=== PATIENT | male | born 1950 | race African-American/Black ===

== ENCOUNTER 2018-03-03 17:07 | Observation (INO) | payer OTHER ==
--- NOTE | 2018-03-03 18:20 | RAD REPORT ---
EXAM DESCRIPTION: CT - Head Brain Wo Cont - 03/03/2018 6:09 pm CLINICAL HISTORY: Syncope COMPARISON: None. TECHNIQUE: Computed axial tomography of the head was obtained. IV contrast was not requested. All CT scans are performed using dose optimization technique as appropriate and may include automated exposure control or mA/KV adjustment according to patient size. FINDINGS: An intracranial bleed is not seen . The ventricles are normal in caliber. A 1 centimeter low-density area within the right basal ganglia has the appearance of an old lacunar infarction. No extra-axial fluid collection is noted. Fluid within the sinuses/ mastoids is not seen. IMPRESSION: No acute intracranial abnormality is seen. If patient's symptoms persist MRI of the bra in would be recommended.
--- NOTE | 2018-03-03 18:30 | RAD REPORT ---
EXAM DESCRIPTION: Farhan Single View03/03/2018 6:14 pm CLINICAL HISTORY: Chest pain COMPARISON: 2013 FINDINGS: The lungs appear clear of acute infiltrate. The heart is borderline enlarged IMPRESSION: No acute abnormalities displayed
[2018-03-03 19:06] LABS: Absolute Monocytes 0.6 K/uL (0.1-1.3); Absolute Neutrophil 8.1 K/uL (1.8-8.0); Basophils % 0.5 % (0-1.3); Eosinophils % 1.9 % (0-4.4); Hematocrit 28.7 % (39.6-49.0); Lymphocytes % 10.1 % (15.3-44.8); MPV 8.2 fL (7.6-11.3); Monocytes % 6.2 % (3.3-12.3); Protime INR 1.46; RBC Red Blood Cell Count 3.44 M/uL (4.33-5.43)
--- NOTE | 2018-03-03 19:30 | ER ---
Nurse's Notes [facility] Name: Win Zheng Age: 67 yrs Sex: Male : 1950 Arrival Date: 03/03/2018 Time: 17:07 Bed 14 Private MD: Diagnosis: Syncope and collapse;Atrial fibrillation and flutter;Anemia, unspecified;Unspecified kidney failure Presentation: 03/03 17:09 Presenting complaint: EMS states: Pt became unresponsive and had a blank stare on his hb face for approx 2 minutes while sitting in truck, also had episode of bowel incontinence. 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 Transition of care: patient was not received from another setting of care. Onset of symptoms. Risk Assessment: Do you want to hurt yourself or someone else? Patient reports no desire to harm self or others. Care prior to arrival: None. 17:09 Method Of Arrival: EMS: [facility] 17:09 Acuity: RHONA 3 hb 17:10 Initial Sepsis Screen: Does the patient meet any 2 criteria? No. Patient's initial rb1 sepsis screen is negative. Does the patient have a suspected source of infection? No. Patient's initial sepsis screen is negative. Triage Assessment: 17:10 Neuro: Reports a syncopal episode. rb1 Historical: - Allergies: 17:14 No Known Allergies; hb - Home Meds: 17:14 celecoxib 200 mg Oral cap 1 cap once daily [Active]; glimepiride 1 mg Oral tab 1 tab hb twice a day [Active]; hydralazine 50 mg Oral tab 1 tab 2 times per day [Active]; losartan 100 mg Oral tab 1 tab once daily [Active]; simvastatin 40 mg Oral tab 1 tab once daily [Active]; sotalol 80 mg Oral tab 1 tab daily [Active]; spironolactone 25 mg Oral tab 1 tab once daily [Active]; tamsulosin 0.4 mg Oral cp24 1 cap once daily [Active]; terazosin 2 mg Oral cap 1 cap twice a day [Active]; Tradjenta 5 mg Oral tab 1 tab once daily [Active]; Xarelto 15 mg Oral tab [Active]; - PMHx: 17:14 Atrial Fib; Diabetes - NIDDM; Hyperlipidemia; Hypertension; hb - PSHx: 17:14 None; hb - Immunization history:: Adult Immunizations up to date. - Social history:: Smoking status: Patient/guardian denies using tobacco. - Ebola Screening: : No symptoms or risks identified at this time. Screenin:15 Abuse screen: Denies threats or abuse. Denies injuries from another. Nutritional hb screening: No deficits noted. Tuberculosis screening: No symptoms or risk factors identified. Fall Risk Total Mahoney Fall Scale indicates High Risk Score (45 or more points). Fall prevention measures have been instituted. Side Rails Up X 2 Frequent Obs/Assessments Occuring As available patient and family educated on Fall Prevention Program and Strategies. Assessment: 17:10 General: Appears in no apparent distress. comfortable, Behavior is calm, cooperative, rb1 Denies fever. Pain: Denies pain. Neuro: Level of Consciousness is awake, alert, obeys commands, Oriented to person, place, time, situation. Cardiovascular: Capillary refill < 3 seconds is brisk in bilateral fingers Rhythm is irregular. Respiratory: Airway is patent Respiratory effort is even, unlabored, Respiratory pattern is regular, symmetrical, Denies shortness of breath. GI: incontinent of stool and urine during the initial episode before arriving to the hospitial. : incontinence. Derm: Skin is dry, Skin is normal, Skin temperature is warm. Musculoskeletal: Range of motion: intact in all extremities. 18:10 Reassessment: Patient appears in no apparent distress at this time. No changes from rb1 previously documented assessment. Family at bedside. 19:19 General: Appears in no apparent distress. comfortable, Behavior is calm, cooperative, tl2 appropriate for age. Pain: Denies pain. Neuro: Level of Consciousness is awake, alert, obeys commands, Oriented to person, place, time, situation, Speech is normal, Facial symmetry appears normal. Cardiovascular: Denies chest pain, Rhythm is irregular. Respiratory: Airway is patent Respiratory effort is even, unlabored, Respiratory pattern is regular, symmetrical. GI: No signs and/or symptoms were reported involving the gastrointestinal system. : No signs and/or symptoms were reported regarding the genitourinary system. Derm: Skin is pink, warm \T\ dry. 20:30 Reassessment: Patient appears in no apparent distress at this time. Patient and/or tl2 family updated on plan of care and expected duration. Pain level reassessed. Patient is alert, oriented x 3, equal unlabored respirations, skin warm/dry/pink. 21:30 Reassessment: Patient appears in no apparent distress at this time. Patient and/or tl2 family updated on plan of care and expected duration. Pain level reassessed. Patient is alert, oriented x 3, equal unlabored respirations, skin warm/dry/pink. 23:31 Reassessment: Patient appears in no apparent distress at this time. Patient and/or tl2 family updated on plan of care and expected duration. Pain level reassessed. Patient is alert, oriented x 3, equal unlabored respirations, skin warm/dry/pink. pt stable and ready for transport to floor. Vital Signs: 17:15 BP 120 / 64; Pulse 62; Resp 16; Temp 98.1; Pulse Ox 97% on R/A; Pain 0/10; hb 18:45 BP 108 / 62; Pulse 63; Resp 24; Temp 97.9; Pulse Ox 100% ; hs1 19:18 BP 110 / 65; Pulse 68; Resp 20; Pulse Ox 98% on R/A; tl2 22:15 BP 114 / 58; Pulse 72; Resp 16; Pulse Ox 100% on R/A; tl2 Vitals: 19:18 Cardiac Rhythm Assessment Irregular. tl2 22:15 Cardiac Rhythm Assessment Irregular. tl2 ED Course: 17:07 Patient arrived in ED. hb 17:10 Patient has correct armband on for positive identification. Placed in gown. Bed in low rb1 position. Call light in reach. Side rails up X2. personnel monitor on. Pulse ox on. NIBP on. Warm blanket given. 17:13 Elliott Serrano MD is Attending Physician. kdr 17:13 Triage completed. hb 17:15 Arm band placed on. hb 17:15 Inserted saline lock: 22 gauge in right antecubital area, using aseptic technique. rb1 Blood collected. 17:26 EKG done, by air quality technician. reviewed by Elliott Serrano MD. sm3 17:27 Sandra Weeks, RN is Primary Nurse. rb1 18:08 CT Head Brain wo Cont In Process Unspecified. EDMS 18:14 CT completed. Patient tolerated procedure well. Patient moved back from CT. vm2 18:15 XRAY Chest (1 view) In Process Unspecified. EDOR 18:54 Attending Physician role handed off by Elliott Serrano MD [place] 18:54 Morro Diaz MD is Attending Physician. [place] 18:55 Report given to ANA Wu. rb1 19:26 Anna Marie Medina MD is Hospitalizing Provider. qing 20:56 Moose Duval MD is Hospitalizing Provider. qing 23:31 No provider procedures requiring assistance completed. Patient did not have IV access tl2 during this emergency room visit. Administered Medications: No medications were administered Outcome: 19:28 Decision to Hospitalize by Provider. qing 23:32 Admitted to Med/surg accompanied by tech, family with patient, via wheelchair, room tl2 429, with chart, Report called to ANA Rosado 23:32 Condition: stable 23:32 Discharge instructions given to patient, family, Instructed on the need for admit. 23:33 Patient left the ED. tl2 Signatures: Dispatcher [employer] EDOR Morro Diaz MD MD cha Rittger, Kevin, MD MD [facility] Sandra Weeks, RN RN rb1 Viv Acharya RN RN hb Knox, Taylor, RN RN tl2 Sabi Morales 2 Sofiya Bishop 3 Shawn Reyes [facility]
--- NOTE | 2018-03-03 19:30 | EDPHYS ---
Physician Documentation [facility] Name: Win Zheng Age: 67 yrs Sex: Male : 1950 Arrival Date: 03/03/2018 Time: 17:07 Bed 14 Private MD: ED Physician Morro Diaz HPI: 03/03 18:33 This 67 yrs old Black Male presents to ER via EMS with complaints of Syncope. kdr 18:33 The patient has experienced syncope, became unresponsive, The patient's went in kdr the store to get a money order and when she came out, the patient was unresponsive in the front seat of the car and he had soiled himself. This had never happened before and the patient has no recollection of the events. Onset: The symptoms/episode began/occurred suddenly, just prior to arrival. Duration: This was a single episode, that lasted an unknown period of time. Context: the episode(s) was witnessed, by family, occurred on a street or driveway, occurred while the patient was sitting, Just prior to the episode the patient experienced unknown symptoms. Associated injury: The patient did not suffer any apparent associated injury. Associated signs and symptoms: Pertinent positives: Incontinent of stool. Current symptoms: Currently, the patient is not experiencing any symptoms, the patient feels back to baseline. The patient has not experienced similar symptoms in the past. The patient has not recently seen a physician. Historical: - Allergies: 17:14 No Known Allergies; hb - Home Meds: 17:14 celecoxib 200 mg Oral cap 1 cap once daily [Active]; glimepiride 1 mg Oral tab 1 tab hb twice a day [Active]; hydralazine 50 mg Oral tab 1 tab 2 times per day [Active]; losartan 100 mg Oral tab 1 tab once daily [Active]; simvastatin 40 mg Oral tab 1 tab once daily [Active]; sotalol 80 mg Oral tab 1 tab daily [Active]; spironolactone 25 mg Oral tab 1 tab once daily [Active]; tamsulosin 0.4 mg Oral cp24 1 cap once daily [Active]; terazosin 2 mg Oral cap 1 cap twice a day [Active]; Tradjenta 5 mg Oral tab 1 tab once daily [Active]; Xarelto 15 mg Oral tab [Active]; - PMHx: 17:14 Atrial Fib; Diabetes - NIDDM; Hyperlipidemia; Hypertension; hb - PSHx: 17:14 None; hb - Immunization history:: Adult Immunizations up to date. - Social history:: Smoking status: Patient/guardian denies using tobacco. - Ebola Screening: : No symptoms or risks identified at this time. ROS: 18:33 Constitutional: Negative for fever, chills, and weight loss, Eyes: Negative for injury, kdr pain, redness, and discharge, ENT: Negative for injury, pain, and discharge, Neck: Negative for injury, pain, and swelling, Cardiovascular: Negative for chest pain, palpitations, and edema, Respiratory: Negative for shortness of breath, cough, wheezing, and pleuritic chest pain, Abdomen/GI: Negative for abdominal pain, nausea, vomiting, diarrhea, and constipation, Back: Negative for injury and pain, : Negative for injury, bleeding, discharge, and swelling, MS/Extremity: Negative for injury and deformity, Skin: Negative for injury, rash, and discoloration, Psych: Negative for depression, anxiety, suicide ideation, homicidal ideation, and hallucinations, Allergy/Immunology: Negative for hives, rash, and allergies, Endocrine: Negative for neck swelling, polydipsia, polyuria, polyphagia, and marked weight changes, Hematologic/Lymphatic: Negative for swollen nodes, abnormal bleeding, and unusual bruising. 18:33 Neuro: Positive for loss of consciousness, syncope, weakness, Negative for headache, seizure activity, tremor. Exam: 18:33 Constitutional: This is a well developed, well nourished patient who is awake, alert, kdr and in no acute distress. Head/Face: Normocephalic, atraumatic. Eyes: Pupils equal round and reactive to light, extra-ocular motions intact. Lids and lashes normal. Conjunctiva and sclera are non-icteric and not injected. Cornea within normal limits. Periorbital areas with no swelling, redness, or edema. Neck: Trachea midline, no thyromegaly or masses palpated, and no cervical lymphadenopathy. Supple, full range of motion without nuchal rigidity, or vertebral point tenderness. No Meningismus. Chest/axilla: Normal chest wall appearance and motion. Nontender with no deformity. No lesions are appreciated. Respiratory: Lungs have equal breath sounds bilaterally, clear to auscultation and percussion. No rales, rhonchi or wheezes noted. No increased work of breathing, no retractions or nasal flaring. Abdomen/GI: Soft, non-tender, with normal bowel sounds. No distension or tympany. No guarding or rebound. No evidence of tenderness throughout. Back: No spinal tenderness. No costovertebral tenderness. Full range of motion. Skin: Warm, dry with normal turgor. Normal color with no rashes, no lesions, and no evidence of cellulitis. MS/ Extremity: Pulses equal, no cyanosis. Neurovascular intact. Full, normal range of motion. Neuro: Awake and alert, GCS 15, oriented to person, place, time, and situation. Cranial nerves II-XII grossly intact. Motor strength 5/5 in all extremities. Sensory grossly intact. Cerebellar exam normal. Normal gait. Psych: Awake, alert, with orientation to person, place and time. Behavior, mood, and affect are within normal limits. 18:33 Cardiovascular: Rate: normal, Rhythm: irregularly irregular. Vital Signs: 17:15 BP 120 / 64; Pulse 62; Resp 16; Temp 98.1; Pulse Ox 97% on R/A; Pain 0/10; hb 18:45 BP 108 / 62; Pulse 63; Resp 24; Temp 97.9; Pulse Ox 100% ; hs1 19:18 BP 110 / 65; Pulse 68; Resp 20; Pulse Ox 98% on R/A; tl2 22:15 BP 114 / 58; Pulse 72; Resp 16; Pulse Ox 100% on R/A; tl2 MDM: 18:33 Data reviewed: vital signs, nurses notes, lab test result(s), radiologic studies. kdr Counseling: I had a detailed discussion with the patient and/or guardian regarding: the historical points, exam findings, and any diagnostic results supporting the discharge/admit diagnosis, lab results, radiology results. 18:55 Patient medically screened. qing 03/03 17:14 Order name: Basic Metabolic Panel; Complete Time: 19:51 kdr 03/03 17:14 Order name: CBC with Diff; Complete Time: 19:51 kdr 03/03 17:14 Order name: LFT's; Complete Time: 19:51 kdr 03/03 17:14 Order name: Magnesium; Complete Time: 19:51 kdr 03/03 17:14 Order name: NT PRO-BNP; Complete Time: 19:51 kdr 03/03 17:14 Order name: PT-INR; Complete Time: 19:25 kdr 03/03 17:14 Order name: Troponin (emerg Dept Use Only); Complete Time: 19:51 kdr 03/03 17:14 Order name: XRAY Chest (1 view); Complete Time: 19:25 kdr 03/03 17:14 Order name: EKG; Complete Time: 17:14 kdr 03/03 17:14 Order name: Cardiac monitoring; Complete Time: 17:49 kdr 03/03 17:23 Order name: CT Head Brain wo Cont; Complete Time: 18:23 kdr 03/03 19:08 Order name: CBC Smear Scan; Complete Time: 19:51 EDHI 03/03 20:05 Order name: Urine Dipstick--Ancillary (enter results) nv 03/03 21:00 Order name: CONS Physician Consult [facility] 03/03 17:14 Order name: EKG - Nurse/Tech; Complete Time: 17:49 kdr 03/03 17:14 Order name: IV Saline Lock; Complete Time: 17:49 [facility] 03/03 17:14 Order name: Labs collected and sent; Complete Time: 17:49 [facility] 03/03 17:14 Order name: O2 Per Protocol; Complete Time: 17:49 kdr 03/03 17:14 Order name: O2 Sat Monitoring; Complete Time: 17:50 [facility] 03/03 18:12 Order name: Labs - recollect needed; Complete Time: 18:27 03/03 20:13 Order name: Urine Dipstick-Ancillary (obtain specimen); Complete Time: 20:14 tl2 Administered Medications: No medications were administered Disposition: 03/03/18 19:28 Hospitalization ordered by Moose Duval for Observation. Preliminary diagnosis are Syncope and collapse, Atrial fibrillation and flutter, Anemia, unspecified, Unspecified kidney failure. - Bed requested for Telemetry/MedSurg (observation). - Status is Observation. tl2 - Condition is Fair. - Problem is new. - Symptoms have improved. UTI on Admission? No Signatures: Dispatcher [employer] [facility] Morro Diaz MD MD cha Rittger, Kevin, MD MD kdr Gallardo, Ana ag Garcia, Cindy, RN RN cg Baxter, Heather, RN RN Jazmin Blevins RN RN tl2 Corrections: (The following items were deleted from the chart) 19:52 19:28 Hospitalization Ordered by Anna Marie Medina MD for Observation. Preliminary qing diagnosis is Syncope and collapse; Atrial fibrillation and flutter. Bed requested for Telemetry/MedSurg (observation). Status is Observation. Condition is Fair. Problem is new. Symptoms have improved. UTI on Admission? No. qing 20:56 19:52 03/03/2018 19:28 Hospitalization Ordered by Anna Marie Medina MD for Observation. qing Preliminary diagnosis is Syncope and collapse; Atrial fibrillation and flutter; Anemia, unspecified; Unspecified kidney failure. Bed requested for Telemetry/MedSurg (observation). Status is Observation. Condition is Fair. Problem is new. Symptoms have improved. UTI on Admission? No. qing 21:18 20:56 03/03/2018 19:28 Hospitalization Ordered by Moose Duval MD for Observation. Preliminary diagnosis is Syncope and collapse; Atrial fibrillation and flutter; Anemia, unspecified; Unspecified kidney failure. Bed requested for Telemetry/MedSurg (observation). Status is Observation. Condition is Fair. Problem is new. Symptoms have improved. UTI on Admission? No. qing 22:32 21:18 03/03/2018 19:28 Hospitalization Ordered by Moose Duval MD for Observation. cg Preliminary diagnosis is Syncope and collapse; Atrial fibrillation and flutter; Anemia, unspecified; Unspecified kidney failure. Bed requested for Telemetry/MedSurg (observation). Status is Observation. Condition is Fair. Problem is new. Symptoms have improved. UTI on Admission? No. cg 23:33 22:32 03/03/2018 19:28 Hospitalization Ordered by Moose Duval MD for Observation. tl2 Preliminary diagnosis is Syncope and collapse; Atrial fibrillation and flutter; Anemia, unspecified; Unspecified kidney failure. Bed requested for Telemetry/MedSurg (observation). Status is Observation. Condition is Fair. Problem is new. Symptoms have improved. UTI on Admission? No. cg
[2018-03-03 19:33] LABS: Potassium 4.5 mmol/L (3.5-5.1)
[2018-03-03 19:34] LABS: Albumin 3.5 g/dL (3.4-5.0); Bilirubin Direct 0.1 mg/dL (0-0.2); Bilirubin Total 0.3 mg/dL (0.2-1.0); Protein, Total 8.2 g/dL (6.4-8.2)
[2018-03-03 19:35] LABS: Magnesium 2.3 mg/dL (1.8-2.4); Troponin (Emerg Dept Use Only) 0.12 ng/mL (0.0-0.045)
[2018-03-03 19:37] LABS: Anisocytosis 1+; Blood Morphology Comment NOTED (NOT SEEN); Platelet Estimate ADEQ; Urine White Blood Cell Casts OK
[2018-03-03 19:38] LABS: Elliptocytes 1+; Macrocytosis SLIGHT; Spherocyte 1+
[2018-03-03 21:08] LABS: Urine Blood NEGATIVE (NEG); Urine Glucose NEGATIVE (NEG); Urine Protein NEGATIVE (NEG); Urine Specific Gravity 1.015 (1.005-1.030)
[2018-03-03] MEDS ORDERED: ONDANSETRON 4 MG/2 ML VIAL IV PRN (23:56)
[2018-03-03] MEDS ORDERED: ACETAMINOPHEN 500 MG TAB PO PRN (23:56)
[2018-03-04 00:07] VITALS: BMI 34.2
[2018-03-04 05:14] LABS: Absolute Lymphocytes (CBC) 1.4 K/uL (0.7-4.9); Absolute Monocytes 0.6 K/uL (0.1-1.3); Absolute Neutrophil 4.8 K/uL (1.8-8.0); Basophils % 0.4 % (0-1.3); Eosinophils % 2.4 % (0-4.4); Hematocrit 27.5 % (39.6-49.0); Lymphocytes % 20.3 % (15.3-44.8); MPV 8.3 fL (7.6-11.3); Monocytes % 8.5 % (3.3-12.3)
--- NOTE | 2018-03-04 07:47 | EKG ---
Test Date: 2018-03-03 Test Time: 17:19:57 [employer]: [employer] MEASUREMENT RESULTS: Intervals: Rate: 64 NE: 224 QRSD: 76 QT: 460 QTc: 474 [place]: P: 13 NE: 224 QRS: 45 T: 24 INTERPRETIVE STATEMENTS: Sinus rhythm with 1st degree AV block with premature supraventricular complexes Septal infarct, age undetermined Abnormal ECG Compared to ECG 05/11/2013 19:55:11 First degree AV block now present Myocardial infarct finding now present Left-axis deviation no longer present Left ventricular hypertrophy no longer present T-wave abnormality no longer present Possible ischemia no longer present Prolonged QT interval no longer present Electronically Signed On 03-04-18 07:45:56 MONITOR TECH by Ash Loya
[2018-03-04] MEDS ORDERED: NA CHLORIDE 0.9% 1,000 ML IV SCH (09:00)
--- NOTE | 2018-03-04 09:07 | RAD REPORT ---
EXAM DESCRIPTION: Farhan Single View03/04/2018 6:32 am CLINICAL HISTORY: Chest pain COMPARISON: March 03, 2018 FINDINGS: Right base has become mildly hazy. Left lung appears clear. The heart is mildly enlarged IMPRESSION: Right base has become mildly hazy which may indicate atelectasis or pneumonia
--- NOTE | 2018-03-04 09:23 | P.HP ---
Certification for Inpatient Patient admitted to: Inpatient With expected LOS: >2 Midnights Practitioner: I am a practitioner with admitting privileges, knowledge of patient current condition, hospital course, and medical plan of care. Services: Services provided to patient in accordance with Admission requirements found in Title 42 Section 412.3 of the Code of Federal Regulations Patient History Date of Service: 03/04/18 Primary Care Provider: Valerie Hoffman Reason for admission: Syncope, acute on chronic renal failure History of Present Illness: Patient is a pleasant gentleman who sees Valerie Hoffman. He has a history of atrial fib, cad, dm2, stage 3 ckd. He had a syncopal episode yesterday in his truck. Was post ictal for a few minutes. Was brought to the ER. He has a slight elevation in his troponins. The patient has been having runs of a fib throught the night in the hospital. He has a baseline creatine of 2.2. Currently 3.2. The patient has not been having any chest pain, syncope or near syncope episodes during the evening. Despite the runs of afib with rvr. Allergies No Known Allergies Allergy (Unverified 05/10/13 08:57) - Past Medical/Surgical History Has patient received pneumonia vaccine in the past: No Diabetic: Yes -: Afib -: Anemia -: KIdney Failure -: Diabetes - Family History Father -: Hypertension, Diabetes Mother -: Hypertension - Social History Smoking Status: Never smoker Alcohol use: Yes CD- Drugs: No Caffeine use: Yes Place of Residence: Home Review of Systems 10-point ROS is otherwise unremarkable General: Other (syncopal episode) Physical Examination - Vital Signs Temperature: 98.1 F Blood Pressure: 108/58 Pulse: 65 Respirations: 17 Pulse Ox (%): 95 - Physical Exam General: Alert, In no apparent distress HEENT: Atraumatic, PERRLA, Mucous membr. moist/pink, EOMI, Sclerae nonicteric Neck: Supple, 2+ carotid pulse no bruit, No LAD, Without JVD or thyroid abnormality Respiratory: Clear to auscultation bilaterally, Normal air movement Cardiovascular: Regular rate/rhythm, Normal S1 S2 Gastrointestinal: Normal bowel sounds, No tenderness Musculoskeletal: No tenderness Integumentary: No rashes Neurological: Normal gait, Normal speech, Normal strength at 5/5 x4 extr, Normal tone, Normal affect Lymphatics: No axilla or inguinal lymphadenopathy - Studies Laboratory Data (last 24 hrs) 03/03/18 18:50: PT 17.3 H, INR 1.46 03/03/18 18:50: WBC 10.0, Hgb 9.5 L, Hct 28.7 L, Plt Count 221 03/03/18 18:50: Sodium 139, Potassium 4.5, BUN 59 H, Creatinine 3.35 H, Glucose 108 H, Magnesium 2.3, Total Bilirubin 0.3, AST 16, ALT 21, Alkaline Phosphatase 90 Assessment and Plan - Problems (Diagnosis) (1) Atrial fibrillation with RVR Current Visit: Yes Status: Acute Plan: Restart the patient's sotolol. Will get an echocardiogram. Has a consult to Dr. Dyson his regular manager performance. (2) Acute renal failure superimposed on stage 3 chronic kidney disease Current Visit: Yes Status: Acute Plan: Consult to Dr. Zimmerman. Hold the losartan. Start the patient on iv fluids. will monitor his creatine. Qualifiers: Acute renal failure type: unspecified Qualified Code(s): N17.9 - Acute kidney failure, unspecified; N18.3 - Chronic kidney disease, stage 3 (moderate) (3) CAD (coronary artery disease) Current Visit: Yes Status: Acute Plan: Mild elevation of troponins. Asymptomatic. Not too concerning. However will be seen by Dr. Dyson. Qualifiers: Coronary Disease-Associated Artery/Lesion type: [place] artery [place] vs. transplanted heart: [place] heart Associated angina: without angina Qualified Code(s): I25.10 - Atherosclerotic heart disease of [place] coronary artery without angina pectoris (4) Diabetes 1.5, managed as type 2 Current Visit: Yes Status: Acute Plan: check a1c. Will start on insulin sliding scale. Discharge Plan: Home Plan to discharge in: 48 Hours - Advance Directives Does patient have a Living Will: No Does patient have a Durable POA for Healthcare: No - Code Status/Comfort Care Code Status Assessed: Yes Code Status: Full Code Physician Review: Patient Assessed, Agree with Above Assessment and Plan Critical Care: No Time Spent Managing Pts Care (In Minutes): 50
[2018-03-04] MEDS ORDERED: D50W 25 GM/50 ML SYRINGE IV PRN (09:30)
[2018-03-04] MEDS ORDERED: GLUCAGON 1 MG/VIAL IM PRN (09:30)
[2018-03-04] MEDS: INSULIN -REGULAR HUMAN 50 UNIT/0.5 ML ML SQ SCH ×3 (11:30→21:00)
[2018-03-04] MEDS: NACHLORIDE 0.45% 1,000 ML IV SCH (12:00)
--- NOTE | 2018-03-04 15:21 | RAD REPORT ---
EXAM DESCRIPTION: US - Renal Ultrasound-Complete - 03/04/2018 3:02 pm CLINICAL HISTORY: Acute renal failure COMPARISON: RP EXAM COMPLETE dated 05/14/2013 FINDINGS: Both kidneys are normal in size, shape and echotexture. Small benign renal cysts are prese nt bilaterally. The right kidney measures 10.5 x 6.3 x 4.8 cm. No hydronephrosis, focal mass or perinephric fluid. The left kidney measures 10.9 x 4.8 x 4.8 cm. No hydronephrosis, focal mass or perinephric fluid. The urinary bladder is incompletely distended without gross abnormality seen. IMPRESSION: Unremarkable renal sonogram.
--- NOTE | 2018-03-04 16:14 | CON ---
Date of Consultation: 03/04/2018 Reason For Consult: Acute on chronic renal insufficiency. History Of Present Illness: Mr. Zheng is a 67-year-old male with past medical history significant for morbid obesity, hypertension, atrial fibrillation, chronic stage 3 CKD, type 2 diabetes, who pre sented to [facility] after he was found to have a syncopal episode by his family. The patie nt's daughter is reporting that he picked his daughter up from work and after they stopped over at e grocery store and when the daughter got back to the truck, she found her father sleeping and kind o f unresponsive. He was able to be aroused, but was able to recognize them, however, passed out again and hence, she brought him to the hospital for further evaluation for evaluation of syncope. He was found to have acute on chronic renal insufficiency with slight elevations of troponins and runs of a trial fibrillation throughout the night in the hospital. He has also been started on IV fluids to im prove his renal function. Past Medical History: Significant for history of atrial fibrillation, anemia, CKD stage 3, type 2 di abetes, and obesity. The patient is on long-term anticoagulation. Family History: Significant for father with history of hypertension and diabetes. Mother with histo ry of hypertension. Social History: No history of smoking reported. Occasional alcohol use. No history of drug abuse r eported. Review of Systems: Positive for weakness and lethargy, but otherwise denies any decreased p.o. intake prior to this epis ode. Denies any abnormal involuntary movement during the syncopal episode. All other review of syst ems are negative. Physical Examination: Vital Signs: At this time are showing temperature of 98.1, pulse rate of 65, respiratory rate of 17, and blood pressure 108/58. General Examination: He is an obese male, in no acute distress. HEENT Examination: Atraumatic head. Lungs: Auscultation of lungs revealed bilateral equal air entry. The lungs were clear to auscultati on. Heart: Auscultation of the heart reveals irregular rate and rhythm. No carotid bruit was noted. Abdomen: Obese, nontender. Extremities: Showed no evidence of edema. Laboratory Data: Showing a creatinine of 3.3, which is about the same as yesterday. Sodium of 142, potassium of 4, chloride of 110, bicarb of 22. His A1c was 6.6 and troponin was sightly elevated to 0.1. Current Medications: Include he is getting normal saline at 75 cc an hour, sotalol 80 mg a day, miguel angel zosin 2 mg at bedtime, hydralazine 50 mg b.i.d., atorvastatin, Tylenol. Impression: 1.Acute on chronic renal insufficiency, possibly secondary to acute tubular necrosis from ongoing ir regular blood supply renal perfusion secondary to possibly from atrial fibrillation. The patient is getting IV fluids at this time. His blood pressure seems to be overall stable. We will go ahead and changed IV fluids to half-normal saline and monitor him closely. 2.History of atrial fibrillation seems to be rate controlled at this time. However, troponin has bu mped up, possibly from strain. We are awaiting Cardiology evaluation for further treatment. 3.Hypertension, currently slightly hypotensive. The patient is on terazosin, which I will discontin ue. We will continue the hydralazine for now and monitor it closely. 4.Type 2 diabetes, not sure what the patient was taking at home. The patient's home medications can be restarted secondary to ongoing hyperglycemia. Plan: The patient is overall doing okay at this time. We will go ahead and change the IV fluids to half-normal saline and monitor renal function closely. He is nonoliguric. We will also request a ur inalysis to rule out urinary tract infection and also get a renal ultrasound for further evaluation. Continue all other medications. Thank you very much for this consultation. Please do not hesitate to call us with any questions or c oncerns. CANDELARIA/LINCOLN Voice ID: [id number] Report ID: [id number]
[2018-03-04] MEDS ORDERED: ENOXAPARIN 30 MG/0.3 ML SQ SCH (17:00)
--- NOTE | 2018-03-04 17:02 | CON ---
Reason For Admission: The patient's main reason for admission was syncope. History Of Present Illness: Mr. Zheng is a 67-year-old black male who has an extensive past medic al history including chronic atrial fibrillation, diabetes, hypertension, dyslipidemia, arthritis, an d benign prostatic hypertrophy. He takes an extensive list of medication which I believe may have ca used his symptoms. He came in with a syncopal episode. No chest pain. He was found to have a creat inine of 3.32. He was anemic at 9.1. Troponin was 0.11 and 0.12. An echocardiogram is pending. Allergies: NONE. Review of Systems: Negative. Social History: Negative. Family History: Negative. Medications: At home include Flomax, Aldactone, Hytrin, Glucophage, Celebrex, hydralazine, Zocor, so talol and Xarelto. Physical Examination: Vital Signs: Stable. He was in sinus rhythm. HEENT: Negative. Neck: Supple with no bruit. Chest: Clear. Cardiac: Revealed a regular rhythm and rate with an S4 gallops. No murmurs or rubs. Abdomen: Benign. Extremities: Revealed no clubbing, cyanosis, or edema. Diagnostic Data: Stated earlier. CT of the head was negative. EKG was normal. Impression And Plan: 1.I think, Mr. Verde syncope is most likely secondary to orthostatic hypotension, exacerbated by renal failure and anemia. 2.Elevated troponin secondary to renal failure. 3.Benign prostatic hypertrophy. 4.Hypertension. 5.Diabetes. 6.Atrial fibrillation, resolved, on sotalol and Xarelto. 7.Dyslipidemia. I think, Mr. Zheng' combination of Flomax, Hytrin, and Aldactone certainly could have contributed to his syncope. I would see if we can get off at least one of those medications for now. We will se e what the echocardiogram shows. It may be reasonable to do an outpatient carotid Doppler and a Phyllis scan on him and maybe an event monitor depending what we see. He needs his anemia addressed and his renal failure certainly addressed as well with renal consultation. CASSY/LINCOLN Voice ID: [id number] Report ID: [id number]
[2018-03-04] MEDS: RIVAROXABAN 15 MG TABLET PO SCH (17:46)
[2018-03-04] MEDS ORDERED: TERAZOSIN HCL 1 MG CAP PO SCH (21:00)
[2018-03-04] MEDS: HYDRALAZINE HCL 25 MG TABLET PO SCH (21:26)
[2018-03-04] MEDS: ATORVASTATIN 20 MG TAB PO SCH (21:26)
[2018-03-05] MEDS: NACHLORIDE 0.45% 1,000 ML IV SCH ×3 (01:20→14:40)
[2018-03-05 04:46] LABS: Absolute Lymphocytes (CBC) 1.3 K/uL (0.7-4.9); Absolute Monocytes 0.6 K/uL (0.1-1.3); Absolute Neutrophil 4.4 K/uL (1.8-8.0); Basophils % 0.5 % (0-1.3); Eosinophils % 3.3 % (0-4.4); Hematocrit 25.8 % (39.6-49.0); Lymphocytes % 20.2 % (15.3-44.8); MPV 7.7 fL (7.6-11.3); Monocytes % 9.3 % (3.3-12.3)
[2018-03-05 05:10] LABS: Albumin 3.1 g/dL (3.4-5.0); Bilirubin Total 0.3 mg/dL (0.2-1.0); Potassium 4.1 mmol/L (3.5-5.1); Protein, Total 7.4 g/dL (6.4-8.2); Thyroid Stimulating Hormone 1.53 uIU/mL (0.360-3.740)
[2018-03-05] MEDS: PANTOPRAZOLE 40MG TABLET PO SCH (06:17)
[2018-03-05] MEDS: SOTALOL HCL 80 MG TAB PO SCH (06:17)
[2018-03-05] MEDS: INSULIN -REGULAR HUMAN 50 UNIT/0.5 ML ML SQ SCH ×4 (07:30→20:59)
[2018-03-05] MEDS: HYDRALAZINE HCL 25 MG TABLET PO SCH ×2 (08:30→20:58)
--- NOTE | 2018-03-05 11:01 | P.PN ---
Subjective Date of Service: 03/05/18 Primary Care Provider: Valerie Hoffman Chief Complaint: Syncope, acute on chronic renal failure Subjective: Improving (no chest pains or palpations) Review of Systems 10-point ROS is otherwise unremarkable Physical Examination - Vital Signs Temperature: 97.4 F Blood Pressure: 133/67 Pulse: 68 Respirations: 17 Pulse Ox (%): 98 - Physical Exam General: Alert, In no apparent distress HEENT: Atraumatic, PERRLA, EOMI Neck: Supple, JVD not distended Respiratory: Clear to auscultation bilaterally, Normal air movement Cardiovascular: Regular rate/rhythm, Normal S1 S2 Gastrointestinal: Normal bowel sounds, No tenderness Musculoskeletal: No tenderness Integumentary: No rashes Neurological: Normal speech, Normal tone, Normal affect Lymphatics: No axilla or inguinal lymphadenopathy Assessment & Plan - Problems (Diagnosis) (1) Acute renal failure superimposed on stage 3 chronic kidney disease Current Visit: Yes Status: Acute Plan: Consult to Dr. Zimmerman. mild improvement. Not back to baseline. Will keep him one more. Day. If Dr. Zimmerman is oka with discharge we can send him. Will await her input Qualifiers: Acute renal failure type: unspecified Qualified Code(s): N17.9 - Acute kidney failure, unspecified; N18.3 - Chronic kidney disease, stage 3 (moderate) (2) Atrial fibrillation with RVR Current Visit: Yes Status: Acute Plan: Restart the patient's sotolol. Will get an echocardiogram. Has a consult to Dr. Dyson his regular vessel liner. (3) CAD (coronary artery disease) Current Visit: Yes Status: Acute Plan: Mild elevation of troponins. Asymptomatic. Not too concerning. However will be seen by Dr. Dyson. Qualifiers: Coronary Disease-Associated Artery/Lesion type: [place] artery [place] vs. transplanted heart: [place] heart Associated angina: without angina Qualified Code(s): I25.10 - Atherosclerotic heart disease of [place] coronary artery without angina pectoris (4) Diabetes 1.5, managed as type 2 Current Visit: Yes Status: Acute Plan: check a1c. Will start on insulin sliding scale. Discharge Plan: Home Plan to discharge in: 24 Hours - Code Status/Comfort Care Code Status Assessed: No Code Status: Full Code Physician Review: Patient Assessed, Agree with Above Assessment and Plan Critical Care: No Time Spent Managing Pts Care (In Minutes): 20
--- NOTE | 2018-03-05 13:59 | EKG ---
Test Date: 2018-03-04 Test Time: 07:56:55 Staffing Consultant: RAMONITA MEASUREMENT RESULTS: Intervals: Rate: 64 SC: QRSD: 78 QT: 442 QTc: 455 Davis: P: SC: QRS: 32 T: 1 INTERPRETIVE STATEMENTS: Atrial fibrillation Cannot rule out Anterior infarct, age undetermined Abnormal ECG Compared to ECG 03/03/2018 17:19:57 Sinus rhythm no longer present Atrial premature complex(es) no longer present First degree AV block no longer present Myocardial infarct finding still present Electronically Signed On 03-05-18 13:54:40 PLATINUM SMITH by Ash Loya
[2018-03-05] MEDS: RIVAROXABAN 15 MG TABLET PO SCH (16:50)
[2018-03-05] MEDS: ATORVASTATIN 20 MG TAB PO SCH (20:58)
--- NOTE | 2018-03-05 21:46 | PN ---
Date of Progress Note: 03/05/2018 NEPHROLOGY PROGRESS NOTE Subjective: The patient is seen at the bedside. No overnight events reported. The patient feels we ll. He denies any fevers, chills, chest pain, shortness of breath, nausea, vomiting, or diarrhea. Objective: Vital Signs: Blood pressure is 124/67, pulse 65, afebrile. General: Elderly, no acute distress. Heart: Regular rate and rhythm. No murmurs, rubs, or gallops. Lungs: Clear to auscultation bilaterally. Abdomen: Soft, nontender, nondistended. Positive bowel sounds x4. Extremities: No significant edema. Chronic contractures noted of the upper extremity. Laboratory Data: CBC reviewed. Hemoglobin 8.6, hematocrit 25.8. Serum chemistry; sodium 141, potas sium 4.1, chloride 110, CO2 of 21, BUN 63, creatinine 2.94. Creatinine yesterday was 3.32 and on adm ission was 3.35. The patient's usual baseline creatinine is approximately 3. The patient's UA from March 03 was bland. Current Medications: The patient is continued on half NS at 75 mL/h. Also on hydralazine 50 twice d aily, sotalol 80 mg daily, Xarelto 15 mg every evening. Impression: 1.Acute kidney injury on chronic kidney disease, likely in the setting of hypotension, volume deplet ion and atrial fibrillation. 2.Syncopal event as likely same etiology. 3.Atrial fibrillation. 4.Hypertension. Plan: Renal function is showing improvement. The patient's baseline creatinine is 3. We will jenn nue the patient on IV hydration. Blood pressure appears to be well controlled with the regimen, jay bowers has been down titrated from his usual home medications. Continue to monitor the patient's blood pr essure and will make adjustments as necessary. Continue cardiology followup. The patient does have anemia. Iron panel has been ordered to assess if there is any evidence of iron-deficiency anemia as the patient is above the threshold for use of erythropoietin stimulating agents. SE/MODL Voice ID: [id number] Report ID: [id number]
[2018-03-06] MEDS: NACHLORIDE 0.45% 1,000 ML IV SCH (02:42)
[2018-03-06] MEDS: SOTALOL HCL 80 MG TAB PO SCH (06:07)
[2018-03-06] MEDS: PANTOPRAZOLE 40MG TABLET PO SCH (06:07)
[2018-03-06] MEDS: INSULIN -REGULAR HUMAN 50 UNIT/0.5 ML ML SQ SCH ×2 (07:30→11:30)
[2018-03-06 07:44] LABS: Absolute Lymphocytes (CBC) 1.1 K/uL (0.7-4.9); Absolute Monocytes 0.4 K/uL (0.1-1.3); Absolute Neutrophil 3.9 K/uL (1.8-8.0); Basophils % 0.5 % (0-1.3); Eosinophils % 3.6 % (0-4.4); Hematocrit 26.6 % (39.6-49.0); Lymphocytes % 19.6 % (15.3-44.8); MPV 7.9 fL (7.6-11.3); Monocytes % 7.5 % (3.3-12.3); RBC Red Blood Cell Count 3.18 M/uL (4.33-5.43)
[2018-03-06 08:09] LABS: Albumin 3.2 g/dL (3.4-5.0); Bilirubin Total 0.3 mg/dL (0.2-1.0); Potassium 4.5 mmol/L (3.5-5.1); Protein, Total 7.4 g/dL (6.4-8.2)
[2018-03-06] MEDS: HYDRALAZINE HCL 25 MG TABLET PO SCH (09:13)
[2018-03-06 11:32] VITALS: O2SAT 99
--- NOTE | 2018-03-06 11:54 | P.PN ---
Subjective Date of Service: 03/06/18 Primary Care Provider: Valerie Hoffman Chief Complaint: Syncope, acute on chronic renal failure Subjective: Improving Review of Systems 10-point ROS is otherwise unremarkable Physical Examination - Vital Signs Temperature: 98.2 F Blood Pressure: 123/72 Pulse: 55 Respirations: 20 Pulse Ox (%): 99 - Physical Exam General: Alert, In no apparent distress HEENT: Atraumatic, PERRLA, EOMI Neck: Supple, JVD not distended Respiratory: Clear to auscultation bilaterally, Normal air movement Cardiovascular: Regular rate/rhythm, Normal S1 S2 Gastrointestinal: Normal bowel sounds, No tenderness Musculoskeletal: No tenderness Integumentary: No rashes Neurological: Normal speech, Normal tone, Normal affect Lymphatics: No axilla or inguinal lymphadenopathy Assessment & Plan - Problems (Diagnosis) (1) Acute renal failure superimposed on stage 3 chronic kidney disease Current Visit: Yes Status: Acute Plan: Consult to Dr. Zimmerman. mild improvement. Patient is at his baseline. Will discharge home. Follow up with PCP Tamiko Hoffman and Dr. Zimmerman Qualifiers: Acute renal failure type: unspecified Qualified Code(s): N17.9 - Acute kidney failure, unspecified; N18.3 - Chronic kidney disease, stage 3 (moderate) (2) Atrial fibrillation with RVR Current Visit: Yes Status: Acute Plan: carotid doppler suggested by Cardiology. Will have PTs pcp follow up on this (3) CAD (coronary artery disease) Current Visit: Yes Status: Acute Plan: Mild elevation of troponins. Asymptomatic. Not too concerning. However will be seen by Dr. Dyson. Qualifiers: Coronary Disease-Associated Artery/Lesion type: [place] artery [place] vs. transplanted heart: [place] heart Associated angina: without angina Qualified Code(s): I25.10 - Atherosclerotic heart disease of [place] coronary artery without angina pectoris (4) Diabetes 1.5, managed as type 2 Current Visit: Yes Status: Acute Plan: check a1c. Will start on insulin sliding scale. Discharge Plan: Home - Code Status/Comfort Care Code Status Assessed: No Code Status: Full Code Physician Review: Patient Assessed, Agree with Above Assessment and Plan Critical Care: No Time Spent Managing Pts Care (In Minutes): 25
--- NOTE | 2018-03-06 11:56 | P.DS ---
Admission Date: 03/03/18 Discharge Date: 03/06/18 Primary Care Provider: Valreie Hoffman Disposition: ROUTINE DISCHARGE Discharge Condition: FAIR Reason for Admission: Syncope, acute on chronic renal failure - Problems (1) Acute renal failure superimposed on stage 3 chronic kidney disease Current Visit: Yes Status: Acute Qualifiers: Acute renal failure type: unspecified Qualified Code(s): N17.9 - Acute kidney failure, unspecified; N18.3 - Chronic kidney disease, stage 3 (moderate) (2) Atrial fibrillation with RVR Current Visit: Yes Status: Acute (3) CAD (coronary artery disease) Current Visit: Yes Status: Acute Qualifiers: Coronary Disease-Associated Artery/Lesion type: [place] artery [place] vs. transplanted heart: [place] heart Associated angina: without angina Qualified Code(s): I25.10 - Atherosclerotic heart disease of [place] coronary artery without angina pectoris (4) Diabetes 1.5, managed as type 2 Current Visit: Yes Status: Acute Brief History of Present Illness: Patient is a pleasant gentleman who sees Vlaerie Hoffman. He has a history of atrial fib, cad, dm2, stage 3 ckd. He had a syncopal episode yesterday in his truck. Was post ictal for a few minutes. Was brought to the ER. He has a slight elevation in his troponins. The patient has been having runs of a fib throught the night in the hospital. He has a baseline creatine of 2.2. Currently 3.2. The patient has not been having any chest pain, syncope or near syncope episodes during the evening. Despite the runs of afib with rvr. Hospital Course: Patient admitted started on fluids. Seen by Dr. Loya and Dr. Zimmerman. His creatine is back at baseline. Will have him follow up with his PCP Alycia Hoffman Vital Signs/Physical Exam: Temp Pulse Resp BP Pulse Ox 98.2 F 55 20 123/72 99 03/06/18 11:54 03/06/18 11:54 03/06/18 11:54 03/06/18 11:54 03/06/18 11:54 General: Alert, In no apparent distress HEENT: Atraumatic, PERRLA, EOMI Neck: Supple, JVD not distended Respiratory: Clear to auscultation bilaterally, Normal air movement Cardiovascular: Regular rate/rhythm, Normal S1 S2 Gastrointestinal: Normal bowel sounds, No tenderness Musculoskeletal: No tenderness Integumentary: No rashes Neurological: Normal speech, Normal tone, Normal affect Lymphatics: No axilla or inguinal lymphadenopathy Laboratory Data at Discharge: WBC 5.7 K/uL (4.3-10.9) 03/06/18 06:59 Hgb 8.7 g/dL (13.6-17.9) L 03/06/18 06:59 Hct 26.6 % (39.6-49.0) L 03/06/18 06:59 Plt Count 234 K/uL (152-406) 03/06/18 06:59 PT 17.3 SECONDS (9.5-12.5) H 03/03/18 18:50 INR 1.46 03/03/18 18:50 Sodium 141 mmol/L (136-145) 03/06/18 06:59 Potassium 4.5 mmol/L (3.5-5.1) 03/06/18 06:59 BUN 50 mg/dL (7-18) H 03/06/18 06:59 Creatinine 2.46 mg/dL (0.55-1.3) H 03/06/18 06:59 Glucose 94 mg/dL (74-106) 03/06/18 06:59 Magnesium 2.3 mg/dL (1.8-2.4) 03/03/18 18:50 Total Bilirubin 0.3 mg/dL (0.2-1.0) 03/06/18 06:59 AST 13 U/L (15-37) L 03/06/18 06:59 ALT 17 U/L (12-78) 03/06/18 06:59 Alkaline Phosphatase 78 U/L (45-117) 03/06/18 06:59 Troponin I 0.11 ng/mL (0.0-0.045) H 03/04/18 04:20 Triglycerides 93 mg/dL (<150) 03/05/18 04:20 Cholesterol 105 mg/dL (<200) 03/05/18 04:20 HDL Cholesterol 32 mg/dL (40-60) L 03/05/18 04:20 Cholesterol/HDL Ratio 3.28 03/05/18 04:20 Home Medications: Allopurinol [Zyloprim] 300 mg PO DAILY 03/04/18 Bisacodyl [Dulcolax*] 5 mg PO DAILY PRN 03/04/18 Cholecalciferol (Vitamin D3) [Vitamin D3] 1 cap PO DAILY 03/04/18 Cyanocobalamin [Vitamin B-12*] 1 tab PO DAILY 03/04/18 Furosemide [Lasix] 80 mg PO BID 03/04/18 Glimepiride 1 tab PO DAILY 03/04/18 Hydralazine [Apresoline] 50 mg PO TID 03/04/18 Losartan Potassium [Cozaar] 100 mg PO DAILY 03/04/18 Multivit-Min/FA/Lycopen/Lutein [Centrum Silver Men Tablet] 1 tab PO DAILY Na Bicarb Tab [Sodium Bicarb 325 MG] 325 mg PO BID 03/04/18 Rivaroxaban [Xarelto] 15 mg PO DAILY 03/04/18 Simvastatin 40 mg PO BEDTIME 03/04/18 Sotalol HCl [Betapace] 80 mg PO DAILY 03/04/18 Spironolactone [Aldactone] 50 mg PO DAILY 03/04/18 Terazosin HCl 2 mg PO BID 03/04/18 Diet: ADA Followup: Alycia Hoffman NP [Primary Care Provider] - 1-2 Weeks Henrique Maloney MD [ACTIVE - CAN ADMIT] - 1-2 Weeks Time spent managing pt's care (in minutes): 25
[2018-03-06 15:25] VITALS: BP 147/71; TEMP 97.6
--- NOTE | 2018-03-07 08:09 | ECHO ---
HEIGHT: 5 ft 11 in WEIGHT: 245 lb 0 oz DATE OF STUDY: 03/04/[address]: Morro Diaz MD 2-DIMENSIONAL: YES M.MODE: YES DOPPLER: YES COLOR FLOW: YES TDS: NO PORTABLE: NO DEFINITY: NO BUBBLE STUDY: NO DIAGNOSIS: SYNCOPE CARDIAC HISTORY: CATHERIZATION: NO SURGERY: NO PROSTHETIC VALVE: NO PACEMAKER: NO MEASUREMENTS (cm) DIASTOLIC (NORMALS) SYSTOLIC (NORMALS) IVSd 1.1 (0.6-1.2) LA Diam 4.1 (1.9-4.0) LVEF 65% LVIDd 4.8 (3.5-5.7) LVIDs 3.0 (2.0-3.5) %FS 36% LVPWd 1.3 (0.6-1.2) Ao Diam 3.0 (2.0-3.7) 2 DIMENSIONAL ASSESSMENT: RIGHT ATRIUM: NORMAL LEFT ATRIUM: DILATED RIGHT VENTRICLE: NORMAL LEFT VENTRICLE: MILD LEFT VENTRICULAR HYPERTROPHY TRICUSPID VALVE: NORMAL MITRAL VALVE: NORMAL PULMONIC VALVE: NORMAL AORTIC VALVE: NORMAL PERICARDIAL EFFUSION: NONE AORTIC ROOT: NORMAL LEFT VENTRICULAR WALL MOTION: NORMAL DOPPLER/COLOR FLOW: MILD TRICUSPID REGURGITATION. COMMENTS: MILD LEFT VENTRICULAR HYPERTROPHY. NORMAL LEFT VENTRICULAR EJECTION FRACTION AND FUNCTION. MILD LEFT ATRIAL ENLARGEMENT. MILD TRICUSPID REGURGITATION. NORMAL RIGHT VENTRICULAR SYSTOLIC PRESSURE. TECHNOLOGIST: Tamiko WALKER
== END 2018-03-06 13:21 | disposition home or self-care (01) ==
LOC: ER 17:07 → ERHOLD 21:17 → 2ND 23:19
PROVIDERS: ADMIT Internal Medicine; ATTEND Internal Medicine
DX: I12.9 Hypertensive chronic kidney disease with stage 1 through stage 4 chronic kidney disease, or unspecified chronic kidney disease (principal); E11.22 Type 2 diabetes mellitus with diabetic chronic kidney disease; N18.3 Chronic kidney disease, stage 3 (moderate); N17.9 Acute kidney failure, unspecified; I48.91 Unspecified atrial fibrillation; I25.10 Atherosclerotic heart disease of native coronary artery without angina pectoris; N40.0 Benign prostatic hyperplasia without lower urinary tract symptoms; I48.2 Chronic atrial fibrillation
CPT/HCPCS: 36415 ×3; 70450; 71045 ×2; 76770; 80048 ×2; 80053 ×2; 80061; 80076; 81003; 82962 ×10; 83036; 83540; 83735; 83880; 84443; 84466; 84484 ×3; 85025 ×4; 85610; 93005 ×2; 93306; 99285; G0378 ×2; J7030

== ENCOUNTER 2021-12-17 20:59 | Inpatient (IN) | payer OTHER ==
--- OUTSIDE RECORDS SUMMARY | 2021-12-17 21:03 | XMS REPORT | Continuity of Care Document ---
:1950 Author Organization [facility] t Address [address] [place] [address] [address]. [address] [place] [address] Care Team Providers Name Role Phone Crissy Villalpando Attending Clinician Unavailable Alycia Hoffman Attending Clinician Unavailable Payers Payer Name Policy Type Policy Number Effective Date Expiration Date S ource [employer] MEDICARE 53 [id number] 2021 [facility] 00:00:00 - [facility] AETNA 53 [id number] 2002 [facility] 00:00:[address] [facility] MEDICARE MB [id number] 2014 [facility] NOVITAS 00:00:00 - [facility] Problems Condition Condition Condition Status Onset Resolution Last Treating Co mments Source Name Details Category Date Date Treatment Clinician Date [id number] Hypertensi Problem Com mon ve heart Spirit disease - [facility] without [facility] [id number] Chronic Problem Commo n gout [facility] involving - [facility] toe [facility] Medical unspecifie Center d cause, unspecifie d laterality [id number] Benign Problem Commo n 101 prostatic Spirit hyperplasi - [facility] a with [facility] urinary Medical tract Center symptoms Hypertensi HTN Problem Commo n on (hypertens Spirit ion) - [facility] Vitamin Vitamin Problem Common B12 B12 Spirit deficiency deficiency - [facility] [id number] Encounter Problem Com mon for Spirit immunizati - [facility] on [facility] 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 Social History Social Habit Start Date Stop Date Quantity Comments Source History of Tobacco Use Co mmon [facility] Sex Assigned At Com mon [facility] Smoking Status Start Date Stop Date Source Never Smoker [facility] Medications Ordered Filled Start Stop Current Ordering Indication Dosage Frequency Signature Comments Components Source Medication Medication Date Date Medication? Clinician (SIG) Name Name Bettina Dunbar No QD Lantus SoloStar SoloStar 9-23 SoloStar 100 UNIT/ML 100 UNIT/ML 00:00: 100 00 UNIT/ML Lantus Lantus No QD Lantus SoloStar SoloStar 9-23 SoloStar 100 UNIT/ML 100 UNIT/ML 00:00: 100 00 UNIT/ML Jardiance Jardiance 0 No 1{table QD Jardiance 25 MG 25 MG 5-11 t} 25 MG 00:00: 00 Jardiance Jardiance 0 No 1{table QD Jardiance 25 MG 25 MG 5-11 t} 25 MG 00:00: 00 Jardiance Jardiance 0 No 1{table QD Jardiance 25 MG 25 MG 5-11 t} 25 MG 00:00: 00 Jardiance Jardiance 0 No 1{table QD Jardiance 25 MG 25 MG 5-11 t} 25 MG 00:00: 00 Jardiance Jardiance 0 No 1{table QD Jardiance 25 MG 25 MG 5-11 t} 25 MG 00:00: 00 Jardiance Jardiance 0 2022- No 1{table QD Jardiance 25 MG 25 MG 5-11 08-09 t} 25 MG 00:00: 00:00 00 :00 Jardiance Jardiance 2021-0 2022- No 1{table QD Jardiance 10 MG 10 MG -29 06-27 t} 10 MG 00:00: 00:00 00 :00 Fluticasone Fluticasone 2019-0 Yes Alycia 1 spray in Common Propionate Propionate 4-19 Spink each Sp valentino 00:00: nostril - [facility] 00 [facility] Fluticasone Fluticasone 2019-0 No 1{spray QD Propionate Propionate 4-19 _in_eac 50 MCG/ACT 50 MCG/ACT 00:00: h_nostr 00 il} Fluticasone Fluticasone 2019-0 No 1{spray QD Fluticason Propionate Propionate 4-19 _in_eac e 50 MCG/ACT 50 MCG/ACT 00:00: h_nostr Propionate 00 il} 50 MCG/ACT Fluticasone Fluticasone 2018-0 No 1{spray QD Fluticason Propionate Propionate 4-19 _in_eac e 50 MCG/ACT 50 MCG/ACT 00:00: h_nostr Propionate 00 il} 50 MCG/ACT Fluticasone Fluticasone 2019-0 No 1{spray QD Fluticason Propionate Propionate 4-19 _in_eac e 50 MCG/ACT 50 MCG/ACT 00:00: h_nostr Propionate 00 il} 50 MCG/ACT Vitamin B12 Vitamin B12 2018-0 No 1000ug Common (Cyanocobal (Cyanocobal 6-19 S pirit sesay) sesay) 00:00: - [facility]I 00 [facility] Vitamin B12 Vitamin B12 2018-0 No 1000ug Common (Cyanocobal (Cyanocobal 6-19 S pirit sesay) sesay) 00:00: - [facility] 00 [facility] Vitamin B12 Vitamin B12 2018-0 No 1000ug Common (Cyanocobal (Cyanocobal 6-19 S pirit sesay) sesay) 00:00: - [facility] 00 [facility] Vitamin B12 Vitamin B12 2018-0 No 1000ug Common (Cyanocobal (Cyanocobal 6-19 S pirit sesay) sesay) 00:00: - [facility] 00 [facility] Vitamin B12 Vitamin B12 2018-0 No 1000ug Common (Cyanocobal (Cyanocobal 6-19 S pirit sesay) sesay) 00:00: - [facility] 00 [facility] Vitamin B12 Vitamin B12 2018-0 No 1000ug Common (Cyanocobal (Cyanocobal 6-19 S pirit sesay) sesay) 00:00: - [facility] 00 [facility] Vitamin B12 Vitamin B12 2018-0 No 1000ug Common (Cyanocobal (Cyanocobal 6-19 S pirit sesay) sesay) 00:00: - [facility] 00 [facility] Vitamin B12 Vitamin B12 2018-0 No 1000ug Common (Cyanocobal (Cyanocobal 6-19 S pirit sesay) sesay) 00:00: - [facility] 00 [facility] Vitamin B12 Vitamin B12 2018-0 No 1000ug Common (Cyanocobal (Cyanocobal 6-19 S pirit sesay) sesay) 00:00: - [facility] 00 [facility] Vitamin B12 Vitamin B12 2018-0 No 1000ug Common (Cyanocobal (Cyanocobal 6-19 S pirit sesay) sesay) 00:00: - [facility] 00 [facility] Vitamin B12 Vitamin B12 2018-0 No 1000ug Common (Cyanocobal (Cyanocobal 6-19 S pirit sesay) sesay) 00:00: - [facility] 00 [facility] Vitamin B12 Vitamin B12 2018-0 No 1000ug Common (Cyanocobal (Cyanocobal 6-19 S pirit sesay) sesay) 00:00: - [facility] 00 [facility] HydrALAZINE HydrALAZINE Yes Alycia not Common HCl HCl Spink defined [facility] Simvastatin Simvastatin Yes Alycia not Common Spink defined [facility] Xarelto Xarelto Yes Alycia not Common Spink defined [facility] Allopurinol Allopurinol Yes Alycia not Common Spink defined [facility] Sodium Sodium Yes Alycia not Common Bicarbonate Bicarbonate Spink defined [facility] Sotalol HCl Sotalol HCl Yes Alycia not Common Spink defined [facility] Vitamin D-3 Vitamin D-3 Yes Alycia as Common Spink directed [facility] Ferrous Ferrous Yes Alycia 1 tablet Comm on Sulfate Sulfate Spink [facility] Vitamin B Vitamin B Yes Alycia 2 tabs Co mmon 12 12 Spink [facility] Dulcolax Dulcolax Yes Alycia 1 tablet Co mmon Spink as needed [facility] Furosemide Furosemide Yes Alycia 1/2 tab Common Spink BID [facility] Spironolact Spironolact Yes Alycia 1/2 tab Common one one Spink [facility] Glimepiride Glimepiride Yes Alycia 1 tablet Common Spink with Spirit breakfast - [facility] or the [facility] Pradaxa 75 Pradaxa 75 No BID MG MG Ferrous Ferrous No 1{table QD Sulfate 325 Sulfate 325 t} (65 Fe) MG (65 Fe) MG Sodium Sodium No BID Bicarbonate Bicarbonate 325 MG 325 MG Vitamin B Vitamin B No QD 12 250 MCG 12 250 MCG Simvastatin Simvastatin No 40 MG 40 MG Dulcolax 5 Dulcolax 5 No 1{table QD MG MG t_as_ne eded} hydrALAZINE hydrALAZINE No HCl 50 MG HCl 50 MG Furosemide Furosemide No BID 80 MG 80 MG Vitamin D-3 Vitamin D-3 No 5000 UNIT 5000 UNIT Allopurinol Allopurinol No 300 MG 300 MG Spironolact Spironolact No QD one 50 MG one 50 MG Terazosin Terazosin No HCl 2 MG HCl 2 MG Glimepiride Glimepiride No 1{table BID 4 MG 4 MG t_with_ food} Sotalol HCl Sotalol HCl No 80 MG 80 MG Sotalol HCl Sotalol HCl No 1{table BID Sotalol 80 MG 80 MG t} HCl 80 MG Simvastatin Simvastatin No Simvastati 40 MG 40 MG n 40 MG Terazosin Terazosin No Terazosin HCl 2 MG HCl 2 MG HCl 2 MG Pradaxa 75 Pradaxa 75 No BID Pradaxa 75 MG MG MG Vitamin D-3 Vitamin D-3 No Vitamin 5000 UNIT 5000 UNIT D-3 5000 UNIT Glimepiride Glimepiride No Glimepirid 4 MG 4 MG e 4 MG hydrALAZINE hydrALAZINE No hydrALAZIN HCl 50 MG HCl 50 MG E HCl 50 MG Spironolact Spironolact No QD Spironolac one 50 MG one 50 MG tone 50 MG Ferrous Ferrous No 1{table QD Ferrous Sulfate 325 Sulfate 325 t} Sulfate (65 Fe) MG (65 Fe) MG 325 (65 Fe) MG Allopurinol Allopurinol No Allopurino 300 MG 300 MG l 300 MG Sodium Sodium No BID Sodium Bicarbonate Bicarbonate Bicarbonat 325 MG 325 MG e 325 MG Dulcolax 5 Dulcolax 5 No 1{table QD Dulcolax 5 MG MG t_as_ne MG eded} Vitamin B Vitamin B No QD Vitamin B 12 250 MCG 12 250 MCG 12 250 MCG Furosemide Furosemide No 1{table BID Furosemide 40 MG 40 MG t} 40 MG Dulcolax 5 Dulcolax 5 No 1{table QD Dulcolax 5 MG MG t_as_ne MG eded} hydrALAZINE hydrALAZINE No hydrALAZIN HCl 50 MG HCl 50 MG E HCl 50 MG Sotalol HCl Sotalol HCl No 1{table BID Sotalol 80 MG 80 MG t} HCl 80 MG Vitamin B Vitamin B No QD Vitamin B 12 250 MCG 12 250 MCG 12 250 MCG Simvastatin Simvastatin No Simvastati 40 MG 40 MG n 40 MG Sodium Sodium No BID Sodium Bicarbonate Bicarbonate Bicarbonat 325 MG 325 MG e 325 MG Spironolact Spironolact No QD Spironolac one 50 MG one 50 MG tone 50 MG Furosemide Furosemide No 1{table BID Furosemide 40 MG 40 MG t} 40 MG Pradaxa 75 Pradaxa 75 No BID Pradaxa 75 MG MG MG Ferrous Ferrous No 1{table QD Ferrous Sulfate 325 Sulfate 325 t} Sulfate (65 Fe) MG (65 Fe) MG 325 (65 Fe) MG Allopurinol Allopurinol No Allopurino 300 MG 300 MG l 300 MG Vitamin D-3 Vitamin D-3 No Vitamin 5000 UNIT 5000 UNIT D-3 5000 UNIT Glimepiride Glimepiride No Glimepirid 4 MG 4 MG e 4 MG Terazosin Terazosin No Terazosin HCl 2 MG HCl 2 MG HCl 2 MG Vitamin D-3 Vitamin D-3 No Vitamin 5000 UNIT 5000 UNIT D-3 5000 UNIT Allopurinol Allopurinol No 1{table QD Allopurino 300 MG 300 MG t} l 300 MG Sotalol HCl Sotalol HCl No 1{table BID Sotalol 80 MG 80 MG t} HCl 80 MG Pradaxa 75 Pradaxa 75 No BID Pradaxa 75 MG MG MG Terazosin Terazosin No Terazosin HCl 2 MG HCl 2 MG HCl 2 MG Ferrous Ferrous No 1{table QD Ferrous Sulfate 325 Sulfate 325 t} Sulfate (65 Fe) MG (65 Fe) MG 325 (65 Fe) MG Glimepiride Glimepiride No Glimepirid 4 MG 4 MG e 4 MG Dulcolax 5 Dulcolax 5 No 1{table QD Dulcolax 5 MG MG t_as_ne MG eded} Vitamin B Vitamin B No QD Vitamin B 12 250 MCG 12 250 MCG 12 250 MCG hydrALAZINE hydrALAZINE No 1{table BID hydrALAZIN HCl 50 MG HCl 50 MG t_with_ E HCl 50 food} MG Furosemide Furosemide No 1{table BID Furosemide 40 MG 40 MG t} 40 MG Simvastatin Simvastatin No 1{table QD Simvastati 40 MG 40 MG t_in_th n 40 MG e_eveni ng} Spironolact Spironolact No QD Spironolac one 50 MG one 50 MG tone 50 MG Sodium Sodium No BID Sodium Bicarbonate Bicarbonate Bicarbonat 325 MG 325 MG e 325 MG Allopurinol Allopurinol No 1{table QD Allopurino 300 MG 300 MG t} l 300 MG Glimepiride Glimepiride No Glimepirid 4 MG 4 MG e 4 MG Furosemide Furosemide No 1{table BID Furosemide 40 MG 40 MG t} 40 MG Vitamin B Vitamin B No QD Vitamin B 12 250 MCG 12 250 MCG 12 250 MCG Sotalol HCl Sotalol HCl No 1{table BID Sotalol 80 MG 80 MG t} HCl 80 MG Sodium Sodium No BID Sodium Bicarbonate Bicarbonate Bicarbonat 325 MG 325 MG e 325 MG Pradaxa 75 Pradaxa 75 No BID Pradaxa 75 MG MG MG Terazosin Terazosin No Terazosin HCl 2 MG HCl 2 MG HCl 2 MG hydrALAZINE hydrALAZINE No 1{table BID hydrALAZIN HCl 50 MG HCl 50 MG t_with_ E HCl 50 food} MG Spironolact Spironolact No QD Spironolac one 50 MG one 50 MG tone 50 MG Ferrous Ferrous No 1{table QD Ferrous Sulfate 325 Sulfate 325 t} Sulfate (65 Fe) MG (65 Fe) MG 325 (65 Fe) MG Simvastatin Simvastatin No 1{table QD Simvastati 40 MG 40 MG t_in_th n 40 MG e_eveni ng} Vitamin D-3 Vitamin D-3 No Vitamin 5000 UNIT 5000 UNIT D-3 5000 UNIT Allopurinol Allopurinol No 1{table QD Allopurino 300 MG 300 MG t} l 300 MG Glimepiride Glimepiride No Glimepirid 4 MG 4 MG e 4 MG Furosemide Furosemide No 1{table BID Furosemide 40 MG 40 MG t} 40 MG Vitamin B Vitamin B No QD Vitamin B 12 250 MCG 12 250 MCG 12 250 MCG Sotalol HCl Sotalol HCl No 1{table BID Sotalol 80 MG 80 MG t} HCl 80 MG Sodium Sodium No BID Sodium Bicarbonate Bicarbonate Bicarbonat 325 MG 325 MG e 325 MG Pradaxa 75 Pradaxa 75 No BID Pradaxa 75 MG MG MG Terazosin Terazosin No Terazosin HCl 2 MG HCl 2 MG HCl 2 MG hydrALAZINE hydrALAZINE No 1{table BID hydrALAZIN HCl 50 MG HCl 50 MG t_with_ E HCl 50 food} MG Spironolact Spironolact No QD Spironolac one 50 MG one 50 MG tone 50 MG Ferrous Ferrous No 1{table QD Ferrous Sulfate 325 Sulfate 325 t} Sulfate (65 Fe) MG (65 Fe) MG 325 (65 Fe) MG Simvastatin Simvastatin No 1{table QD Simvastati 40 MG 40 MG t_in_th n 40 MG e_eveni ng} Vitamin D-3 Vitamin D-3 No Vitamin 5000 UNIT 5000 UNIT D-3 5000 UNIT Allopurinol Allopurinol No 1{table QD Allopurino 300 MG 300 MG t} l 300 MG Pradaxa 75 Pradaxa 75 No BID Pradaxa 75 MG MG MG Furosemide Furosemide No 1{table BID Furosemide 40 MG 40 MG t} 40 MG Vitamin B Vitamin B No QD Vitamin B 12 250 MCG 12 250 MCG 12 250 MCG Sotalol HCl Sotalol HCl No 1{table BID Sotalol 80 MG 80 MG t} HCl 80 MG Sodium Sodium No BID Sodium Bicarbonate Bicarbonate Bicarbonat 325 MG 325 MG e 325 MG Simvastatin Simvastatin No 1{table QD Simvastati 40 MG 40 MG t_in_th n 40 MG e_eveni ng} Terazosin Terazosin No Terazosin HCl 2 MG HCl 2 MG HCl 2 MG Glimepiride Glimepiride No Glimepirid 4 MG 4 MG e 4 MG Spironolact Spironolact No QD Spironolac one 50 MG one 50 MG tone 50 MG Ferrous Ferrous No 1{table QD Ferrous Sulfate 325 Sulfate 325 t} Sulfate (65 Fe) MG (65 Fe) MG 325 (65 Fe) MG hydrALAZINE hydrALAZINE No 1{table BID hydrALAZIN HCl 50 MG HCl 50 MG t_with_ E HCl 50 food} MG Vitamin D-3 Vitamin D-3 No Vitamin 5000 UNIT 5000 UNIT D-3 5000 UNIT Allopurinol Allopurinol No 1{table QD Allopurino 300 MG 300 MG t} l 300 MG Pradaxa 75 Pradaxa 75 No BID Pradaxa 75 MG MG MG Furosemide Furosemide No 1{table BID Furosemide 40 MG 40 MG t} 40 MG Vitamin B Vitamin B No QD Vitamin B 12 250 MCG 12 250 MCG 12 250 MCG Sotalol HCl Sotalol HCl No 1{table BID Sotalol 80 MG 80 MG t} HCl 80 MG Sodium Sodium No BID Sodium Bicarbonate Bicarbonate Bicarbonat 325 MG 325 MG e 325 MG Simvastatin Simvastatin No 1{table QD Simvastati 40 MG 40 MG t_in_ n 40 MG e_eveni ng} Terazosin Terazosin No Terazosin HCl 2 MG HCl 2 MG HCl 2 MG Glimepiride Glimepiride No Glimepirid 4 MG 4 MG e 4 MG Spironolact Spironolact No QD Spironolac one 50 MG one 50 MG tone 50 MG Ferrous Ferrous No 1{table QD Ferrous Sulfate 325 Sulfate 325 t} Sulfate (65 Fe) MG (65 Fe) MG 325 (65 Fe) MG hydrALAZINE hydrALAZINE No 1{table BID hydrALAZIN HCl 50 MG HCl 50 MG t_with_ E HCl 50 food} MG Vitamin D-3 Vitamin D-3 No Vitamin 5000 UNIT 5000 UNIT D-3 5000 UNIT Allopurinol Allopurinol No 1{table QD Allopurino 300 MG 300 MG t} l 300 MG Pradaxa 75 Pradaxa 75 No BID Pradaxa 75 MG MG MG Furosemide Furosemide No 1{table BID Furosemide 40 MG 40 MG t} 40 MG Vitamin B Vitamin B No QD Vitamin B 12 250 MCG 12 250 MCG 12 250 MCG Sotalol HCl Sotalol HCl No 1{table BID Sotalol 80 MG 80 MG t} HCl 80 MG Sodium Sodium No BID Sodium Bicarbonate Bicarbonate Bicarbonat 325 MG 325 MG e 325 MG Simvastatin Simvastatin No 1{table QD Simvastati 40 MG 40 MG t_in_th n 40 MG e_eveni ng} Terazosin Terazosin No Terazosin HCl 2 MG HCl 2 MG HCl 2 MG Glimepiride Glimepiride No Glimepirid 4 MG 4 MG e 4 MG Spironolact Spironolact No QD Spironolac one 50 MG one 50 MG tone 50 MG Ferrous Ferrous No 1{table QD Ferrous Sulfate 325 Sulfate 325 t} Sulfate (65 Fe) MG (65 Fe) MG 325 (65 Fe) MG hydrALAZINE hydrALAZINE No 1{table BID hydrALAZIN HCl 50 MG HCl 50 MG t_with_ E HCl 50 food} MG Vitamin D-3 Vitamin D-3 No Vitamin 5000 UNIT 5000 UNIT D-3 5000 UNIT Sotalol HCl Sotalol HCl No 1{table BID Sotalol 80 MG 80 MG t} HCl 80 MG Ferrous Ferrous No 1{table QD Ferrous Sulfate 325 Sulfate 325 t} Sulfate (65 Fe) MG (65 Fe) MG 325 (65 Fe) MG Terazosin Terazosin No Terazosin HCl 2 MG HCl 2 MG HCl 2 MG Spironolact Spironolact No QD Spironolac one 50 MG one 50 MG tone 50 MG Vitamin B Vitamin B No QD Vitamin B 12 250 MCG 12 250 MCG 12 250 MCG Furosemide Furosemide No 1{table BID Furosemide 40 MG 40 MG t} 40 MG Allopurinol Allopurinol No 1{table QD Allopurino 300 MG 300 MG t} l 300 MG Pradaxa 75 Pradaxa 75 No BID Pradaxa 75 MG MG MG Vitamin D-3 Vitamin D-3 No Vitamin 5000 UNIT 5000 UNIT D-3 5000 UNIT hydrALAZINE hydrALAZINE No 1{table BID hydrALAZIN HCl 50 MG HCl 50 MG t_with_ E HCl 50 food} MG Simvastatin Simvastatin No 1{table QD Simvastati 40 MG 40 MG t_in_th n 40 MG e_eveni ng} Sodium Sodium No BID Sodium Bicarbonate Bicarbonate Bicarbonat 325 MG 325 MG e 325 MG Allopurinol Allopurinol No 1{table QD Allopurino 300 MG 300 MG t} l 300 MG Simvastatin Simvastatin No 1{table QD Simvastati 40 MG 40 MG t_in_th n 40 MG e_eveni ng} Sotalol HCl Sotalol HCl No 1{table BID Sotalol 80 MG 80 MG t} HCl 80 MG Pradaxa 75 Pradaxa 75 No BID Pradaxa 75 MG MG MG Spironolact Spironolact No QD Spironolac one 50 MG one 50 MG tone 50 MG Ferrous Ferrous No 1{table QD Ferrous Sulfate 325 Sulfate 325 t} Sulfate (65 Fe) MG (65 Fe) MG 325 (65 Fe) MG Furosemide Furosemide No 1{table BID Furosemide 40 MG 40 MG t} 40 MG Vitamin D-3 Vitamin D-3 No Vitamin 5000 UNIT 5000 UNIT D-3 5000 UNIT Sodium Sodium No BID Sodium Bicarbonate Bicarbonate Bicarbonat 325 MG 325 MG e 325 MG Terazosin Terazosin No Terazosin HCl 2 MG HCl 2 MG HCl 2 MG hydrALAZINE hydrALAZINE No 1{table BID hydrALAZIN HCl 50 MG HCl 50 MG t_with_ E HCl 50 food} MG Vitamin B Vitamin B No QD Vitamin B 12 250 MCG 12 250 MCG 12 250 MCG Sotalol HCl Sotalol HCl No 1{table BID Sotalol 80 MG 80 MG t} HCl 80 MG Ferrous Ferrous No 1{table QD Ferrous Sulfate 325 Sulfate 325 t} Sulfate (65 Fe) MG (65 Fe) MG 325 (65 Fe) MG Terazosin Terazosin No Terazosin HCl 2 MG HCl 2 MG HCl 2 MG Spironolact Spironolact No QD Spironolac one 50 MG one 50 MG tone 50 MG Vitamin B Vitamin B No QD Vitamin B 12 250 MCG 12 250 MCG 12 250 MCG Furosemide Furosemide No 1{table BID Furosemide 40 MG 40 MG t} 40 MG Allopurinol Allopurinol No 1{table QD Allopurino 300 MG 300 MG t} l 300 MG Pradaxa 75 Pradaxa 75 No BID Pradaxa 75 MG MG MG Vitamin D-3 Vitamin D-3 No Vitamin 5000 UNIT 5000 UNIT D-3 5000 UNIT hydrALAZINE hydrALAZINE No 1{table BID hydrALAZIN HCl 50 MG HCl 50 MG t_with_ E HCl 50 food} MG Simvastatin Simvastatin No 1{table QD Simvastati 40 MG 40 MG t_in_th n 40 MG e_eveni ng} Sodium Sodium No BID Sodium Bicarbonate Bicarbonate Bicarbonat 325 MG 325 MG e 325 MG Allopurinol Allopurinol No 1{table QD Allopurino 300 MG 300 MG t} l 300 MG Simvastatin Simvastatin No 1{table QD Simvastati 40 MG 40 MG t_in_th n 40 MG e_eveni ng} Sotalol HCl Sotalol HCl No 1{table BID Sotalol 80 MG 80 MG t} HCl 80 MG Pradaxa 75 Pradaxa 75 No BID Pradaxa 75 MG MG MG Spironolact Spironolact No QD Spironolac one 50 MG one 50 MG tone 50 MG Ferrous Ferrous No 1{table QD Ferrous Sulfate 325 Sulfate 325 t} Sulfate (65 Fe) MG (65 Fe) MG 325 (65 Fe) MG Furosemide Furosemide No 1{table BID Furosemide 40 MG 40 MG t} 40 MG Vitamin D-3 Vitamin D-3 No Vitamin 5000 UNIT 5000 UNIT D-3 5000 UNIT Sodium Sodium No BID Sodium Bicarbonate Bicarbonate Bicarbonat 325 MG 325 MG e 325 MG Terazosin Terazosin No Terazosin HCl 2 MG HCl 2 MG HCl 2 MG hydrALAZINE hydrALAZINE No 1{table BID hydrALAZIN HCl 50 MG HCl 50 MG t_with_ E HCl 50 food} MG Vitamin B Vitamin B No QD Vitamin B 12 250 MCG 12 250 MCG 12 250 MCG Immunizations Ordered Immunization Filled Immunization Date Status Commen ts Source Name Name Moderna COVID-19 Moderna COVID-19 2020-05-01 Completed [facility] Vacc[facility] 11:51:00 - [facility] Moderna COVID-19 Moderna COVID-19 2020-05-01 Completed [facility] Vaccine Vaccine 11:51:00 - [facility] Moderna COVID-19 Moderna COVID-19 2020-05-01 Completed [facility] Vaccine Vaccine 11:51:00 - [facility] Moderna COVID-19 Moderna COVID-19 2020-05-01 Completed [facility] Vaccine Vaccine 11:51:00 - [facility] Moderna COVID-19 Moderna COVID-19 2020-05-01 Completed [facility] Vaccine Vaccine 11:51:00 - [facility] Moderna COVID-19 Moderna COVID-19 2020-05-01 Completed [facility] Vaccine Vaccine 11:51:00 - [facility] Moderna COVID-19 Moderna COVID-19 2020-05-01 Completed [facility] Vaccine Vaccine 11:51:00 - [facility] Moderna COVID-19 Moderna COVID-19 2020-05-01 Completed [facility] Vaccine Vaccine 11:51:00 - [facility] Moderna COVID-19 Moderna COVID-19 2020-05-01 Completed [facility] Vaccine Vaccine 11:51:00 - [facility] Moderna COVID-19 Moderna COVID-19 2020-05-01 Completed [facility] Vaccine Vaccine 11:51:00 - [facility] Moderna COVID-19 Moderna COVID-19 2020-05-01 Completed [facility] Vaccine Vaccine 11:51:00 - [facility] Moderna COVID-19 Moderna COVID-19 2020-05-01 Completed [facility] Vaccine Vaccine 11:51:00 - [facility] Moderna COVID-19 Moderna COVID-19 2020-05-01 Completed [facility] Vaccine Vaccine 11:51:00 - [facility] Moderna COVID-19 Moderna COVID-19 2020-04-02 Completed [facility] Vaccine Vaccine 11:50:00 - [facility] Moderna COVID-19 Moderna COVID-19 2020-04-02 Completed [facility] Vaccine Vaccine 11:50:00 - [facility] Moderna COVID-19 Moderna COVID-19 2020-04-02 Completed [facility] Vaccine Vaccine 11:50:00 - [facility] Moderna COVID-19 Moderna COVID-19 2020-04-02 Completed [facility] Vaccine Vaccine 11:50:00 - [facility] Moderna COVID-19 Moderna COVID-19 2020-04-02 Completed [facility] Vaccine Vaccine 11:50:00 - [facility] Moderna COVID-19 Moderna COVID-19 2020-04-02 Completed [facility] Vaccine Vaccine 11:50:00 - [facility] Moderna COVID-19 Moderna COVID-19 2020-04-02 Completed [facility] Vaccine Vaccine 11:50:00 - [facility] Moderna COVID-19 Moderna COVID-19 2020-04-02 Completed [facility] Vaccine Vaccine 11:50:00 - [facility] Moderna COVID-19 Moderna COVID-19 2020-04-02 Completed [facility] Vaccine Vaccine 11:50:00 - [facility] Moderna COVID-19 Moderna COVID-19 2020-04-02 Completed [facility] Vaccine Vaccine 11:50:00 - [facility] Moderna COVID-19 Moderna COVID-19 2020-04-02 Completed [facility] Vaccine Vaccine 11:50:00 - [facility] Moderna COVID-19 Moderna COVID-19 2020-04-02 Completed [facility] Vaccine Vaccine 11:50:00 - [facility] Moderna COVID-19 Moderna COVID-19 2020-04-02 Completed [facility] Vaccine Vaccine 11:50:00 - [facility] FLUZONE HIGH DOSE FLUZONE HIGH DOSE 2019-12-05 Completed [facility] OVER 65 OVER 65 11:07:00 - [facility] FLUZONE HIGH DOSE FLUZONE HIGH DOSE 2019-12-05 Completed [facility] OVER 65 OVER 65 11:07:00 - [facility] FLUZONE HIGH DOSE FLUZONE HIGH DOSE 2019-12-05 Completed [facility] OVER 65 OVER 65 11:07:00 [facility] FLUZONE HIGH DOSE FLUZONE HIGH DOSE 2019-12-05 Completed [facility] OVER 65 OVER 65 11:07:00 - [facility] FLUZONE HIGH DOSE FLUZONE HIGH DOSE 2019-12-05 Completed [facility] OVER 65 OVER 65 11:07:00 - [facility] FLUZONE HIGH DOSE FLUZONE HIGH DOSE 2019-12-05 Completed [facility] OVER 65 OVER 65 11:07:00 - [facility] FLUZONE HIGH DOSE FLUZONE HIGH DOSE 2019-12-05 Completed [facility] OVER 65 OVER 65 11:07:00 [facility] FLUZONE HIGH DOSE FLUZONE HIGH DOSE 2019-12-05 Completed [facility] OVER 65 OVER 65 11:07:00 - [facility] FLUZONE HIGH DOSE FLUZONE HIGH DOSE 2019-12-05 Completed [facility] OVER 65 OVER 65 11:07:00 - [facility] FLUZONE HIGH DOSE FLUZONE HIGH DOSE 2019-12-05 Completed [facility] OVER 65 OVER 65 11:07:00 - [facility] FLUZONE HIGH DOSE FLUZONE HIGH DOSE 2019-12-05 Completed [facility] OVER 65 OVER 65 11:07:00 - [facility] FLUZONE HIGH DOSE FLUZONE HIGH DOSE 2019-12-05 Completed [facility] OVER 65 OVER 65 11:07:00 - [facility] FLUZONE HIGH DOSE FLUZONE HIGH DOSE 2019-12-05 Completed [facility] OVER 65 OVER 65 11:07:00 - [facility] Vital Signs Vital Name Observation Time Observation Value Comments Source height 2021-11-20 08:00:00 71 [in_i] [facility] weight 2021-11-20 08:00:00 250 [lb_av] [facility] temperature 2021-11-20 08:00:00 98.6 [degF] [facility] bmi 2021-11-20 08:00:00 34.86 kg/m2 [facility] height 2021-08-19 09:40:00 71 [in_i] [facility] weight 2021-08-19 09:40:00 257.6 [lb_av] [facility] temperature 2021-08-19 09:40:00 97.8 [degF] [facility] bmi 2021-08-19 09:40:00 35.92 kg/m2 [facility] oximetry 2021-08-19 09:40:00 98 % [facility] respiratory rate 2021-08-19 09:40:00 17 /min Comm on [facility] blood pressure 2021-08-19 09:40:00 128 mm[Hg] Common [facility] systolic [facility] blood pressure 2021-08-19 09:40:00 76 mm[Hg] [facility] - diastolic [facility] height 2021-07-09 15:00:00 71 [in_i] [facility] - [facility] weight 2021-07-09 15:00:00 259.8 [lb_av] Common [facility] temperature 2021-07-09 15:00:00 97.9 [degF] [facility] - [facility] bmi 2021-07-09 15:00:00 36.23 kg/m2 [facility] oximetry 2021-07-09 15:00:00 98 % [facility] respiratory rate 2021-07-09 15:00:00 16 /min Comm on [facility] blood pressure 2021-07-09 15:00:00 128 mm[Hg] Common [facility] - systolic [facility] blood pressure 2021-07-09 15:00:00 72 mm[Hg] Common [facility] - diastolic [facility] height 2021-05-27 13:00:00 71 [in_i] [facility] weight 2021-05-27 13:00:00 259.4 [lb_av] [facility] temperature 2021-05-27 13:00:00 98.1 [degF] [facility] bmi 2021-05-27 13:00:00 36.18 kg/m2 [facility] oximetry 2021-05-27 13:00:00 97 % [facility] respiratory rate 2021-05-27 13:00:00 16 /min Comm on [facility] blood pressure 2021-05-27 13:00:00 142 mm[Hg] Common [facility] - systolic [facility] blood pressure 2021-05-27 13:00:00 80 mm[Hg] Common [facility] - diastolic [facility] height 2021-04-28 15:40:00 71 [in_i] [facility] weight 2021-04-28 15:40:00 264.0 [lb_av] Common [facility] temperature 2021-04-28 15:40:00 97.9 [degF] Common [facility] bmi 2021-04-28 15:40:00 36.82 kg/m2 [facility] oximetry 2021-04-28 15:40:00 97 % [facility] respiratory rate 2021-04-28 15:40:00 18 /min Comm on [facility] blood pressure 2021-04-28 15:40:00 138 mm[Hg] Common [facility] - systolic [facility] blood pressure 2021-04-28 15:40:00 74 mm[Hg] [facility] diastolic [facility] height 2021-01-08 14:20:00 71 [in_i] [facility] weight 2021-01-08 14:20:00 269 [lb_av] [facility] temperature 2021-01-08 14:20:00 97.1 [degF] [facility] bmi 2021-01-08 14:20:00 37.51 kg/m2 [facility] oximetry 2021-01-08 14:20:00 97 % [facility] respiratory rate 2021-01-08 14:20:00 16 /min Comm on [facility] blood pressure 2021-01-08 14:20:00 124 mm[Hg] Common [facility] systolic [facility] blood pressure 2021-01-08 14:20:00 80 mm[Hg] Common [facility] diastolic [facility] Procedures This patient has no known procedures. Encounters Start End Encounter Admission Attending Care Care Encounter Source Date/Time Date/Time Type Type Clinicians Facility Department ID 2021-11-18 Outpatient GORDON Villalpando [id number] Common 07:19:00 Crissy [id number] [facility] 2021-08-15 Outpatient Villalpando, STLMLC STLMLC [id number] Common 15:22:00 [facility] 2021-07-10 Outpatient Villalpando, STLMLC STLMLC [id number] Common 08:37:01 [facility] 2021-07-07 Outpatient Villalpando, STLMLC STLMLC [id number] Common 14:02:01 [facility] 2021-05-23 Outpatient Villalpando, STLMLC STLMLC [id number] Common 09:30:01 [facility] 2021-05-15 Outpatient Villalpando, STLMLC STLMLC [id number] Common 13:36:01 [facility] 2021-04-25 Outpatient Villalpando, STLMLC STLMLC [id number] Common 11:06:01 [facility] 2021-04-11 Outpatient Spink, STLMLC STLMLC [id number] Common 08:20:00 Alycia [facility] 2021-04-04 Outpatient Spink, STLMLC STLMLC [id number] Common 13:56:00 Alycia [facility] 2021-03-26 Outpatient Spink, STLMLC STLMLC [id number] Common 14:13:45 Alycia [id number] [facility] 2021-03-26 Outpatient Spink, STLMLC STLMLC [id number] Common 14:10:24 Alycia [id number] [facility] 2021-03-26 Outpatient Spink, STLMLC STLMLC [id number] Common 14:07:08 Alycia [id number] [facility] 2021-03-26 Outpatient Spink, STLMLC STLMLC [id number] Common 12:28:12 Alycia [id number] [facility] 2021-03-26 Outpatient Spink, STLMLC STLMLC [id number] Common 11:29:17 Alycia [id number] [facility] 2021-11-21 2021-11-21 (TEL) STLMLC STLMLC [id number] Co mmon 00:00:00 00:00:00 [facility] 2021-11-20 2021-11-20 OFFICE STLMLC STLMLC [id number] Co mmon 00:00:00 00:00:00 [facility] - CHI LEVEL 4 [facility] 2021-11-14 2021-11-14 (TEL) STLMLC STLMLC [id number] Co mmon 00:00:00 00:00:00 [facility] 2021-09-11 2021-09-11 (TEL) STLMLC STLMLC [id number] Co mmon 00:00:00 00:00:00 [facility] 2021-09-11 2021-09-11 (TEL) STLMLC STLMLC [id number] Co mmon 00:00:00 00:00:00 [facility] 2021-08-27 2021-08-27 (TEL) STLMLC STLMLC [id number] Co mmon 00:00:00 00:00:00 [facility] 2021-08-19 2021-08-19 OFFICE STLMLC STLMLC [id number] Co mmon 00:00:00 00:00:00 VISIT [facility] PT LEVEL 3 - [facility] 2021-07-09 2021-07-09 OFFICE STLMLC STLMLC [id number] Co mmon 00:00:00 00:00:00 [facility] - CHI LEVEL 4 [facility] 2021-05-27 2021-05-27 OFFICE STLMLC STLMLC [id number] Co mmon 00:00:00 00:00:00 [facility] - CHI LEVEL 4 [facility] 2021-04-28 2021-04-28 OFFICE STLMLC STLMLC [id number] Co mmon 00:00:00 00:00:00 [facility] - CHI LEVEL 4 [facility] 2021-01-08 2021-01-08 OFFICE STLMLC STLMLC [id number] Co mmon 00:00:00 00:00:[address] [facility] LEVEL 4 [facility] 2020-11-13 2020-11-13 Outpatient STLMLC STLMLC [id number] Common 00:00:00 00:00:00 [facility] 2020-10-01 2020-10-01 Outpatient STLMLC STLMLC [id number] Common 00:00:00 00:00:00 [facility] 2020-07-17 2020-07-17 Outpatient STLMLC STLMLC [id number] Common 00:00:00 00:00:00 [facility] 2020-06-25 2020-06-25 Outpatient STLMLC STLMLC [id number] Common 00:00:00 00:00:00 [facility] 2020-03-27 2020-03-27 Outpatient STLMLC STLMLC [id number] Common 00:00:00 00:00:00 [facility] 2019-12-05 2019-12-05 Outpatient STLMLC STLMLC [id number] Common 00:00:00 00:00:00 [facility] 2019-09-04 2019-09-04 [facility] [id number] [facility] 08:20:00 08:20:[address] [facility] [address] [facility] 2019-03-06 2019-03-06 [facility] [id number] Common 08:00:00 08:00:[address] [facility] [address] [facility] 2018-10-03 2018-10-03 [facility] [id number] Common 10:15:00 10:15:[address] [facility] [address] [facility] 2018-08-30 2018-08-30 [facility] [id number] Common 13:00:00 13:00:[address] [facility] [address] [facility] 2018-06-17 2018-06-17 [facility] [id number] Common 09:30:00 09:30:[address] [facility] [address] [facility] 2018-02-16 2018-02-16 Outpatient Yudith [place] [id number] Common 08:30:00 08:30:00 [facility] Results Test Description Test Time Test Comments Results Result Comments Source HEMOGLOBIN A1C 2021-08-19 00:00:00 Test Item Value Reference Range Interpretation Comme nts A1C (test code = 4548-4) 8.1 HEMOGLOBIN [id number] 00:00:00 Test Item Value Reference Range Interpretation Comments A1C (test code = 4548-4) 8.8
[2021-12-17] MEDS ORDERED: NA CHLORIDE 0.9% 500 ML ONE (21:34)
[2021-12-17 22:05] LABS: Absolute Lymphocytes (CBC) 1.5 K/uL (0.7-4.9); Hematocrit 38.2 % (39.6-49.0); Lymphocytes % 11.7 % (15.3-44.8); MCV 89.7 fL (80-100); MPV 8.1 fL (7.6-11.3); RBC Red Blood Cell Count 4.26 M/uL (4.33-5.43)
[2021-12-17 22:09] LABS: Albumin 3.3 g/dL (3.4-5.0); Bilirubin Total 0.7 mg/dL (0.2-1.0); Protein, Total 8.1 g/dL (6.4-8.2)
[2021-12-17 22:19] LABS: Troponin High Sensitivity 203.7 pg/mL (<58.9)
--- NOTE | 2021-12-17 22:26 | RAD REPORT ---
EXAM DESCRIPTION: RAD - Chest Single View - 12/17/2021 10:14 pm CLINICAL HISTORY: syncope Chest pain. COMPARISON: Chest Single View dated 03/04/2018; Chest Single View dated 03/03/2018; CHEST SINGLE VIEW [place]ár[place] 05/12/2013; CHEST SINGLE VIEW dated 05/11/2013 FINDINGS: Portable technique limits examination quality. Mild pulmonary edema is suspected. The heart is moderately enlarged in size. No displaced fractures. IMPRESSION: Mild CHF.
--- NOTE | 2021-12-17 22:38 | RAD REPORT ---
EXAM DESCRIPTION: CT - Chest Abd Pelvis Wo Con - 12/17/2021 10:29 pm CLINICAL HISTORY: Chest and abdomen pain. abdominal pain, syncope COMPARISON: No comparisons TECHNIQUE: Limited noncontrast study was performed. All CT scans are performed using dose optimization technique as appropriate and may include automated exposure control or mA/KV adjustment according to patient size. FINDINGS: The lungs are clear.No pleural or pericardial effusion.No intrathoracic adenopathy. The liver, spleen, pancreas, adrenal glands and kidneys are within normal limits. Several stones in t he gallbladder. No bowel obstruction, free air, free fluid or abscess. Normal appendix. Moderate fat containing umbil ical hernia. No pathologic lymphadenopathy in the abdomen or pelvis. Moderate lumbar degenerative changes. IMPRESSION: No acute abnormality detected. Cholelithiasis.
--- NOTE | 2021-12-17 23:49 | ER ---
Nurse's Notes [facility] [place] [address] Name: Win Zheng Age: 71 yrs Sex: Male : 1950 Arrival Date: 12/17/2021 Time: 21:04 Bed 25 Private MD: Diagnosis: Congestive heart failure;Elevated troponin;Demand ischemia;Syncope Presentation: 12/17 21:22 Chief complaint: Patient states: abdominal pain since this morning. Upon arrival to ER ld1 pt was in wheelchair and had syncopal episode. Coronavirus screen: At this time, the client does not indicate any symptoms associated with coronavirus-19. Ebola Screen: No symptoms or risks identified at this time. Risk Assessment: Do you want to hurt yourself or someone else? Patient reports no desire to harm self or others. Onset of symptoms was December 17, 2021. 21:22 Method Of Arrival: Wheelchair ld1 21:22 Acuity: RHONA 3 ld1 22:47 Initial Sepsis Screen: Does the patient meet any 2 criteria? No. Patient's initial ha1 sepsis screen is negative. Does the patient have a suspected source of infection? No. Patient's initial sepsis screen is negative. Triage Assessment: 21:23 General: Appears in no apparent distress. comfortable, Behavior is calm, cooperative, ld1 appropriate for age. Pain: Complains of pain in right lower quadrant and left lower quadrant Pain does not radiate. Pain currently is 9 out of 10 on a pain scale. Quality of pain is described as throbbing. EENT: No signs and/or symptoms were reported regarding the EENT system. Neuro: Level of Consciousness is awake, alert, obeys commands, Oriented to person, place, time, situation. Cardiovascular: Capillary refill < 3 seconds Patient's skin is warm and dry. Respiratory: Airway is patent Respiratory effort is even, unlabored. GI: Abdomen is round distended. Historical: - Allergies: 21:23 No Known Allergies; ld1 - PMHx: 21:23 Atrial Fib; Diabetes - NIDDM; Hyperlipidemia; Hypertension; ld1 - Immunization history:: Adult Immunizations up to date. - Social history:: Smoking status: Patient denies any tobacco usage or history of. Patient/guardian denies using alcohol. Screenin:41 Abuse screen: Denies threats or abuse. Denies injuries from another. Nutritional ha1 screening: No deficits noted. Tuberculosis screening: No symptoms or risk factors identified. Fall Risk None identified. Assessment: 21:15 General: Appears uncomfortable, Behavior is calm, cooperative. Pain: Complains of pain ha1 in abdominal pain Pain does not radiate. Pain currently is 8 out of 10 on a pain scale. Pain began 12 hours ago. Neuro: Level of Consciousness is awake, alert, Oriented to person, place, time. Cardiovascular: Patient's skin is warm and dry. Respiratory: Airway is patent Trachea midline Respiratory effort is even, unlabored, Respiratory pattern is regular, symmetrical. GI: Abdomen is obese, Bowel sounds present X 4 quads. Abd is soft and non tender. GI: Reports abdominal pain for the past 12 hours. : No signs and/or symptoms were reported regarding the genitourinary system. 22:20 Reassessment: Patient and/or family updated on plan of care and expected duration. Pain ha1 level reassessed. Patient is alert, oriented x 3, equal unlabored respirations, skin warm/dry/pink. going to CT. 23:30 Reassessment: Patient and/or family updated on plan of care and expected duration. Pain ha1 level reassessed. Patient is alert, oriented x 3, equal unlabored respirations, skin warm/dry/pink. 12/18 00:30 Reassessment: Patient and/or family updated on plan of care and expected duration. Pain ha1 level reassessed. Patient is alert, oriented x 3, equal unlabored respirations, skin warm/dry/pink. Vital Signs: 12/17 21:15 BP 116 / 58; Pulse 71; Resp 22; Temp 99.7; Pulse Ox 95% on R/A; Weight 113.4 kg; Height ha1 5 ft. 11 in. (180.34 cm); 21:22 Temp 99.7(O); ld1 22:48 BP 131 / 94; Pulse 69; Resp 20; Pulse Ox 95% on R/A; ha1 12/18 00:30 BP 106 / 46; Pulse 70; Resp 20 S; Pulse Ox 95% on R/A; ha1 12/17 21:15 Body Mass Index 34.87 (113.40 kg, 180.34 cm) 1 ED Course: 12/17 21:04 Patient arrived in ED. bp1 21:20 Brandyn, Jami, MD is Attending Physician. sd2 21:23 Triage completed. ld1 21:23 Arm band placed on right wrist. ld1 21:30 Laurie Nava, RN is Primary Nurse. ha1 21:32 Inserted saline lock: 18 gauge in right antecubital area, using aseptic technique. kd3 Blood collected. 21:37 BNP Sent. kd3 21:37 Troponin High Sensitivity Sent. kd3 21:37 CBC with Diff Sent. kd3 21:37 CMP Sent. kd3 21:37 Lipase Sent. kd3 22:16 XRAY Chest (1 view) In Process Unspecified. EDMS 22:20 Notified ED physician of a critical lab result(s). troponin 203.7. kl 22:30 Chest Abd Pelvis Wo Con In Process Unspecified. EDMS 22:47 Patient has correct armband on for positive identification. Placed in gown. Bed in low ha1 position. Call light in reach. Side rails up X 1. 23:48 Kely Dugan MD is Hospitalizing Provider. sd2 12/18 00:41 SARS RAPID Sent. kd3 02:57 No provider procedures requiring assistance completed. Patient admitted, IV remains in ha1 place. 08:10 Primary Nurse role handed off by Laurie Nava, ANA em1 Administered Medications: 12/17 21:39 Drug: NS 0.9% 500 ml Route: IV; Rate: bolus; Site: right antecubital; ha1 23:50 Follow up: Response: No adverse reaction; IV Status: Completed infusion; IV Intake: ha1 500ml 23:49 CANCELLED (Physician Discretion): Aspirin Chewable Tablet 324 mg PO once; 81 mg tablets sd2 x 4 12/18 00:27 Drug: Lasix (furosemide) 80 mg Route: IVP; Site: right antecubital; ha1 00:55 Follow up: Response: No adverse reaction ha1 Medication: 02:57 VIS not applicable for this client. ha1 Intake: 12/17 23:50 IV: 500ml; Total: 500ml. ha1 Outcome: 23:49 Decision to Hospitalize by Provider. sd2 12/18 02:57 Admitted to ER Hold. Please see [facility] for further documentation. ha1 Condition: stable Discharge instructions given to patient, family, Instructed on the need for admit, Demonstrated understanding of instructions. 17:37 Patient left the ED. oe Signatures: Dispatcher [employer] EDMS Jasmyn Rosenberg, RN RN Alejandro Moctezuma em1 Sandip Clark oe Melanie Lyons Lauren, RN RN ld1 Dafne Fischer RN RN [email or web address] Jami Ahumada MD MD sd2 Laurie Nava RN RN ha1 Corrections: (The following items were deleted from the chart) 12/17 22:48 22:41 BP 116 / 58; Pulse 71bpm; Resp 22bpm; Pulse Ox 99% RA; Temp 99.7F; 113.4 kg; ha1 Height 5 ft. 11 in.; BMI: 34.8; ha1 22:49 21:15 BP 116 / 58; Pulse 71bpm; Resp 22bpm; Pulse Ox 99% RA; Temp 99.7F; 113.4 kg; ha1 Height 5 ft. 11 in.; BMI: 34.8; ha1
--- NOTE | 2021-12-17 23:50 | EDPHYS ---
Physician Documentation [facility] Name: Win Zheng Age: 71 yrs Sex: Male : 1950 Arrival Date: 12/17/2021 Time: 21:04 Bed 25 Private MD: ED Physician Jami Ahumada HPI: 12/17 21:46 This 71 yrs old Black Male presents to ER via Wheelchair with complaints of Abdominal sd2 Pain. 21:46 71-year-old male presents with a chief complaint of abdominal pain which just started sd2 earlier today. The patient reports it is located in the center of his abdomen with no radiation. He reports the pain is gotten progressively worse throughout the day. He denies any fevers, nausea, vomiting, diarrhea, chest pain or shortness of breath. However, the patient when he was called back from the waiting room appeared to have a syncopal episode in the wheelchair. He is now completely awake and alert with stable vital signs. The patient reports he was starting to "feel sleepy" before this episode occurred. States he overall feels well now and has not had pain like this previously. Currently on Pradaxa for A-fib.. Historical: - Allergies: 21:23 No Known Allergies; ld1 - PMHx: 21:23 Atrial Fib; Diabetes - NIDDM; Hyperlipidemia; Hypertension; ld1 - Immunization history:: Adult Immunizations up to date. - Social history:: Smoking status: Patient denies any tobacco usage or history of. Patient/guardian denies using alcohol. ROS: 21:46 Constitutional: Negative for fever, chills, and weight loss, Eyes: Negative for injury, sd2 pain, redness, and discharge, Cardiovascular: Negative for chest pain, palpitations, and edema, Positive for syncope Respiratory: Negative for shortness of breath, cough, wheezing. Abdomen/GI: Positive for abdominal pain, Negative for nausea, vomiting, diarrhea. Back: Negative for injury and pain, MS/Extremity: Negative for injury and deformity, Skin: Negative for injury, rash, and discoloration, Neuro: Negative for headache, numbness and tingling. Exam: 21:48 Constitutional: This is a well developed, well nourished patient who is awake, alert, sd2 and in no acute distress. Head/Face: Normocephalic, atraumatic. Eyes: EOMI, normal conjunctiva bilaterally Chest/axilla: Normal chest wall appearance and motion. Nontender with no deformity. Cardiovascular: Regular rate and rhythm with a normal S1 and S2. No gallops, murmurs, or rubs. 2+ distal pulses. Respiratory: Lungs have equal breath sounds bilaterally, clear to auscultation and percussion. No rales, rhonchi or wheezes noted. No increased work of breathing, no retractions or nasal flaring. Abdomen/GI: Soft, non-tender, with normal bowel sounds. No guarding or rebound. No evidence of tenderness throughout. Obese abdomen. No palpable mass. Skin: Warm, dry with normal turgor. Normal color with no rashes, no lesions, and no evidence of cellulitis. MS/ Extremity: Pulses equal, no cyanosis. Neurovascular intact. Full, normal range of motion. Ambulatory without difficulty. Psych: Awake, alert, with orientation to person, place and time. Behavior, mood, and affect are within normal limits. 21:48 ECG was reviewed by the Attending Physician. NSR, rate 78, 1st degree AV block, no sd2 STEMI criteria Vital Signs: 21:15 BP 116 / 58; Pulse 71; Resp 22; Temp 99.7; Pulse Ox 95% on R/A; Weight 113.4 kg; Height ha1 5 ft. 11 in. (180.34 cm); 21:22 Temp 99.7(O); ld1 22:48 BP 131 / 94; Pulse 69; Resp 20; Pulse Ox 95% on R/A; ha1 12/18 00:30 BP 106 / 46; Pulse 70; Resp 20 S; Pulse Ox 95% on R/A; ha1 12/17 21:15 Body Mass Index 34.87 (113.40 kg, 180.34 cm) ha1 MDM: 12/17 21:20 Patient medically screened. sd2 21:48 Differential Diagnosis Gastritis, cholecystitis, pancreatitis, SBO, diverticulitis, sd2 kidney stone, appendicitis, UTI, dehydration, electrolyte abnormality, AAA, dissection among others. Data reviewed: vital signs, nurses notes, EKG. 23:45 Data reviewed: lab test result(s), radiologic studies. Counseling: I had a detailed sd2 discussion with the patient and/or guardian regarding: the historical points, exam findings, and any diagnostic results supporting the discharge/admit diagnosis, lab results, radiology results, the need for further work-up and treatment in the hospital, to return to the emergency department if symptoms worsen or persist or if there are any questions or concerns that arise at home. 23:46 ED course: labs and imaging reviewed. Consistent with CHF or fluid overload with demand sd2 ischemia. Pt with no further episodes of syncope in ER. BP stable. CXR with mild CHF. Creatinine at baseline compared to most recent ER visit. Lasix IV given. Pt to be admitted to hospitalist service at this time for further management.. 12/17 21:15 Order name: CBC with Diff; Complete Time: 22:32 ph 12/17 21:15 Order name: CMP; Complete Time: 22:32 ph 12/17 21:15 Order name: Lipase; Complete Time: 22:32 ph 12/17 21:29 Order name: Troponin High Sensitivity; Complete Time: 22:32 sd2 12/17 21:29 Order name: BNP; Complete Time: 22:32 sd2 12/17 21:31 Order name: Glucose, Ancillary Testing; Complete Time: 22:32 EDNV 12/18 00:34 Order name: SARS RAPID sb4 12/18 00:59 Order name: SARS-COV-2 Antigen Rapid [facility] 12/18 01:46 Order name: Urine Dipstick-Ancillary [facility] 12/18 05:37 Order name: Creatine Phosphokinase [facility] 12/18 05:37 Order name: CKMB Creatine Kinase MB [facility] 12/18 05:37 Order name: Troponin High Sensitivity [facility] 12/18 05:37 Order name: Lipid Profile [facility] 12/18 05:56 Order name: Hemoglobin A1c [facility] 12/17 21:15 Order name: IV Saline Lock; Complete Time: 21:31 ph 12/17 21:15 Order name: Labs collected and sent; Complete Time: 21:31 ph 12/17 21:15 Order name: Urine Dipstick-Ancillary (obtain specimen); Complete Time: 02:54 ph 12/17 21:29 Order name: EKG - Nurse/Tech; Complete Time: 21:31 sd2 12/17 21:29 Order name: XRAY Chest (1 view); Complete Time: 22:32 sd2 12/17 21:29 Order name: CT Dissection w/wo Con sd2 12/17 22:21 Order name: Chest Abd Pelvis Wo Con; Complete Time: 23:10 EDMS 12/18 08:16 Order name: Glucose, Ancillary Testing EDMS 12/18 12:53 Order name: Glucose, Ancillary Testing EDMS 12/18 16:47 Order name: Glucose, Ancillary Testing EDMS Administered Medications: 21:39 Drug: NS 0.9% 500 ml Route: IV; Rate: bolus; Site: right antecubital; ha1 23:50 Follow up: Response: No adverse reaction; IV Status: Completed infusion; IV Intake: ha1 500ml 23:49 CANCELLED (Physician Discretion): Aspirin Chewable Tablet 324 mg PO once; 81 mg tablets sd2 x 4 12/18 00:27 Drug: Lasix (furosemide) 80 mg Route: IVP; Site: right antecubital; ha1 00:55 Follow up: Response: No adverse reaction ha1 Disposition Summary: 12/17/21 23:49 Hospitalization Ordered Hospitalization Status: Inpatient Admission sd2 Provider: Kely Dugan sd2 Condition: Stable sd2 Problem: new sd2 Symptoms: have improved sd2 Bed/Room Type: Standard sd2 Location: Telemetry/MedSurg (Inpatient)(12/18/21 14:29) dw Room Assignment: 204(12/18/21 14:29) Diagnosis - Congestive heart failure sd2 - Elevated troponin sd2 - Demand ischemia sd2 - Syncope sd2 Forms: - Medication Reconciliation Form sd2 - SBAR form sd2 Signatures: Dispatcher [employer] [facility] Rody Hua RN RN dw Hall, Patricia, RN RN ph Garcia, Cindy, RN RN cg Dibbern, Lauren, RN RN ld1 Dunlop, Stephanie, MD MD sd2 Laurie Nava RN RN ha1 Corrections: (The following items were deleted from the chart) 12/17 21:48 21:46 Constitutional: Negative for fever, chills, and weight loss, Eyes: Negative for sd2 injury, pain, redness, and discharge, Cardiovascular: Negative for chest pain, palpitations, and edema, Respiratory: Negative for shortness of breath, cough, wheezing. Abdomen/GI: Positive for abdominal pain, Negative for nausea, vomiting, diarrhea. Back: Negative for injury and pain, MS/Extremity: Negative for injury and deformity, Skin: Negative for injury, rash, and discoloration, Neuro: Negative for headache, numbness and tingling. sd2 22:21 21:34 Dissection W/Wo Con ordered. EDMS EDMS 23:49 23:49 Aspirin Chewable Tablet 324 mg PO once; 81 mg tablets x 4 ordered. sd2 sd2 12/18 00:12/17 23:49 Telemetry/MedSurg (Inpatient) ms2 12/19 99:12/17 23:49 [facility] 12/18 14: 00:29 [facility] ER HOLD cg dw 00:29 ERHOLD- cg dw
[2021-12-18] MEDS ORDERED: FUROSEMIDE 40 MG/4 ML VIAL ONE (00:14)
--- NOTE | 2021-12-18 00:25 | P.HP ---
Certification for Inpatient Patient admitted to: Inpatient With expected LOS: <2 Midnights Patient will require the following post-hospital care: None Practitioner: I am a practitioner with admitting privileges, knowledge of patient current condition, hospital course, and medical plan of care. Services: Services provided to patient in accordance with Admission requirements found in Title 42 Section 412.3 of the Code of Federal Regulations Patient History Date of Service: 12/18/21 Primary Care Provider: Kwasi Reason for admission: Abdominal Pain, Elevated Troponin History of Present Illness: Patient is a 71-year-old male with history of CAD, hypertension, A. fib on Pradaxa, noninsulin-dependent type 2 diabetes, CKD 3B and diastolic CHF who presented to the ED with complaints of abdominal pain. Patient reports that the abdominal pain is generalized and is upper quadrant and began this morning. He denies nausea vomiting diarrhea. He apparently had a brief syncopal episode in the waiting room but reports he is feeling fine. His vital signs are stable. His labs are significant for troponin at bedtime 200, BNP 100, creatinine 3 (around baseline). Chest xray showed mild CHF. CT chest, abdomen, pelvis negative. He was given 80 of Lasix in the ED. During my assessment, he has no complaints. He states that he sees Dr. Corcoran but has not seen him in a while. He denies any current chest pain. ED provider wishes admit patient for further management Allergies No Known Allergies Allergy (Unverified 05/10/13 08:57) Home Medications: Cholecalciferol (Vitamin D3) [Vitamin D3] 1 cap PO DAILY 03/04/18 Cyanocobalamin [Vitamin B-12*] 1 tab PO DAILY 03/04/18 Furosemide [Lasix] 80 mg PO BID 03/04/18 Glimepiride 1 tab PO DAILY 03/04/18 Hydralazine [Apresoline] 50 mg PO TID 03/04/18 Losartan Potassium [Cozaar] 100 mg PO DAILY 03/04/18 Multivit-Min/FA/Lycopen/Lutein [Centrum Silver Men Tablet] 1 tab PO DAILY 03/04/18 Na Bicarb Tab [Sodium Bicarb 325 MG] 325 mg PO BID 03/04/18 Rivaroxaban [Xarelto] 15 mg PO DAILY 03/04/18 Simvastatin 40 mg PO BEDTIME 03/04/18 Sotalol HCl [Betapace] 80 mg PO DAILY 03/04/18 Spironolactone [Aldactone] 50 mg PO DAILY 03/04/18 Terazosin HCl 2 mg PO BID 03/04/18 allopurinoL [Zyloprim] 300 mg PO DAILY 03/04/18 bisacodyL [Dulcolax*] 5 mg PO DAILY PRN 03/04/18 - Past Medical/Surgical History Diabetic: Yes -: Afib -: Anemia -: Kidney Failure -: Diabetes -: Hypertension -: CHF Past Surgical History: Patient denies surgical history Psychosocial/ Personal History: Patient is . - Family History Father -: Hypertension, Diabetes Mother -: Hypertension - Social History Smoking Status: Never smoker Alcohol use: Yes CD- Drugs: No Caffeine use: Yes Place of Residence: Home Review of Systems Gastrointestinal: Abdominal Pain Physical Examination - Physical Exam General: Alert, In no apparent distress, Obese HEENT: Atraumatic, PERRLA, EOMI, Sclerae nonicteric Neck: Supple, 2+ carotid pulse no bruit, No LAD, Without JVD or thyroid abnormality Respiratory: Clear to auscultation bilaterally, Normal air movement Cardiovascular: Regular rate/rhythm, Normal S1 S2 Gastrointestinal: Normal bowel sounds, No tenderness Musculoskeletal: No tenderness Integumentary: No rashes Neurological: Normal speech, Normal strength at 5/5 x4 extr, Normal tone, Normal affect - Studies Laboratory Data (last 24 hrs) 12/17/21 21:24: Sodium 137, Potassium 4.0, BUN 44 H, Creatinine 3.00 H, Glucose 177 H, Total Bilirubin 0.7, AST 18, ALT 26, Alkaline Phosphatase 80, Lipase 172 12/17/21 21:24: WBC 12.70 H, Hgb 12.3 L, Hct 38.2 L, Plt Count 205 Assessment and Plan - Problems (Diagnosis) (1) Afib Current Visit: Yes Status: Acute Qualifiers: Atrial fibrillation type: paroxysmal Qualified Code(s): I48.0 - Paroxysmal atrial fibrillation (2) CKD (chronic kidney disease) Current Visit: Yes Status: Acute Qualifiers: Chronic kidney disease stage: stage 3 (moderate) Chronic kidney disease stage 3 subtype: stage 3b (GFR 30-44) Qualified Code(s): N18.32 - Chronic kidney disease, stage 3b (3) Type 2 diabetes mellitus Current Visit: Yes Status: Chronic Qualifiers: Diabetes mellitus intermediate project manager insulin use: without penitentiary use Diabetes mellitus complication status: with hyperglycemia Qualified Code(s): E11.65 - Type 2 diabetes mellitus with hyperglycemia (4) Abdominal pain Current Visit: Yes Status: Acute Qualifiers: Abdominal location: upper abdomen, unspecified Qualified Code(s): R10.10 - Upper abdominal pain, unspecified (5) Syncope Current Visit: Yes Status: Acute Qualifiers: Syncope type: unspecified Qualified Code(s): R55 - Syncope and collapse (6) CAD (coronary artery disease) Current Visit: Yes Status: Chronic Qualifiers: Coronary Disease-Associated Artery/Lesion type: [place] artery [place] vs. transplanted heart: [place] heart Associated angina: without angina Qualified Code(s): I25.10 - Atherosclerotic heart disease of [place] coronary artery without angina pectoris (7) Diastolic heart failure Current Visit: Yes Status: Chronic - Plan -Cardiology consult. Echocardiogram ordered, last done in 2019 with preserved EF -Trend serial cardiac enzymes as troponin was elevated. Per chart review, troponin has been elevated on prior admissions-likely demand ischemia -Check orthostatic vitals -Aspirin and atorvastatin daily -Consider abdominal ultrasound if abdominal pain does not resolve, however patient does not appear to be any distress -ACH Accu-Cheks with mild sliding scale insulin and diabetic diet -A1c, lipid panel, and TSH -Monitor and replete electrolytes per protocol -Reconcile and continue home medications -Lovenox for VTE ppx -Full code Discharge Plan: Home Plan to discharge in: 48 Hours - Advance Directives Does patient have a Living Will: No Does patient have a Durable POA for Healthcare: No - Code Status/Comfort Care Code Status Assessed: Yes (Full) Critical Care: No Time Spent Managing Pts Care (In Minutes): 50
[2021-12-18 00:58] LABS: SARS-CoV-2 Antigen Rapid Res Negative (Negative)
[2021-12-18 01:45] LABS: Urine Blood Trace-intact (Negative); Urine Glucose Negative (Negative); Urine Protein 2+ (Negative); Urine Specific Gravity 1.015 (1.005-1.030); Urine pH 5.5 (5.0-7.0)
[2021-12-18] MEDS ORDERED: ONDANSETRON 4 MG/2 ML VIAL IV PRN (03:26)
[2021-12-18] MEDS ORDERED: ACETAMINOPHEN 500 MG TAB PO PRN (03:26)
[2021-12-18 05:09] VITALS: BMI 39.1
[2021-12-18 05:36] LABS: CKMB Creatine Kinase MB < 1.0 ng/mL (1.0-3.6); Creatine Phosphokinase 133 U/L (39-308); HDL Cholesterol 45 mg/dL (40-60); LDL Cholesterol, Calculated 42 mg/dL (<130); Troponin High Sensitivity 193.8 pg/mL (<58.9)
[2021-12-18] MEDS: INSULIN -REGULAR HUMAN 50 UNIT/0.5 ML ML SQ SCH ×4 (07:30→20:08)
[2021-12-18] MEDS ORDERED: INFLUENZA VACCINE (for 6+ mo) 0.5 ML DOSE IMVAC ONE (08:00)
[2021-12-18] MEDS ORDERED: PNEUMOCOCCAL VACCINE 0.5 ML IMVAC ONE (08:00)
[2021-12-18] MEDS ORDERED: INSULIN -REGULAR HUMAN 50 UNIT/0.5 ML ML ONE ×2 (08:53→12:46)
[2021-12-18] MEDS ORDERED: ENOXAPARIN 30 MG/0.3 ML SQ ONE (08:56)
[2021-12-18] MEDS ORDERED: ASPIRIN EC 81 MG TAB PO ONE (08:56)
[2021-12-18] MEDS: ENOXAPARIN 30 MG/0.3 ML SQ SCH (09:07)
[2021-12-18] MEDS: ASPIRIN EC 81 MG TAB PO SCH (09:07)
--- NOTE | 2021-12-18 16:14 | EKG ---
Test Date: 2021-12-17 Test Time: 21:38:22 Legal Services Manager: NORMA MEASUREMENT RESULTS: Intervals: Rate: 78 SD: 286 QRSD: 80 QT: 398 QTc: 453 [place]: P: 78 SD: 286 QRS: -60 T: 74 INTERPRETIVE STATEMENTS: Sinus rhythm with 1st degree AV block Left axis deviation Septal infarct, age undetermined Abnormal ECG Compared to ECG 03/04/2018 07:56:55 First degree AV block now present Left-axis deviation now present Atrial fibrillation no longer present Myocardial infarct finding still present Electronically Signed On 12-18-21 16:13:39 CDT by Maximilian Esteves
[2021-12-18] MEDS ORDERED: ATORVASTATIN 40 MG TAB PO SCH (21:00)
--- NOTE | 2021-12-18 22:27 | CON ---
Date of Consultation: 12/18/2021 Reason For Consultation: Elevated troponin. History Of Present Illness: This is a 71-year-old male with history of coronary artery disease, hype rtension, atrial fibrillation, diabetes, chronic kidney disease, and diastolic heart failure who pres ented to emergency room complaining of abdominal pain. Pain is in the upper abdomen and epigastric a nd right upper quadrant. Denies nausea, vomiting, or diarrhea and has been resolved. However, his t roponin was elevated and the patient denies having any chest pain. The patient follows up with Dr. Roberto Carlos sloan on regular basis and had cardiac workup within this past year. Past Medical History: As outlined above in the HPI. Medications: Refer to reconciliation sheet for detailed list. Allergies: NO KNOWN DRUG ALLERGIES. Family History: No premature coronary artery disease or cancer. Social History: Does not smoke or drink. Does not use any drugs. Review of Systems: All systems reviewed and are negative except for what is mentioned in HPI. Physical Examination: Vital Signs: Temperature is 98.0, pulse 60, breathing at 18, blood pressure 115/69, saturating 100%. General: A pleasant elderly male, in no apparent distress. Head And Neck: Pupils are equal and reactive to light. Intact eye movements. No JVD. No cervical lymphadenopathy. Neck: Supple. Thyroid is not enlarged. Lungs: Clear to auscultation bilaterally. No rhonchi, wheezing, or crackles. No accessory muscle u se. Heart: Regular rate and rhythm. No extra sounds. Abdomen: Soft, nontender. Bowel sounds positive. No organomegaly. No masses or hernia. No rigidi ty or rebound. Extremities: No edema, clubbing, or cyanosis. Intact pulses. Skin: No rashes. Neurologic: Alert, awake, oriented x3. No acute focal deficits appreciated. Lymph Nodes: No cervical or axillary lymphadenopathy. Investigations: Troponin initially was 203, but then 193. His creatinine is 3.0, he is noted to hav e chronic kidney disease. Echo has normal ejection fraction and no wall motion abnormalities. Assessment And Recommendations: 1.Elevated troponin. No chest pain. Echo has normal ejection fraction and normal wall motion. Thi s is a demand ischemia and no further cardiac workup is recommended during this hospital stay. From Cardiology standpoint, patient can be released and follow up with Dr. Loya in 2 weeks in the offic e. 2.Chronic kidney disease, being managed by Nephrology. 3.Dyslipidemia. Continue statin. SR/MODL Voice ID: [id number] Report ID: [id number]
[2021-12-18 23:29] LABS: Specific Gravity 1.013 (1.005-1.030); Urine Bacteria 20-50 /HPF (<20); Urine Bilirubin NEGATIVE (Negative); Urine Blood Trace (Negative); Urine Clarity Turbid (Clear); Urine Color Light-Yellow (Yellow); Urine Glucose NEGATIVE (Negative); Urine Mucus Slight /HPF (None Seen); Urine Protein 1+ (Negative); Urine Urobilinogen Normal (Normal); Urine WBC Clump Occasional /HPF (None Seen); Urine pH 5.5 (5.0-7.0)
[2021-12-19 06:37] LABS: Absolute Lymphocytes (CBC) 1.5 K/uL (0.7-4.9); Hematocrit 33.9 % (39.6-49.0); Lymphocytes % 18.8 % (15.3-44.8); MCV 90.2 fL (80-100); MPV 7.7 fL (7.6-11.3); RBC Red Blood Cell Count 3.76 M/uL (4.33-5.43)
[2021-12-19 06:50] LABS: Magnesium 2.3 mg/dL (1.8-2.4); Phosphorus 3.7 mg/dL (2.5-4.9); Potassium 4.1 mmol/L (3.5-5.1)
--- NOTE | 2021-12-19 07:19 | ECHO ---
HEIGHT: 5 ft 7 in WEIGHT: 246 lb 4.8 oz DATE OF STUDY: 12/18/[address]: Alyssia Joseph 2-DIMENSIONAL: YES M.MODE: YES DOPPLER: YES COLOR FLOW: YES TDS: NO PORTABLE: YES DEFINITY: NO BUBBLE STUDY: NO DIAGNOSIS: CONGESTIVE HEART FAILURE CARDIAC HISTORY: CATHERIZATION: NO SURGERY: NO PROSTHETIC VALVE: NO PACEMAKER: NO MEASUREMENTS (cm) DIASTOLIC (NORMALS) SYSTOLIC (NORMALS) IVSd 1.3 (0.6-1.2) LA Diam 3.9 (1.9-4.0) LVEF 60-65% LVIDd 4.3 (3.5-5.7) LVIDs 2.5 (2.0-3.5) %FS 40% LVPWd 1.4 (0.6-1.2) Ao Diam 2.6 (2.0-3.7) 2 DIMENSIONAL ASSESSMENT: RIGHT ATRIUM: NORMAL LEFT ATRIUM: ENLARGED RIGHT VENTRICLE: NORMAL LEFT VENTRICLE: NORMAL TRICUSPID VALVE: MITRAL VALVE: PULMONIC VALVE: NORMAL AORTIC VALVE: NORMAL PERICARDIAL EFFUSION: NONE AORTIC ROOT: NORMAL LEFT VENTRICULAR WALL MOTION: NORMAL DOPPLER/COLOR FLOW: SEE BELOW. COMMENTS: NORMAL LEFT VENTRICULAR EJECTION FRACTION 60-65%. NORMAL WALL MOTION. MODERATE DIASTOLIC DYSFUNCTION. MILD MITRAL AND TRICUSPID REGURGITATION. TECHNOLOGIST: Zuleyka DIAZ
[2021-12-19] MEDS: ENOXAPARIN 30 MG/0.3 ML SQ SCH (07:53)
[2021-12-19] MEDS: ASPIRIN EC 81 MG TAB PO SCH (07:53)
[2021-12-19] MEDS: INSULIN -REGULAR HUMAN 50 UNIT/0.5 ML ML SQ SCH ×2 (07:53→11:33)
[2021-12-19 11:58] VITALS: BP 117/60; TEMP 96.9
[2021-12-19] MEDS ORDERED: INFLUENZA VACCINE (for 6+ mo) 0.5 ML DOSE IMVAC ONE (12:00)
[2021-12-19 12:24] VITALS: O2SAT 97
== END 2021-12-19 12:30 | disposition home or self-care (01) | DRG 392 ==
LOC: ER 20:59 → ERHOLD 12-18 00:24 → 2ND 12-18 16:02
PROVIDERS: ADMIT Hospitalist; ATTEND Hospitalist
DX: R10.10 Upper abdominal pain, unspecified (principal); I13.0 Hypertensive heart and chronic kidney disease with heart failure and stage 1 through stage 4 chronic kidney disease, or unspecified chronic kidney disease; I24.8 Other forms of acute ischemic heart disease; I50.32 Chronic diastolic (congestive) heart failure; I48.0 Paroxysmal atrial fibrillation; N18.32 Chronic kidney disease, stage 3b; I25.10 Atherosclerotic heart disease of native coronary artery without angina pectoris; E11.22 Type 2 diabetes mellitus with diabetic chronic kidney disease; E11.65 Type 2 diabetes mellitus with hyperglycemia; E78.5 Hyperlipidemia, unspecified; E66.9 Obesity, unspecified; R55 Syncope and collapse; R77.8 Other specified abnormalities of plasma proteins; Z68.39 Body mass index [BMI] 39.0-39.9, adult; Z79.84 Long term (current) use of oral hypoglycemic drugs; Z79.01 Long term (current) use of anticoagulants; Z79.899 Other long term (current) drug therapy; Z20.822 Contact with and (suspected) exposure to COVID-19
CPT/HCPCS: 36415; 71045; 71250; 74176; 80048; 80053; 80061; 81001; 81003; 82550; 82553; 82947; 83036; 83690; 83735; 83880; 84100; 84484; 85025; 87086; 87088; 87811; 90471; 93005; 93306; 96361; 96374; 99285; J1650; J1815; J1940; J7040; Q2035

== ENCOUNTER 2023-12-14 11:56 | Emergency (ER) | payer OTHER ==
[2023-12-14 12:44] LABS: Specific Gravity 1.017 (1.005-1.030); Sqamous Epithelial <5 /HPF (None Seen); Urine Bacteria None Seen /HPF (<20); Urine Bilirubin NEGATIVE (Negative); Urine Blood Negative (Negative); Urine Clarity Extremely Turbid (Clear); Urine Color Light-Yellow (Yellow); Urine Culture Reflex Order NOT NEEDED; Urine Glucose NEGATIVE (Negative); Urine Ketones NEGATIVE (Negative); Urine Microscopic Reflex YN ORDER UMIC; Urine Mucus Slight /HPF (None Seen); Urine Nitrite NEGATIVE (Negative); Urine Protein 2+ (Negative); Urine RBC None Seen /HPF (None Seen); Urine Sperm Present (None Seen); Urine Urobilinogen Normal (Normal); Urine WBC <5 /HPF (<5); Urine pH 5.5 (5.0-7.0)
[2023-12-14 12:57] LABS: Absolute Eosinophils 0.2 K/uL (0-0.5); Absolute Lymphocytes (CBC) 1.5 K/uL (0.7-4.9); Absolute Monocytes 0.7 K/uL (0.1-1.3); Absolute Neutrophil 6.5 K/uL (1.8-8.0); Basophils % 0.4 % (0-1.3); Eosinophils % 2.4 % (0-4.4); Hemoglobin 12.4 g/dL (13.6-17.9); MCH 28.7 pg (27.0-35.0); MCHC 32.6 g/dL (32.0-36.0); MPV 8.3 fL (7.6-11.3); Monocytes % 7.6 % (3.3-12.3); Neutrophils % 72.6 % (41.7-73.7); Platelets 183 thou/uL (152-406); RBC Red Blood Cell Count 4.31 M/uL (4.33-5.43)
[2023-12-14 13:15] LABS: Albumin/Globulin Ratio 0.6 (1.1-1.8); Anion Gap 9.7 mEq/L (5.0-15.0); Bilirubin Total 0.6 mg/dL (0.2-1.0); Globulin 4.9 g/dL (2.3-3.5); Potassium 4.7 mEq/L (3.5-5.1); Protein, Total 7.9 g/dL (6.4-8.2)
--- NOTE | 2023-12-14 13:32 | RAD REPORT ---
EXAMINATION: Abdomen Pelvis Wo Contrast CLINICAL INDICATION: Male, 73 years old. ABD PAIN TECHNIQUE: CT abdomen and pelvis was performed, without IV contrast, as per department protocol. Axia l, sagittal and coronal reconstructions were obtained. One or more of the following dose reduction techniques were used: Automated exposure control, adjustment of the mA and kV according to the patien t size, and iterative reconstruction. Unless otherwise specified, incidental findings do not require dedicated imaging follow-up. COMPARISON: No prior exam. FINDINGS: The lack of intravenous contrast limits the sensitivity of this exam for evaluation of solid visceral organs, vascular structures, and retroperitoneum. LOWER CHEST: The visualized lung bases are clear. LIVER: Normal in size and contour. No focal lesion. BILIARY SYSTEM: Cholelithiasis. No pericholecystic fluid or fat stranding. SPLEEN: Normal size. No focal lesion. PANCREAS: No mass, ductal dilation, or feliz-pancreatic fluid. ADRENALS: Normal; no mass. KIDNEYS AND URETERS: Atrophic changes bilaterally. Inferior pole cortical 2.3 cm cyst. No hydronephro sis. URINARY BLADDER: Normal contour. GASTROINTESTINAL TRACT: No evidence of bowel obstruction, free air or abscess. Mild free ascites APPENDIX: Normal appendix. LYMPH NODES: Numerous prominent lymph nodes in the epigastrium, up to 1.4 cm in short axis. MUSCULOSKELETAL: No acute or suspicious osseous abnormality. ADDITIONAL FINDINGS: Small umbilical hernia containing fat. IMPRESSION: Moderately prominent adenopathy in the epigastrium, nonspecific, may reflect an ongoing inflammatory process relating to the stomach or biliary tree. Mild free ascites. Other incidental findings as above including cholelithiasis.
--- NOTE | 2023-12-14 13:51 | ER ---
Nurse's Notes [facility] Name: Win Zheng Age: 73 yrs Sex: Male : 1950 Arrival Date: 12/14/2023 Time: 11:56 Bed 25 Private MD: Diagnosis: Other ascites;Chronic kidney disease, unspecified Presentation: 12/13 12:18 Chief complaint: Patient states: unable to eat; reports mild nausea; diarrhea x3 since ar6 yesterday; denies pain. Coronavirus screen: Client denies travel out of the [place] in the last 14 days. At this time, the client does not indicate any symptoms associated with coronavirus-19. Ebola Screen: Patient negative for fever greater than or equal to 101.5 degrees Fahrenheit, and additional compatible Ebola Virus Disease symptoms Patient denies exposure to infectious person. Patient denies travel to an Ebola-affected area in the 21 days before illness onset. No symptoms or risks identified at this time. Initial Sepsis Screen: Does the patient meet any 2 criteria? No. Patient's initial sepsis screen is negative. Does the patient have a suspected source of infection? No. Patient's initial sepsis screen is negative. Risk Assessment: Do you want to hurt yourself or someone else? Patient reports no desire to harm self or others. Onset of symptoms was December 07, 2023. 12:18 Method Of Arrival: Ambulatory ar6 12:18 Acuity: RHONA 3 ar6 Triage Assessment: 12:21 General: Appears in no apparent distress. comfortable, Behavior is calm, cooperative, ar6 appropriate for age. Pain: Denies pain. EENT: Oral mucosa is moist. Neuro: Level of Consciousness is awake, alert, obeys commands, Oriented to person, place, time, situation. Cardiovascular: Capillary refill < 3 seconds. Respiratory: Airway is patent. GI: Abdomen is round Bowel sounds present X 4 quads. Reports nausea. : Urine is cloudy, Denies inability to void, incontinence, urinary frequency, urgency. Derm: Skin is intact, is healthy with good turgor, Skin is dry, Skin is pink, warm \T\ dry. Musculoskeletal: No signs and/or symptoms reported regarding the musculoskeletal system. Historical: - PMHx: 12:21 Atrial Fib; Diabetes - NIDDM; Hyperlipidemia; Hypertension; ar6 - Immunization history:: Adult Immunizations up to date. - Infectious Disease History:: Denies. - Social history:: Smoking status: Patient denies any tobacco usage or history of. Screenin:25 [facility] ED Fall Risk Assessment (Adult) History of falling in the last 3 months, ar6 including since admission No falls in past 3 months (0 pts) Confusion or Disorientation No (0 pts) Intoxicated or Sedated No (0 pts) Impaired Gait No (0 pts) Mobility Assist Device Used No (0 pt) Altered Elimination No (0 pt) Score/Fall Risk Level 0 - 2 = Low Risk Oriented to surroundings, Maintained a safe environment, Educated pt \T\ family on fall prevention, incl call for assistance when getting out of bed, Hourly rounding (assess needs \T\ fall precautionary measures) done. Abuse screen: Denies threats or abuse. Denies injuries from another. Nutritional screening: No deficits noted. Tuberculosis screening: No symptoms or risk factors identified. Assessment: 12:25 Reassessment: see triage assessment. ar6 12:25 GI: Abd is soft X 4 quads. ar6 Vital Signs: 12:18 BP 151 / 77; Pulse 78; Resp 18; Temp 98.1; Pulse Ox 99% on R/A; Weight 111.13 kg; ar6 Height 5 ft. 11 in. ; Pain 0/10; 12:24 BP 151 / 77; Pulse 84; Resp 18; Pulse Ox 99% on R/A; Pain 0/10; ar6 13:48 BP 138 / 71; Pulse 90; Resp 18; Pulse Ox 99% on R/A; ar6 13:57 BP 146 / 73; Pulse 88; Resp 17; Pulse Ox 99% on R/A; ar6 12:18 Body Mass Index 34.17 (111.13 kg, 180.34 cm) ar6 12:18 Pain Scale: Adult ar6 12:24 Pain Scale: Adult ar6 ED Course: 12:01 Patient arrived in ED. mg5 12:03 Danish Ramirez MD is Attending Physician. ec2 12:07 Laney Mares, RN is Primary Nurse. ar6 12:21 Triage completed. ar6 12:21 Arm band placed on right wrist. ar6 12:25 Patient has correct armband on for positive identification. Placed in gown. Bed in low ar6 position. Call light in reach. Side rails up X 1. Provided Education on: plan of care. Pulse ox on. NIBP on. Door closed. Lights dimmed. Moved to private room. Warm blanket given. Head of bed elevated. 12:25 No provider procedures requiring assistance completed. ar6 12:30 Inserted saline lock: 20 gauge in right antecubital area, using aseptic technique. ar6 Blood collected. Flushed with 10 mL NS. 12:45 CBC with Diff Sent. ar6 12:45 CMP Sent. ar6 12:45 Lipase Sent. ar6 12:50 CT Abd/Pelvis - Without Contrast In Process Unspecified. EDMS 13:50 Paul Holliday MD is Referral Physician. ec2 13:58 IV discontinued, intact, bleeding controlled, No redness/swelling at site. Pressure ar6 dressing applied. Administered Medications: No medications were administered Medication: 12:25 VIS not applicable for this client. ar6 Outcome: 13:50 Discharge ordered by . ec2 13:58 Discharged to home ambulatory, ar6 13:58 Condition: good 13:58 Discharge instructions given to patient, family, Instructed on discharge instructions, follow up and referral plans. medication usage, Demonstrated understanding of instructions, follow-up care, medications, Prescriptions given X 1, 14:03 Patient left the ED. ar6 Signatures: Dispatcher [employer] EDKat Pop mg5 Danish Ramirez MD MD ec2 Laney Mares, RN RN ar6
--- NOTE | 2023-12-14 13:51 | EDPHYS ---
Physician Documentation [facility] Name: Win Zheng Age: 73 yrs Sex: Male : 1950 Arrival Date: 12/14/2023 Time: 11:56 Bed 25 Private MD: ED Physician Danish Ramirez HPI: 12/13 13:07 This 73 yrs old Black Male presents to ER via Ambulatory with complaints of Abdominal ec2 Pain. 13:07 Patient arrives today for evaluation of decreased p.o. intake. Patient reports he has a ec2 history of CKD, discussion ongoing regarding possible initiation of dialysis in the near future. No nausea, no vomiting, does have abdominal distention with his baseline and unchanged for him. Denies any abdominal pain. Patient reports no urinary complaints. Reports he has a lack of appetite which is what prompted evaluation.. Historical: - PMHx: 12:21 Atrial Fib; Diabetes - NIDDM; Hyperlipidemia; Hypertension; ar6 - Immunization history:: Adult Immunizations up to date. - Infectious Disease History:: Denies. - Social history:: Smoking status: Patient denies any tobacco usage or history of. ROS: 13:07 Constitutional: as per hpi ec2 Exam: 13:07 Constitutional: GEN: NAD Head: atraumatic Eyes: EOMI Ears: External ears are ec2 normal. CV: regular rate LUNGS: no respiratory distress ABD: non-distended generally distended abdomen Guarding or rigid. SKIN: no evidence of rashes MSK: no evidence of trauma Vital Signs: 12:18 BP 151 / 77; Pulse 78; Resp 18; Temp 98.1; Pulse Ox 99% on R/A; Weight 111.13 kg; ar6 Height 5 ft. 11 in. ; Pain 0/10; 12:24 BP 151 / 77; Pulse 84; Resp 18; Pulse Ox 99% on R/A; Pain 0/10; ar6 13:48 BP 138 / 71; Pulse 90; Resp 18; Pulse Ox 99% on R/A; ar6 13:57 BP 146 / 73; Pulse 88; Resp 17; Pulse Ox 99% on R/A; ar6 12:18 Body Mass Index 34.17 (111.13 kg, 180.34 cm) ar6 12:18 Pain Scale: Adult ar6 12:24 Pain Scale: Adult ar6 MDM: 12:12 Medical Screening Exam initiated ec2 13:08 Data reviewed: vital signs. ED course: Patient arrives today for lack of appetite. ec2 Examination remarkable for well-appearing nontoxic individuals otherwise in no acute distress with reassuring hemodynamics. Will obtain lab work, CT imaging. Differential diagnosis include processes such as small bowel obstruction, urinary tract infection, electrolyte disturbances, anemia. 13:49 ED course: CT imaging shows adenopathy, mild free ascites, patient reports no ec2 significant change in his distention. Patient without abdominal pain, not febrile, no leukocytosis 11, doubt SBP. Will discharge home have follow-up with GI and nephrology. Return precautions given. . 12/13 12:21 Order name: CBC with Diff; Complete Time: 13:03 ec2 12/13 12:21 Order name: CMP; Complete Time: 13:18 ec2 12/13 12:21 Order name: Lipase; Complete Time: 13:18 ec2 12/13 12:21 Order name: Urinalysis w/ reflexes; Complete Time: 13:03 ec2 12/13 12:21 Order name: CT Abd/Pelvis - Without Contrast; Complete Time: 13:48 ec2 12/13 12:21 Order name: IV Saline Lock; Complete Time: 12:45 ec2 12/13 12:21 Order name: Labs collected and sent; Complete Time: 12:45 ec2 Administered Medications: No medications were administered Disposition Summary: 12/14/23 13:50 Discharge Ordered Notes: Location: Home ec2 Condition: Stable ec2 Diagnosis - Other ascites ec2 - Chronic kidney disease, unspecified ec2 Followup: ec2 - With: Private Physician - When: - Reason: Re-evaluation by your physician Followup: ec2 - With: Paul Holliday MD - When: - Reason: Recheck today's complaints Discharge Instructions: - Discharge Summary Sheet ec2 - Chronic Kidney Disease, Adult, [id number] ec2 Forms: - Medication Reconciliation Form ec2 - Antibiotic Education ec2 - Prescription Opioid Use ec2 - Patient Portal Instructions ec2 - Leadership Thank You Letter ec2 Prescriptions: - Zofran 4 mg Oral Tablet - take 1 tablet ORAL route every 12 hours As needed; 20 tablet; Refills: 0, ec2 Product Selection Permitted Signatures: Dispatcher [employer] Danish Cyr MD MD ec2 Mares, Laney, RN RN ar6
[2023-12-14 15:32] VITALS: O2SAT 99
[2023-12-14 15:34] VITALS: TEMP 98.1
[2023-12-14 15:37] VITALS: BP 146/73
== END 2023-12-14 14:03 | disposition home or self-care (01) ==
LOC: ER 11:56
DX: R18.8 Other ascites (principal); E11.22 Type 2 diabetes mellitus with diabetic chronic kidney disease; I12.9 Hypertensive chronic kidney disease with stage 1 through stage 4 chronic kidney disease, or unspecified chronic kidney disease; N18.9 Chronic kidney disease, unspecified
CPT/HCPCS: 36415; 74176; 80053; 81001; 83690; 85025; 99284

== ENCOUNTER 2023-12-23 13:36 | Inpatient (IN) | payer OTHER ==
--- OUTSIDE RECORDS SUMMARY | 2023-12-23 13:40 | XMS REPORT | Continuity of Care Document ---
Author Name Unknown Address [address] [facility] [address] [place] [address] [facility] thconnect Address [address] [facility] [address] [place] [address] Care Team Providers Care Bench Molder Name Role Phone Crissy Villalpando Attending Clinician Unavailable Alycia Hoffman Attending Clinician Unavailable Payers Payer Name Policy Type Policy Number Effective Date Expirati on Date Source [employer] MEDICARE 53 [id number] 2021 00:00:00 [facility] AETNA 53 [id number] 2002 00:00:00 [facility] MEDICARE NOVITAS [id number] 2014 00:00:00 [facility] Problems Condition Name Condition Details Condition Category Status Onset Date Resolution Date Last Treatment Date Treating Clinician Comments Source [id number] 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 Problem [facility] [id number] Chronic gout involving toe without tophus, unspecifie d cause, unspecifie d laterality Problem [facility] [id number] 101 Benign prostatic hyperplasi a with lower urinary tract symptoms Problem [facility] Hypertensi on HTN (hypertens ion) Problem [facility] Vitamin B12 deficiency Vitamin B12 deficiency Problem [facility] [id number] Encounter for immunizati on Problem [facility] [id number] CKD (chronic kidney disease) stage 4, GFR 15-29 ml/min Problem [facility] [id number] Mixed hyperlipid emia Problem [facility] [id number] History of colon polyps Problem [facility] Coronary artery disease CAD (coronary artery disease) Problem [facility] [id number] Type 2 diabetes mellitus with diabetic chronic kidney disease Problem [facility] [id number] Longstandi ng persistent atrial fibrillati on Problem [facility] [id number] Anemia in chronic kidney disease Problem [facility] [id number] Chronic kidney disease, unspecifie d Problem [facility] [id number] Other ascites Problem [facility] [id number] Anorexia Problem [facility] [id number] Asymptomat ic cholelithi asis Problem [facility] Social History Social Habit Start Date Stop Date Quantity Comments Source History of Tobacco Use [facility] Sex Assigned At [facility] Smoking Status Start Date Stop Date Source Never Smoker [facility] Medications Ordered Medication Name Filled Medication Name Start Date Stop Date Current Medication? Ordering Clinician Indication Dosage Frequency Signature (SIG) Comments Components Source Lantus SoloStar 100 UNIT/ML Lantus SoloStar 100 UNIT/ML 9- 00:00: 00 No QD Lantus SoloStar 100 UNIT/ML Vitamin B12 (Cyanocobal sesay) Vitamin B12 (Cyanocobal sesay) 6-19 00:00: 00 No 1000ug [facility] Ferrous Sulfate 325 (65 Fe) MG Ferrous Sulfate 325 (65 Fe) MG No 1{table t} QD Ferrous Sulfate 325 (65 Fe) MG Sodium Bicarbonate 325 MG Sodium Bicarbonate 325 MG No BID Sodium Bicarbonat e 325 MG hydrALAZINE HCl 50 MG hydrALAZINE HCl 50 MG No 1{table t_with_ food} BID hydrALAZIN E HCl 50 MG Sotalol HCl 80 MG Sotalol HCl 80 MG No 1{table t} BID Sotalol HCl 80 MG Allopurinol 100 MG Allopurinol 100 MG No Allopurino l 100 MG Tamsulosin HCl 0.4 MG Tamsulosin HCl 0.4 MG No 1{capsu le} QD Tamsulosin HCl 0.4 MG Ozempic (2 MG/DOSE) 8 MG/3ML Ozempic (2 MG/DOSE) 8 MG/3ML No Ozempic (2 MG/DOSE) 8 MG/3ML Rosuvastati n Calcium 20 MG Rosuvastati n Calcium 20 MG No 1{table t} QD Rosuvastat in Calcium 20 MG Vitamin B 12 250 MCG Vitamin B 12 250 MCG No QD Vitamin B 12 250 MCG Spironolact one 25 MG Spironolact one 25 MG No 1{table t} QD Spironolac tone 25 MG Furosemide 20 MG Furosemide 20 MG No 1{table t} QD Furosemide 20 MG Ondansetron HCl 4 MG Ondansetron HCl 4 MG No 1{table t} QD Ondansetro n HCl 4 MG Immunizations Ordered Immunization Name Filled Immunization Name Date Status Comments Source Moderna COVID-19 Vaccine Moderna COVID-19 Vaccine 2020-05-01 11:51:00 Completed [facility] Moderna COVID-19 Vaccine Moderna COVID-19 Vaccine 2020-05-01 11:51:00 Completed [facility] Moderna COVID-19 Vaccine Moderna COVID-19 Vaccine 2020-05-01 11:51:00 Completed [facility] Moderna COVID-19 Vaccine Moderna COVID-19 Vaccine 2020-05-01 11:51:00 Completed [facility] Moderna COVID-19 Vaccine Moderna COVID-19 Vaccine 2020-05-01 11:51:00 Completed [facility] Moderna COVID-19 Vaccine Moderna COVID-19 Vaccine 2020-05-01 11:51:00 Completed [facility] Moderna COVID-19 Vaccine Moderna COVID-19 Vaccine 2020-05-01 11:51:00 Completed [facility] Moderna COVID-19 Vaccine Moderna COVID-19 Vaccine 2020-05-01 11:51:00 Completed [facility] Moderna COVID-19 Vaccine Moderna COVID-19 Vaccine 2020-04-02 11:50:00 Completed [facility] Moderna COVID-19 Vaccine Moderna COVID-19 Vaccine 2020-04-02 11:50:00 Completed [facility] Moderna COVID-19 Vaccine Moderna COVID-19 Vaccine 2020-04-02 11:50:00 Completed [facility] Moderna COVID-19 Vaccine Moderna COVID-19 Vaccine 2020-04-02 11:50:00 Completed [facility] Moderna COVID-19 Vaccine Moderna COVID-19 Vaccine 2020-04-02 11:50:00 Completed [facility] Moderna COVID-19 Vaccine Moderna COVID-19 Vaccine 2020-04-02 11:50:00 Completed [facility] Moderna COVID-19 Vaccine Moderna COVID-19 Vaccine 2020-04-02 11:50:00 Completed [facility] Moderna COVID-19 Vaccine Moderna COVID-19 Vaccine 2020-04-02 11:50:00 Completed [facility] FLUZONE HIGH DOSE OVER 65 FLUZONE HIGH DOSE OVER 65 2019-12-05 11:07:00 Completed [facility] FLUZONE HIGH DOSE OVER 65 FLUZONE HIGH DOSE OVER 65 2019-12-05 11:07:00 Completed [facility] FLUZONE HIGH DOSE OVER 65 FLUZONE HIGH DOSE OVER 65 2019-12-05 11:07:00 Completed [facility] FLUZONE HIGH DOSE OVER 65 FLUZONE HIGH DOSE OVER 65 2019-12-05 11:07:00 Completed [facility] FLUZONE HIGH DOSE OVER 65 FLUZONE HIGH DOSE OVER 65 2019-12-05 11:07:00 Completed [facility] FLUZONE HIGH DOSE OVER 65 FLUZONE HIGH DOSE OVER 65 2019-12-05 11:07:00 Completed [facility] FLUZONE HIGH DOSE OVER 65 FLUZONE HIGH DOSE OVER 65 2019-12-05 11:07:00 Completed [facility] FLUZONE HIGH DOSE OVER 65 FLUZONE HIGH DOSE OVER 65 2019-12-05 11:07:00 Completed [facility] Prevnar 20 (PCV20) Prevnar 20 (PCV20) Unknown Completed [facility] FluAD Quad SD FluAD Quad SD Unknown Completed [facility] Moderna COVID-19 Vaccine Moderna COVID-19 Vaccine Unknown Completed [facility] FLUZONE HIGH DOSE OVER 65 FLUZONE HIGH DOSE OVER 65 Unknown Completed [facility] Prevnar 20 (PCV20) Prevnar 20 (PCV20) Unknown Completed [facility] FluAD Quad SD FluAD Quad SD Unknown Completed [facility] Moderna COVID-19 Vaccine Moderna COVID-19 Vaccine Unknown Completed [facility] FLUZONE HIGH DOSE OVER 65 FLUZONE HIGH DOSE OVER 65 Unknown Completed [facility] Prevnar 20 (PCV20) Prevnar 20 (PCV20) Unknown Completed [facility] FluAD Quad SD FluAD Quad SD Unknown Completed [facility] Moderna COVID-19 Vaccine Moderna COVID-19 Vaccine Unknown Completed [facility] FLUZONE HIGH DOSE OVER 65 FLUZONE HIGH DOSE OVER 65 Unknown Completed [facility] Prevnar 20 (PCV20) Prevnar 20 (PCV20) Unknown Completed [facility] FluAD Quad SD FluAD Quad SD Unknown Completed [facility] Moderna COVID-19 Vaccine Moderna COVID-19 Vaccine Unknown Completed [facility] FLUZONE HIGH DOSE OVER 65 FLUZONE HIGH DOSE OVER 65 Unknown Completed [facility] Prevnar 20 (PCV20) Prevnar 20 (PCV20) Unknown Completed [facility] FluAD Quad SD FluAD Quad SD Unknown Completed [facility] Moderna COVID-19 Vaccine Moderna COVID-19 Vaccine Unknown Completed [facility] FLUZONE HIGH DOSE OVER 65 FLUZONE HIGH DOSE OVER 65 Unknown Completed [facility] Prevnar 20 (PCV20) Prevnar 20 (PCV20) Unknown Completed [facility] Fluad (aIIV4) - SDS - 0.5mL Fluad (aIIV4) - SDS - 0.5mL Unknown Completed [facility] Moderna COVID-19 Vaccine Moderna COVID-19 Vaccine Unknown Completed [facility] FLUZONE HIGH DOSE OVER 65 FLUZONE HIGH DOSE OVER 65 Unknown Completed [facility] Prevnar 20 (PCV20) Prevnar 20 (PCV20) Unknown Completed [facility] Fluad (aIIV4) - SDS - 0.5mL Fluad (aIIV4) - SDS - 0.5mL Unknown Completed [facility] Moderna COVID-19 Vaccine Moderna COVID-19 Vaccine Unknown Completed [facility] FLUZONE HIGH DOSE OVER 65 FLUZONE HIGH DOSE OVER 65 Unknown Completed [facility] Prevnar 20 (PCV20) Prevnar 20 (PCV20) Unknown Completed [facility] Fluad (aIIV4) - SDS - 0.5mL Fluad (aIIV4) - SDS - 0.5mL Unknown Completed [facility] Moderna COVID-19 Vaccine Moderna COVID-19 Vaccine Unknown Completed [facility] FLUZONE HIGH DOSE OVER 65 FLUZONE HIGH DOSE OVER 65 Unknown Completed [facility] Prevnar 20 (PCV20) Prevnar 20 (PCV20) Unknown Completed [facility] Fluad (aIIV4) - SDS - 0.5mL Fluad (aIIV4) - SDS - 0.5mL Unknown Completed [facility] Moderna COVID-19 Vaccine Moderna COVID-19 Vaccine Unknown Completed [facility] FLUZONE HIGH DOSE OVER 65 FLUZONE HIGH DOSE OVER 65 Unknown Completed [facility] Prevnar 20 (PCV20) Prevnar 20 (PCV20) Unknown Completed [facility] Fluad (aIIV4) - SDS - 0.5mL Fluad (aIIV4) - SDS - 0.5mL Unknown Completed [facility] Moderna COVID-19 Vaccine Moderna COVID-19 Vaccine Unknown Completed [facility] FLUZONE HIGH DOSE OVER 65 FLUZONE HIGH DOSE OVER 65 Unknown Completed [facility] Prevnar 20 (PCV20) Prevnar 20 (PCV20) Unknown Completed [facility] Fluad (aIIV4) - SDS - 0.5mL Fluad (aIIV4) - SDS - 0.5mL Unknown [facility] Moderna COVID-19 Vaccine Unknown Completed [facility] FLUZONE HIGH DOSE OVER 65 FLUZONE HIGH DOSE OVER 65 Unknown Completed [facility] Vital Signs Vital Name Observation Time Observation Value Comments S ource height 2023-12-21 07:50:00 71 [in_i] Commo n [facility] weight 2023-12-21 07:50:00 230 [lb_av] Comm on [facility] bmi 2023-12-21 07:50:00 32.07 kg/m2 Comm on [facility] height 2023-11-09 10:00:00 71 [in_i] Commo n [facility] weight 2023-11-09 10:00:00 237 [lb_av] Comm on [facility] temperature 2023-11-09 10:00:00 97.3 [degF] Com mon [facility] bmi 2023-11-09 10:00:00 33.05 kg/m2 Comm on [facility] oximetry 2023-11-09 10:00:00 98 % Commo n [facility] respiratory rate 2023-11-09 10:00:00 16 /min [facility] blood pressure systolic 2023-11-09 10:00:00 122 mm[Hg] [facility] blood pressure diastolic 2023-11-09 10:00:00 68 mm[Hg] [facility] height 2023-08-06 13:20:00 71 [in_i] Commo n [facility] weight 2023-08-06 13:20:00 251 [lb_av] Comm on [facility] temperature 2023-08-06 13:20:00 97.4 [degF] Com mon [facility] bmi 2023-08-06 13:20:00 35 kg/m2 Commo n [facility] oximetry 2023-08-06 13:20:00 98 % Commo n [facility] respiratory rate 2023-08-06 13:20:00 16 /min [facility] blood pressure systolic 2023-08-06 13:20:00 126 mm[Hg] [facility] blood pressure diastolic 2023-08-06 13:20:00 68 mm[Hg] [facility] height 2023-08-06 13:20:00 71 [in_i] Commo n [facility] weight 2023-08-06 13:20:00 251 [lb_av] Comm on [facility] temperature 2023-08-06 13:20:00 97.4 [degF] Com [facility] bmi 2023-08-06 13:20:00 35 kg/m2 Commo n [facility] oximetry 2023-08-06 13:20:00 98 % Commo n [facility] respiratory rate 2023-08-06 13:20:00 16 /min Common [facility] blood pressure systolic 2023-08-06 13:20:00 126 mm[Hg] [facility] blood pressure diastolic 2023-08-06 13:20:00 68 mm[Hg] [facility] height 2023-04-23 11:40:00 71 [in_i] Commo n [facility] weight 2023-04-23 11:40:00 245 [lb_av] Comm on [facility] bmi 2023-04-23 11:40:00 34.17 kg/m2 Comm on [facility] height 2022-12-28 15:00:00 71 [in_i] Commo n [facility] weight 2022-12-28 15:00:00 249 [lb_av] Comm on [facility] temperature 2022-12-28 15:00:00 96.5 [degF] Com mon [facility] bmi 2022-12-28 15:00:00 34.72 kg/m2 Comm on [facility] oximetry 2022-12-28 15:00:00 97 % Commo n [facility] respiratory rate 2022-12-28 15:00:00 16 /min [facility] blood pressure systolic 2022-12-28 15:00:00 130 mm[Hg] [facility] blood pressure diastolic 2022-12-28 15:00:00 74 mm[Hg] Common [facility] height 2022-10-28 15:20:00 71 [in_i] Commo n [facility] weight 2022-10-28 15:20:00 243 [lb_av] Comm on [facility] temperature 2022-10-28 15:20:00 97.1 [degF] Com mon [facility] bmi 2022-10-28 15:20:00 33.89 kg/m2 Comm on [facility] oximetry 2022-10-28 15:20:00 99 % Commo n [facility] respiratory rate 2022-10-28 15:20:00 16 /min [facility] blood pressure systolic 2022-10-28 15:20:00 130 mm[Hg] [facility] blood pressure diastolic 2022-10-28 15:20:00 72 mm[Hg] Common [facility] height 2022-09-28 15:40:00 71 [in_i] Commo n [facility] weight 2022-09-28 15:40:00 247 [lb_av] Comm on [facility] temperature 2022-09-28 15:40:00 97.5 [degF] Com mon [facility] bmi 2022-09-28 15:40:00 34.45 kg/m2 Comm on [facility] oximetry 2022-09-28 15:40:00 98 % Commo n [facility] respiratory rate 2022-09-28 15:40:00 16 /min [facility] blood pressure systolic 2022-09-28 15:40:00 132 mm[Hg] [facility] blood pressure diastolic 2022-09-28 15:40:00 78 mm[Hg] [facility] height 2022-08-28 15:20:00 71 [in_i] Commo n [facility] weight 2022-08-28 15:20:00 249 [lb_av] Comm on [facility] temperature 2022-08-28 15:20:00 97.2 [degF] Com [facility] bmi 2022-08-28 15:20:00 34.72 kg/m2 Comm on [facility] oximetry 2022-08-28 15:20:00 99 % Commo n [facility] respiratory rate 2022-08-28 15:20:00 16 /min Common [facility] blood pressure systolic 2022-08-28 15:20:00 122 mm[Hg] [facility] blood pressure diastolic 2022-08-28 15:20:00 70 mm[Hg] [facility] height 2022-05-27 14:00:00 71 [in_i] Commo n [facility] weight 2022-05-27 14:00:00 244 [lb_av] Comm on [facility] temperature 2022-05-27 14:00:00 97.6 [degF] Com mon [facility] bmi 2022-05-27 14:00:00 34.03 kg/m2 Comm on [facility] oximetry 2022-05-27 14:00:00 98 % Commo n [facility] respiratory rate 2022-05-27 14:00:00 16 /min Common [facility] blood pressure systolic 2022-05-27 14:00:00 134 mm[Hg] [facility] blood pressure diastolic 2022-05-27 14:00:00 78 mm[Hg] [facility] height 2022-05-27 14:40:00 71 [in_i] Commo n [facility] weight 2022-05-27 14:40:00 244 [lb_av] Comm on [facility] temperature 2022-05-27 14:40:00 97.6 [degF] Com mon [facility] bmi 2022-05-27 14:40:00 34.03 kg/m2 Comm on [facility] oximetry 2022-05-27 14:40:00 98 % Commo n [facility] respiratory rate 2022-05-27 14:40:00 16 /min Common [facility] blood pressure systolic 2022-05-27 14:40:00 134 mm[Hg] [facility] blood pressure diastolic 2022-05-27 14:40:00 78 mm[Hg] [facility] height 2021-12-31 13:20:00 71 [in_i] Commo n [facility] weight 2021-12-31 13:20:00 246.2 [lb_av] Co mmon [facility] temperature 2021-12-31 13:20:00 97.8 [degF] Com mon [facility] bmi 2021-12-31 13:20:00 34.33 kg/m2 Comm on [facility] oximetry 2021-12-31 13:20:00 97 % Commo n [facility] respiratory rate 2021-12-31 13:20:00 17 /min Common [facility] blood pressure systolic 2021-12-31 13:20:00 124 mm[Hg] [facility] blood pressure diastolic 2021-12-31 13:20:00 63 mm[Hg] [facility] height 2021-11-20 08:00:00 71 [in_i] Commo n [facility] weight 2021-11-20 08:00:00 250 [lb_av] Comm on [facility] temperature 2021-11-20 08:00:00 98.6 [degF] Com mon [facility] bmi 2021-11-20 08:00:00 34.86 kg/m2 Comm on [facility] height 2021-08-19 09:40:00 71 [in_i] Commo n [facility] weight 2021-08-19 09:40:00 257.6 [lb_av] Co mmon [facility] temperature 2021-08-19 09:40:00 97.8 [degF] Com [facility] bmi 2021-08-19 09:40:00 35.92 kg/m2 Comm on [facility] oximetry 2021-08-19 09:40:00 98 % Commo n [facility] respiratory rate 2021-08-19 09:40:00 17 /min Common [facility] blood pressure systolic 2021-08-19 09:40:00 128 mm[Hg] [facility] blood pressure diastolic 2021-08-19 09:40:00 76 mm[Hg] [facility] height 2021-07-09 15:00:00 71 [in_i] Commo n [facility] weight 2021-07-09 15:00:00 259.8 [lb_av] Co mmon [facility] temperature 2021-07-09 15:00:00 97.9 [degF] Com [facility] bmi 2021-07-09 15:00:00 36.23 kg/m2 Comm on [facility] oximetry 2021-07-09 15:00:00 98 % Commo n [facility] respiratory rate 2021-07-09 15:00:00 16 /min Common [facility] blood pressure systolic 2021-07-09 15:00:00 128 mm[Hg] [facility] blood pressure diastolic 2021-07-09 15:00:00 72 mm[Hg] [facility] height 2021-05-27 13:00:00 71 [in_i] Commo n [facility] weight 2021-05-27 13:00:00 259.4 [lb_av] Co mmon [facility] temperature 2021-05-27 13:00:00 98.1 [degF] Com [facility] bmi 2021-05-27 13:00:00 36.18 kg/m2 Comm on [facility] oximetry 2021-05-27 13:00:00 97 % Commo n [facility] respiratory rate 2021-05-27 13:00:00 16 /min Common [facility] blood pressure systolic 2021-05-27 13:00:00 142 mm[Hg] [facility] blood pressure diastolic 2021-05-27 13:00:00 80 mm[Hg] Common [facility] height 2021-04-28 15:40:00 71 [in_i] Commo n [facility] weight 2021-04-28 15:40:00 264.0 [lb_av] Co mmon [facility] temperature 2021-04-28 15:40:00 97.9 [degF] Com mon [facility] bmi 2021-04-28 15:40:00 36.82 kg/m2 Comm on [facility] oximetry 2021-04-28 15:40:00 97 % Commo n [facility] respiratory rate 2021-04-28 15:40:00 18 /min Common [facility] blood pressure systolic 2021-04-28 15:40:00 138 mm[Hg] [facility] blood pressure diastolic 2021-04-28 15:40:00 74 mm[Hg] [facility] height 2021-01-08 14:20:00 71 [in_i] Commo n [facility] weight 2021-01-08 14:20:00 269 [lb_av] Comm on [facility] temperature 2021-01-08 14:20:00 97.1 [degF] Com mon [facility] bmi 2021-01-08 14:20:00 37.51 kg/m2 Comm on [facility] oximetry 2021-01-08 14:20:00 97 % Commo n [facility] respiratory rate 2021-01-08 14:20:00 16 /min [facility] blood pressure systolic 2021-01-08 14:20:00 124 mm[Hg] [facility] blood pressure diastolic 2021-01-08 14:20:00 80 mm[Hg] [facility] Encounters Start Date/Time End Date/Time Encounter Type Admission Type Attending Clinicians Care Facility Care Department Encounter ID Source 2022-01-05 14:08:[address] [facility] [id number] [facility] 2021-12-30 08:21:[address] [facility] [id number] [facility] 2021-11-18 07:19:00 Outpatient VillalpandoCrissy [facility] [id number] [facility] 2021-08-15 15:22:00 Outpatient VillalpandoCrissy [facility] [id number] [facility] 2021-07-10 08:37:01 Outpatient VillalpandoEvei [facility] [id number] [facility] 2021-07-07 14:02:01 Outpatient VillalpandoEvei [facility] [id number] [facility] 2021-05-23 09:30:01 Outpatient VillalpandoCrissy [facility] [id number] [facility] 2021-05-15 13:36:01 Outpatient VillalpandoCrissy [facility] [id number] [facility] 2021-04-25 11:06:01 Outpatient VillalpandoEvei [facility] [id number] [facility] 2021-04-11 08:20:00 Outpatient Alycia Hoffman [facility] [id number] [facility] 2021-04-04 13:56:00 Outpatient WilbargerAlycia mena [facility] [id number] [facility] 2021-03-26 14:13:45 Outpatient Alycia Hoffman [facility] [id number] [facility] 2021-03-26 14:10:24 Outpatient WilbargerAlycia mena [facility] [id number] [facility] 2021-03-26 14:07:08 Outpatient Wilbarger, Alycia [facility] [id number] [facility] 2021-03-26 12:28:12 Outpatient Alycia Hoffman [facility] [id number] [facility] 2021-03-26 11:29:17 Outpatient Alycia Hoffman [facility] [id number] [facility] 2023-12-21 00:00:00 2023-12-21 00:00:00 OFFICE VISIT ESTAB PT LEVEL 4 [facility] [id number] [facility] 2023-12-20 00:00:00 2023-12-20 00:00:00 (TEL) [facility] [id number] [facility] 2023-12-15 00:00:00 2023-12-15 00:00:00 (TEL) [facility] [id number] [facility] 2023-11-09 00:00:00 2023-11-09 00:00:00 OFFICE VISIT ESTAB PT LEVEL 4 [facility] [id number] [facility] 2023-08-09 00:00:00 2023-08-09 00:00:00 (TEL) [facility] [id number] [facility] 2023-08-06 00:00:00 2023-08-06 00:00:00 SUB ANNUAL [facility]LLNESS VISIT [facility] [id number] [facility] 2023-08-06 00:00:00 2023-08-06 00:00:00 OFFICE VISIT ESTAB PT LEVEL 4 [facility] [id number] [facility] 2023-04-23 00:00:00 2023-04-23 00:00:00 OFFICE VISIT ESTAB PT LEVEL 4 [facility] [id number] [facility] 2023-01-15 00:00:00 2023-01-15 00:00:00 (TEL) [facility] [id number] [facility] 2022-12-28 00:00:00 2022-12-28 00:00:00 OFFICE VISIT ESTAB PT LEVEL 4 [facility] [id number] [facility] 2022-10-28 00:00:00 2022-10-28 00:00:00 OFFICE VISIT ESTAB PT LEVEL 4 [facility] [id number] [facility] 2022-10-21 00:00:00 2022-10-21 00:00:00 (TEL) [facility] [id number] [facility] 2022-09-28 00:00:00 2022-09-28 00:00:00 OFFICE VISIT ESTAB PT LEVEL 4 [facility] [id number] [facility] 2022-08-28 00:00:00 2022-08-28 00:00:00 OFFICE VISIT ESTAB PT LEVEL 5 [facility] [id number] [facility] 2022-07-31 00:00:00 2022-07-31 00:00:00 (TEL) [facility] [id number] [facility] 2022-05-27 00:00:00 2022-05-27 00:00:00 SUB ANNUAL [facility] WELLNESS VISIT STLMLC STLMLC [id number] [facility] 2022-05-27 00:00:00 2022-05-27 00:00:00 OFFICE VISIT ESTAB PT LEVEL 4 STLMLC STLMLC [id number] [facility] 2022-04-02 00:00:00 2022-04-02 00:00:00 (TEL) STLMLC STLMLC [id number] [facility] 2021-12-31 00:00:00 2021-12-31 00:00:00 (TEL) STLMLC STLMLC [id number] [facility] 2021-12-31 00:00:00 2021-12-31 00:00:00 OFFICE VISIT EST PT LEVEL 3 STLMLC STLMLC [id number] [facility] 2021-12-23 00:00:00 2021-12-23 00:00:00 (TEL) STLMLC STLMLC [id number] [facility] 2021-11-21 00:00:00 2021-11-21 00:00:00 (TEL) STLMLC STLMLC [id number] [facility] 2021-11-20 00:00:00 2021-11-20 00:00:00 OFFICE VISIT ESTAB PT LEVEL 4 STLMLC STLMLC [id number] [facility] 2021-11-14 00:00:00 2021-11-14 00:00:00 (TEL) STLMLC STLMLC [id number] [facility] 2021-09-11 00:00:00 2021-09-11 00:00:00 (TEL) STLMLC STLMLC [id number] [facility] 2021-09-11 00:00:00 2021-09-11 00:00:00 (TEL) STLMLC STLMLC [id number] [facility] 2021-08-27 00:00:00 2021-08-27 00:00:00 (TEL) STLMLC STLMLC [id number] [facility] 2021-08-19 00:00:00 2021-08-19 00:00:00 OFFICE VISIT EST PT LEVEL 3 STLMLC STLMLC [id number] [facility] 2021-07-09 00:00:00 2021-07-09 00:00:00 OFFICE VISIT ESTAB PT LEVEL 4 STLMLC STLMLC [id number] [facility] 2021-05-27 00:00:00 2021-05-27 00:00:00 OFFICE VISIT ESTAB PT LEVEL 4 STLMLC STLMLC [id number] [facility] 2021-04-28 00:00:00 2021-04-28 00:00:00 OFFICE VISIT ESTAB PT LEVEL 4 STLMLC STLMLC [id number] [facility] 2021-01-08 00:00:00 2021-01-08 00:00:00 OFFICE VISIT ESTAB PT LEVEL 4 STLMLC STLMLC [id number] [facility] 2020-11-13 00:00:00 2020-11-13 00:00:00 Outpatient STLMLC STLMLC [id number] [facility] 2020-10-01 00:00:00 2020-10-01 00:00:00 Outpatient STLMLC STLMLC [id number] [facility] 2020-07-17 00:00:00 2020-07-17 00:00:00 Outpatient STLMLC STLMLC [id number] [facility] 2020-06-25 00:00:00 2020-06-25 00:00:00 Outpatient STLMLC STLMLC [id number] [facility] 2020-03-27 00:00:00 2020-03-27 00:00:00 Outpatient STLMLC STLMLC [id number] [facility] 2019-12-05 00:00:00 2019-12-05 00:00:00 Outpatient STLMLC STLMLC [id number] [facility] 2019-09-04 08:20:00 2019-09-04 08:20:[address] [facility] [id number] [facility] 2019-03-06 08:00:00 2019-03-06 08:00:00 [facility] [id number] [facility] 2018-10-03 10:15:00 2018-10-03 10:15:00 [facility] [id number] [facility] 2018-08-30 13:00:00 2018-08-30 13:00:00 [facility] [id number] [facility] 2018-06-17 09:30:00 2018-06-17 09:30:00 [facility] [id number] [facility] 2018-02-16 08:30:00 2018-02-16 08:30:[address] [facility] [facility] [id number] [facility] Results Test Description Test Time Test Comments Results Result Co mments Source HEMOGLOBIN [id number] 00:00:00* Test Item Value Reference Range Interpretation Comme nts A1C (test code = 4548-4) 7.9 COMPREHENSIVE METABOLIC PANEL(CMP)2022-09-15 00:00:00* Test Item Value Reference Range Interpretation Comme nts ALBUMIN (test code = 1751-7) 3.5 g/dL See_Comment L [Automated messa ge] The system which generated this result transmitted reference range: 3.6-5.1 g/dL. The reference range was not used to interpret this result as normal/abnormal. ALBUMIN/GLOBULIN RATIO (test code = 1759-0) 1.1 (calc) See_Comment N [Automated messa ge] The system which generated this result transmitted reference range: 1.0-2.5 (calc). The reference range was not used to interpret this result as normal/abnormal. ALKALINE PHOSPHATASE (test code = 6768-6) 67 U/L See_Comment N [Automated message] The system which generated this result transmitted reference range: 35-144 U/L. The reference range was not used to interpret this result as normal/abnormal. ALT (test code = 1742-6) 12 U/L See_Comment N [Automated messa ge] The system which generated this result transmitted reference range: 9-46 U/L. The reference range was not used to interpret this result as normal/abnormal. AST (test code = 1920-8) 10 U/L See_Comment N [Automated messa ge] The system which generated this result transmitted reference range: 10-35 U/L. The reference range was not used to interpret this result as normal/abnormal. BILIRUBIN, TOTAL (test code = 1975-2) 0.5 mg/dL See_Comment N [Automated message] The system which generated this result transmitted reference range: 0.2-1.2 mg/dL. The reference range was not used to interpret this result as normal/abnormal. BUN/CREATININE RATIO (test code = 3097-3) 12 (calc) See_Comment N [Automated message] The system which generated this result transmitted reference range: 6-22 (calc). The reference range was not used to interpret this result as normal/abnormal. CALCIUM (test code = 60321-8) 9.2 mg/dL See_Comment N [Automated messa ge] The system which generated this result transmitted reference range: 8.6-10.3 mg/dL. The reference range was not used to interpret this result as normal/abnormal. CARBON DIOXIDE (test code = 2028-9) 24 mmol/L See_Comment N [Automated messa ge] The system which generated this result transmitted reference range: 20-32 mmol/L. The reference range was not used to interpret this result as normal/abnormal. CHLORIDE (test code = 2075-0) 105 mmol/L See_Comment N [Automated messa ge] The system which generated this result transmitted reference range: 98-110 mmol/L. The reference range was not used to interpret this result as normal/abnormal. CREATININE (test code = 2160-0) 2.67 mg/dL See_Comment H [Automated messa ge] The system which generated this result transmitted reference range: 0.70-1.28 mg/dL. The reference range was not used to interpret this result as normal/abnormal. GLOBULIN (test code = 89874-0) 3.2 g/dL (calc) See_Comment N [Automated message] The system which generated this result transmitted reference range: 1.9-3.7 g/dL (calc). The reference range was not used to interpret this result as normal/abnormal. GLUCOSE (test code = 2345-7) 138 mg/dL See_Comment H [Automated messa ge] The system which generated this result transmitted reference range: 65-99 mg/dL. The reference range was not used to interpret this result as normal/abnormal. POTASSIUM (test code = 2823-3) 4.1 mmol/L See_Comment N [Automated messa ge] The system which generated this result transmitted reference range: 3.5-5.3 mmol/L. The reference range was not used to interpret this result as normal/abnormal. PROTEIN, TOTAL (test code = 2885-2) 6.7 g/dL See_Comment N [Automated messa ge] The system which generated this result transmitted reference range: 6.1-8.1 g/dL. The reference range was not used to interpret this result as normal/abnormal. SODIUM (test code = 2951-2) 139 mmol/L See_Comment N [Automated messa ge] The system which generated this result transmitted reference range: 135-146 mmol/L. The reference range was not used to interpret this result as normal/abnormal. UREA NITROGEN (BUN) (test code = 3094-0) 31 mg/dL See_Comment H [Automated message] The system which generated this result transmitted reference range: 7-25 mg/dL. The reference range was not used to interpret this result as normal/abnormal. COMPREHENSIVE METABOLIC PANEL(CMP)2022-08-21 00:00:00* Test Item Value Reference Range Interpretation Comme nts ALBUMIN (test code = 1751-7) 3.9 g/dL See_Comment N [Automated messa ge] The system which generated this result transmitted reference range: 3.6-5.1 g/dL. The reference range was not used to interpret this result as normal/abnormal. ALBUMIN/GLOBULIN RATIO (test code = 1759-0) 1.1 (calc) See_Comment N [Automated messa ge] The system which generated this result transmitted reference range: 1.0-2.5 (calc). The reference range was not used to interpret this result as normal/abnormal. ALKALINE PHOSPHATASE (test code = 6768-6) 89 U/L See_Comment N [Automated message] The system which generated this result transmitted reference range: 35-144 U/L. The reference range was not used to interpret this result as normal/abnormal. ALT (test code = 1742-6) 13 U/L See_Comment N [Automated messa ge] The system which generated this result transmitted reference range: 9-46 U/L. The reference range was not used to interpret this result as normal/abnormal. AST (test code = 1920-8) 12 U/L See_Comment N [Automated messa ge] The system which generated this result transmitted reference range: 10-35 U/L. The reference range was not used to interpret this result as normal/abnormal. BILIRUBIN, TOTAL (test code = 1975-2) 0.5 mg/dL See_Comment N [Automated message] The system which generated this result transmitted reference range: 0.2-1.2 mg/dL. The reference range was not used to interpret this result as normal/abnormal. BUN/CREATININE RATIO (test code = 3097-3) 13 (calc) See_Comment N [Automated message] The system which generated this result transmitted reference range: 6-22 (calc). The reference range was not used to interpret this result as normal/abnormal. CALCIUM (test code = 05565-9) 9.8 mg/dL See_Comment N [Automated messa ge] The system which generated this result transmitted reference range: 8.6-10.3 mg/dL. The reference range was not used to interpret this result as normal/abnormal. CARBON DIOXIDE (test code = 8-9) 24 mmol/L See_Comment N [Automated messa ge] The system which generated this result transmitted reference range: 20-32 mmol/L. The reference range was not used to interpret this result as normal/abnormal. CHLORIDE (test code = 2075-0) 100 mmol/L See_Comment N [Automated messa ge] The system which generated this result transmitted reference range: 98-110 mmol/L. The reference range was not used to interpret this result as normal/abnormal. CREATININE (test code = 2160-0) 2.92 mg/dL See_Comment H [Automated messa ge] The system which generated this result transmitted reference range: 0.70-1.28 mg/dL. The reference range was not used to interpret this result as normal/abnormal. GLOBULIN (test code = 95438-7) 3.4 g/dL (calc) See_Comment N [Automated message] The system which generated this result transmitted reference range: 1.9-3.7 g/dL (calc). The reference range was not used to interpret this result as normal/abnormal. GLUCOSE (test code = 2345-7) 298 mg/dL See_Comment H [Automated messa ge] The system which generated this result transmitted reference range: 65-139 mg/dL. The reference range was not used to interpret this result as normal/abnormal. POTASSIUM (test code = 2823-3) 4.1 mmol/L See_Comment N [Automated messa ge] The system which generated this result transmitted reference range: 3.5-5.3 mmol/L. The reference range was not used to interpret this result as normal/abnormal. PROTEIN, TOTAL (test code = 2885-2) 7.3 g/dL See_Comment N [Automated messa ge] The system which generated this result transmitted reference range: 6.1-8.1 g/dL. The reference range was not used to interpret this result as normal/abnormal. SODIUM (test code = 2951-2) 133 mmol/L See_Comment L [Automated [employer]] The system which generated this result transmitted reference range: 135-146 mmol/L. The reference range was not used to interpret this result as normal/abnormal. UREA NITROGEN (BUN) (test code = 3094-0) 39 mg/dL See_Comment H [Automated message] The system which generated this result transmitted reference range: 7-25 mg/dL. The reference range was not used to interpret this result as normal/abnormal. HEMOGLOBIN [id number] 00:00:00* Test Item Value Reference Range Interpretation Comme nts A1C (test code = 4548-4) 8.1 HEMOGLOBIN [id number] 00:00:00* Test Item Value Reference Range Interpretation Comme nts A1C (test code = 4548-4) 8.8 ColonoscopyColonoscopy
[2023-12-23] MEDS ORDERED: PANTOPRAZOLE 40 MG INJ ONE (13:51)
[2023-12-23] MEDS ORDERED: NA CHLORIDE 0.9% 500 ML ONE (13:51)
[2023-12-23 14:11] LABS: Absolute Eosinophils 0.2 K/uL (0-0.5); Absolute Lymphocytes (CBC) 1.4 K/uL (0.7-4.9); Absolute Monocytes 0.7 K/uL (0.1-1.3); Absolute Neutrophil 7.9 K/uL (1.8-8.0); Basophils % 0.4 % (0-1.3); Eosinophils % 1.7 % (0-4.4); Hematocrit 34.8 % (39.6-49.0); Hemoglobin 11.7 g/dL (13.6-17.9); Lymphocytes % 13.7 % (15.3-44.8); MCH 29.5 pg (27.0-35.0); MCHC 33.6 g/dL (32.0-36.0); MCV 87.9 fL (80-100); MPV 8.3 fL (7.6-11.3); Monocytes % 6.9 % (3.3-12.3); Neutrophils % 77.3 % (41.7-73.7); Platelets 180 thou/uL (152-406); RBC Red Blood Cell Count 3.96 M/uL (4.33-5.43)
[2023-12-23] MEDS ORDERED: DIGOXIN 0.25 MG/ML AMP ONE ×2 (14:13→14:18)
[2023-12-23] MEDS ORDERED: MAGNESIUM SULFATE 1 gm IVPB 1 GM/100 ML BAG IV ONE (14:13)
[2023-12-23 14:18] LABS: PT Prothrombin Time 13.5 SECONDS (9.4-12.5); Protime INR 1.21
[2023-12-23 14:36] LABS: Albumin 2.7 g/dL (3.4-5.0); Albumin/Globulin Ratio 0.6 (1.1-1.8); Anion Gap 15.2 mEq/L (5.0-15.0); Bilirubin Direct 0.3 mg/dL (0-0.2); Bilirubin Indirect, Calculated 0.4 mg/dL (0.2-0.8); Bilirubin Total 0.7 mg/dL (0.2-1.0); Globulin 4.7 g/dL (2.3-3.5); Magnesium 2.8 mg/dL (1.6-2.4); Potassium 5.2 mEq/L (3.5-5.1); Protein, Total 7.4 g/dL (6.4-8.2); Thyroid Stimulating Hormone 0.831 uIU/mL (0.358-3.740)
[2023-12-23 14:45] LABS: Troponin High Sensitivity 209.3 pg/mL (<58.9)
--- NOTE | 2023-12-23 14:54 | RAD REPORT ---
EXAMINATION: ONE VIEW CHEST XR CLINICAL INDICATION: Male, 73 years old.,COUGH TECHNIQUE: Frontal chest projection is submitted. Examination is limited by patient positioning and t echnique. COMPARISON: 12/17/2021 FINDINGS: The lungs are well inflated and clear apart from stable mild central interstitial prominence. No pne umothorax or sizable effusion. The heart is normal in size. IMPRESSION: Stable mild central interstitial prominence, may reflect mild central congestion or edema.
--- NOTE | 2023-12-23 15:16 | RAD REPORT ---
EXAM: CT brain without contrast HISTORY: SYNCOPE COMPARISON: 03/03/2018 TECHNIQUE: Multiple contiguous axial images were obtained and a CT of the brain without contrast. Sag ittal and coronal reformats were performed. FINDINGS: No evidence of hydrocephalus, intracranial hemorrhage, or extra-axial fluid collection. Right subinsular 1.1 cm ovoid lesion approaching CSF density, suggesting prominent perivascular space , stable. Mild brain atrophy with mild periventricular and deep white matter chronic microvascular ischemic changes present. The calvarium is intact. The visualized paranasal sinuses and mastoid air cells are essentially clear . IMPRESSION: No evidence of acute intracranial abnormality. EXAM: CT of the cervical spine without contrast HISTORY: SYNCOPE COMPARISON: None TECHNIQUE: Multiple contiguous axial images were obtained in a CT of the cervical spine without contr ast. Sagittal and coronal reformats were performed. FINDINGS: The vertebral bodies demonstrate normal height and alignment. No evidence of acute fracture or subluxation.. Degenerative changes most pronounced at C5-6, with disc height loss, endplate and uncovertebral joint spurring contributing to mild bilateral neural foraminal narrowing at that level. No prevertebral soft tissue swelling is seen. The posterior facets are well aligned. Normal alignment of the skull base with the cervical spine is seen. The lung apices are unremarkable. IMPRESSION: No evidence of acute osseous abnormality of the cervical spine. Degenerative changes at C5-6 contribu ting to mild bilateral neural foraminal narrowing.
--- NOTE | 2023-12-23 16:06 | RAD REPORT ---
EXAM: CT CHEST, ABDOMEN AND PELVIS WITHOUT CONTRAST CLINICAL INDICATION: Male, [address] [facility] DYSPNEA Bed Name: 4 TECHNIQUE: CT chest, abdomen and pelvis was performed, without IV contrast, as per department protoco l. Axial, sagittal and coronal reconstructions were obtained. One or more of the following dose reduction techniques were used: Automated exposure control, adjustment of the mA and/or kV according to the patient size, and/or iterative reconstruction. Unless otherwise specified, incidental findings do not require dedicated imaging follow-up. COMPARISON: 12/17/2021 FINDINGS: The lack of intravenous contrast limits the sensitivity of this exam for evaluation of solid visceral organs, vascular structures, and retroperitoneum. Chest: LOWER NECK/CHEST WALL: Visualized thyroid gland and soft tissues are normal. LUNGS AND AIRWAYS: Airways are clear. No evidence of airspace or interstitial process. No nodules. PLEURA: No pleural effusion. No pneumothorax. Hemidiaphragms are normally positioned. MEDIASTINUM AND LYMPH NODES: No mediastinal mass or fluid collection. Normal size mediastinal, hilar, and axillary lymph nodes. THORACIC AORTA: Normal caliber and configuration. PULMONARY ARTERIES: Normal caliber. HEART: Unremarkable. Abdomen/Pelvis LIVER: Normal in size and contour. No focal lesion. GALLBLADDER/BILE DUCTS: Numerous gallstones within a contracted gallbladder, appearance is similar to a prior exam. PANCREAS: No mass, ductal dilation, or feliz-pancreatic fluid. SPLEEN: Normal size. Stable ovoid posterior hypoattenuating 1.3 cm lesion, could represent a cyst or hemangioma. ADRENALS: Normal; no mass. KIDNEYS AND URETERS: Atrophic changes of both kidneys. Cortical 1.8 cm right lower pole cyst, not wel l evaluated, but appears. No hydronephrosis. GASTROINTESTINAL TRACT: Stomach is non-dilated. Small bowel has normal course and caliber. No colonic wall thickening or pericolonic inflammatory changes. PERITONEUM: Mild free pelvic and left flank ascites. LYMPH NODES: Prominent epigastric and reyes hepatis lymph nodes, measuring up to 1.8 cm in short axis . ABDOMINAL AORTA AND OTHER VESSELS: Normal caliber aorta and IVC. URINARY BLADDER: Normal contour. REPRODUCTIVE ORGANS: No pathologic process. MUSCULOSKELETAL: No acute or suspicious osseous abnormality. ADDITIONAL FINDINGS: None IMPRESSION: Prominent epigastric and reyes hepatis lymph nodes, nonspecific, suggest an ongoing infectious or inf lammatory process. Mild free ascites. Other stable findings as above.
--- NOTE | 2023-12-23 16:58 | EDPHYS ---
Physician Documentation [facility] Name: Win Zheng Age: 73 yrs Sex: Male : 1950 Arrival Date: 12/23/2023 Time: 13:36 Bed 4 Private MD: ED Physician Morro Diaz HPI: 12/22 16:48 This 73 yrs old Black Male presents to ER via EMS with complaints of Syncope. qing 16:48 The patient has experienced syncope, collapsed, The patient has experienced qing near-syncope. Onset: The symptoms/episode began/occurred just prior to arrival. Duration: The patient has had multiple episodes, that last an unknown period of time. Context: the episode(s) was witnessed, by family, . Associated injury: The patient did not suffer any apparent associated injury. Associated signs and symptoms: The patient has no apparent associated signs or symptoms. Current symptoms: headache, that is mild. The patient has not experienced similar symptoms in the past. Historical: - Allergies: 13:45 No Known Allergies; rs5 - PMHx: 13:45 Diabetes - NIDDM; Atrial Fib; Hyperlipidemia; Hypertension; Cirrhosis of liver; rs5 - PSHx: 13:45 None; rs5 - Immunization history:: Adult Immunizations up to date. - Infectious Disease History:: Denies. - Social history:: Smoking status: Patient denies any tobacco usage or history of. ROS: 16:50 Constitutional: Negative for fever, chills, and weight loss, Eyes: Negative for injury, qing pain, redness, and discharge, ENT: Negative for injury, pain, and discharge, Neck: Negative for injury, pain, and swelling, Respiratory: Negative for shortness of breath, cough, wheezing, and pleuritic chest pain, Back: Negative for injury and pain, : Negative for injury, bleeding, discharge, and swelling, MS/Extremity: Negative for injury and deformity, Skin: Negative for injury, rash, and discoloration, Neuro: Negative for headache, weakness, numbness, tingling, and seizure, Psych: Negative for depression, anxiety, suicide ideation, homicidal ideation, and hallucinations, Allergy/Immunology: Negative for hives, rash, and allergies, Endocrine: Negative for neck swelling, polydipsia, polyuria, polyphagia, and marked weight changes, Hematologic/Lymphatic: Negative for swollen nodes, abnormal bleeding, and unusual bruising, 16:50 Cardiovascular: Positive for chest pain, palpitations, 16:50 Abdomen/GI: Positive for abdominal pain, abdominal distension, Exam: 16:50 Constitutional: This is a well developed, well nourished patient who is awake, alert, qing and in no acute distress. Head/Face: Normocephalic, atraumatic. Eyes: Pupils equal round and reactive to light, extra-ocular motions intact. Lids and lashes normal. Conjunctiva and sclera are non-icteric and not injected. Cornea within normal limits. Periorbital areas with no swelling, redness, or edema. ENT: Nares patent. No nasal discharge, no septal abnormalities noted. Tympanic membranes are normal and external auditory canals are clear. Oropharynx with no redness, swelling, or masses, exudates, or evidence of obstruction, uvula midline. Mucous membranes moist. Neck: Trachea midline, no thyromegaly or masses palpated, and no cervical lymphadenopathy. Supple, full range of motion without nuchal rigidity, or vertebral point tenderness. No Meningismus. Chest/axilla: Normal chest wall appearance and motion. Nontender with no deformity. No lesions are appreciated. Respiratory: Lungs have equal breath sounds bilaterally, clear to auscultation and percussion. No rales, rhonchi or wheezes noted. No increased work of breathing, no retractions or nasal flaring. Back: No spinal tenderness. No costovertebral tenderness. Full range of motion. Male : Normal genitalia with no discharge or lesions. Skin: Warm, dry with normal turgor. Normal color with no rashes, no lesions, and no evidence of cellulitis. MS/ Extremity: Pulses equal, no cyanosis. Neurovascular intact. Full, normal range of motion. Neuro: Awake and alert, GCS 15, oriented to person, place, time, and situation. Cranial nerves II-XII grossly intact. Motor strength 5/5 in all extremities. Sensory grossly intact. Cerebellar exam normal. Normal gait. Psych: Awake, alert, with orientation to person, place and time. Behavior, mood, and affect are within normal limits. 16:50 Cardiovascular: Rate: tachycardic, actual rate is 145 bpm, Rhythm: regular, Pulses: Pulses are 4+ in bilateral radial, brachial, femoral, popliteal, posterior tibial and and dorsalis pedis arteries.. Heart sounds: normal, Edema: is not appreciated, JVD: is not appreciated, 16:50 ECG was reviewed by the Attending Physician. 16:52 ECG was reviewed by the Attending Physician. [facility] Vital Signs: 13:41 BP 112 / 82; Pulse 145; Resp 18; Pulse Ox 96% on R/A; rs5 14:46 BP 115 / 74; Pulse 110; Resp 17; Pulse Ox 97% on R/A; rs5 14:58 BP 112 / 72; Pulse 94; Resp 18; Pulse Ox 96% on R/A; rs5 15:20 BP 117 / 77; Pulse 74; Resp 17; Pulse Ox 99% on R/A; rs5 16:41 BP 120 / 81; Pulse 77; Resp 17; Pulse Ox 98% on R/A; rs5 18:02 Weight 96.8 kg (M); rs5 18:49 BP 135 / 74; Pulse 71; Resp 16; Pulse Ox 99% on R/A; rs5 20:00 BP 149 / 63; Pulse 70; Resp 19; Pulse Ox 99% ; vc1 MDM: 13:42 Medical Screening Exam initiated [facility] 12/22 13:45 Order name: Basic Metabolic Panel; Complete Time: 14:50 [facility] 12/22 13:45 Order name: CBC with Diff; Complete Time: 14:31 [facility] 12/22 13:45 Order name: LFT's; Complete Time: 14:50 [facility] 12/22 13:45 Order name: Magnesium; Complete Time: 14:50 [facility] 12/22 13:45 Order name: NT PRO-BNP; Complete Time: 14:50 [facility] 12/22 13:45 Order name: PT-INR; Complete Time: 14:31 [facility] 12/22 13:45 Order name: Troponin HS; Complete Time: 14:50 [facility] 12/22 13:45 Order name: Urinalysis w/ reflexes 12/22 13:45 Order name: AMMONIA; Complete Time: 14:31 [facility] 12/22 13:45 Order name: TSH; Complete Time: 14:50 [facility] 12/22 18:02 Order name: Ptt, Activated rs5 12/22 19:18 Order name: PTT, Activated Partial Thromb EDMS 12/22 13:45 Order name: XRAY Chest (1 view); Complete Time: 15:26 [facility] 12/22 13:45 Order name: CT Head C Spine; Complete Time: 15:26 qing 12/22 13:45 Order name: CT Chest Abdomen Pelvis W/O Contrast; Complete Time: 16:42 qing 12/22 17:46 Order name: Echo without Doppler (2D) EDPA 12/22 14:31 Order name: EKG; Complete Time: 14:31 qing 12/22 13:45 Order name: Cardiac monitoring; Complete Time: 13:58 qing 12/22 13:45 Order name: EKG - Nurse/Tech; Complete Time: 13:58 qing 12/22 13:45 Order name: IV Saline Lock; Complete Time: 13:58 qing 12/22 13:45 Order name: Labs collected and sent; Complete Time: 13:58 qing 12/22 13:45 Order name: O2 Per Protocol; Complete Time: 13:58 qing 12/22 13:45 Order name: O2 Sat Monitoring; Complete Time: 13:58 qing 12/22 13:45 Order name: IV Saline Lock - Large Bore; Complete Time: 13:51 qing 12/22 14:31 Order name: EKG - Nurse/Tech; Complete Time: 14:58 qing EC:50 Rate is 145 beats/min. Rhythm is regular. QRS Hunter is Normal. KY interval is normal. qing QRS interval is normal. QT interval is normal. No Q waves. T waves are Normal. No ST changes noted. Clinical impression: Atrial Flutter. Interpreted by me. Reviewed by me. 16:52 Rate is 66 beats/min. Rhythm is irregularly irregular. QRS Hunter is Normal. KY interval qing is normal. QRS interval is normal. QT interval is normal. No Q waves. T waves are Normal. No ST changes noted. Clinical impression: Atrial Fibrillation. Interpreted by me. Reviewed by me. Administered Medications: 13:58 Drug: NS 0.9% IV 500 ml 500 ml IV at 1 bolus once; to be given as a bolus over 30 rs5 minutes Volume: 500 ml; Route: IV; Rate: 1 bolus; Site: right antecubital; 14:40 Follow up: Response: No adverse reaction; IV Status: Completed infusion; IV Intake: rs5 500ml 13:58 Drug: Pantoprazole IVP 40 mg IVP once Route: IVP; Site: right antecubital; rs5 14:20 Follow up: Response: No adverse reaction rs5 14:10 Drug: Magnesium Sulfate IVPB 1 grams IVPB once over 1 hrs Route: IVPB; Infused Over: 1 rs5 hrs; Site: right antecubital; 15:00 Follow up: Response: No adverse reaction; IV Status: Completed infusion; IV Intake: rs5 100ml 14:10 Drug: Digoxin IVP 0.5 mg IVP once Route: IVP; Site: right antecubital; rs5 15:00 Follow up: Response: No adverse reaction; Cardiac rhythm changed rs5 14:45 Not Given (Patient Refused): ns 0.9% 1000 ml IV at 125 ml/hr continuous rs5 17:22 Drug: Kayexalate PO 30 grams PO once Route: PO; iw 18:01 Follow up: Response: No adverse reaction rs5 17:22 Drug: Metoprolol PO 50 mg PO once Route: PO; iw 18:04 Follow up: Response: No adverse reaction rs5 18:30 Drug: Heparin (CT-Bolus with thrombolytic) - HEParin IVP 60 units/kg IVP once; Max 4000 rs5 units {Co-Signature: lucero (Joelle Zheng RN).} Route: IVP; Site: right antecubital; 19:20 Follow up: Response: No adverse reaction ha1 18:30 Drug: Heparin (CT Drip) 12 units/kg/[place] - ([place] [address] units, D5W IV 500 ml) IV at rs5 calculated rate Per protocol; Max initial rate 1000 units/hr {Co-Signature: lucero (Joelle Zheng RN).} Route: IV; Rate: calculated rate; Site: right antecubital; 21:30 Follow up: Response: No adverse reaction; IV Status: Infusion continued upon admission ha1 18:48 Drug: Aspirin PO Chewable Tablet 81 mg PO once Route: PO; rs5 20:38 Follow up: Response: No adverse reaction vc1 Disposition Summary: 12/23/23 16:57 Hospitalization Ordered Notes: Hospitalization Status: Inpatient Admission qing Provider: Ibrahima Henrandez cha Location: Telemetry/MedSurg (Inpatient) qing Condition: Fair qing Problem: new qing Symptoms: have improved qing Bed/Room Type: Standard qing Room Assignment: 403(12/23/23 18:11) bc6 Diagnosis - Typical atrial flutter - 2:1 qing - Paroxysmal atrial fibrillation - with rvr qing - Other acute kidney failure - chronic qing - Syncope Near - many episides qing - Other cirrhosis of liver qing Forms: - Medication Reconciliation Form qing - SBAR form qing - Leadership Thank You Letter qing Signatures: Dispatcher [employer] EDMS Morro Diaz MD MD cha Williams, Irene, RN RN iw Monty Teresa, STRIPPER APPRENTICE-C STRIPPER APPRENTICE-Cla1 Glen Leal RN RN rs5 Melinda Dee 6 Dilma De La Cruz RN vc1 Laurie Nava RN ha1 Joelle Zheng RN iw Corrections: (The following items were deleted from the chart) 13:46 13:46 BASIC METABOLIC PANEL+C.LAB.BRZ ordered. EDMS EDMS 13:46 13:46 CBC+H.LAB.BRZ ordered. EDMS EDMS 13:46 13:46 HEPATIC FUNCTION+C.LAB.BRZ ordered. EDMS EDMS 13:46 13:46 MAGNESIUM+C.LAB.BRZ ordered. EDMS EDMS 13:46 13:46 PROBNP+C.LAB.BRZ ordered. EDMS EDMS 13:46 13:46 PROTIME (+INR)+COAG.LAB.BRZ ordered. EDMS EDMS 13:46 13:46 Troponin High Sensitivity+C.LAB.BRZ ordered. EDMS EDMS 13:46 13:46 Urinalysis+U.LAB.BRZ ordered. EDMS EDMS 13:46 13:46 AMMONIA+C.LAB.BRZ ordered. EDMS EDMS 13:46 13:46 THYROID STIMULAT HORMONE+C.LAB.BRZ ordered. EDMS EDMS 13:46 13:46 Chest Single View+RAD.RAD.BRZ ordered. EDMS EDMS 13:46 13:46 Head C Spine MPR Wo Con+CT.RAD.BRZ ordered. EDMS EDMS 13:46 13:46 Chest Abdomen Pelvis Wo Con+CT.RAD.BRZ ordered. EDMS EDMS 18:11 16:57 qing bc6
--- NOTE | 2023-12-23 16:58 | ER ---
Nurse's Notes [facility] Name: Win Zheng Age: 73 yrs Sex: Male : 1950 Arrival Date: 12/23/2023 Time: 13:36 Bed 4 Private MD: Diagnosis: Typical atrial flutter-2:1;Paroxysmal atrial fibrillation- with rvr;Other acute kidney failure-chronic;Syncope Near-many episides;Other cirrhosis of liver Presentation: 12/22 13:41 Chief complaint: EMS states: GI center toned out EMS for two syncopal episodes lasting rs5 less than 15 seconds, pt was scheduled for a paracentesis but did not receive it due to syncopal episodes. Pt experienced syncopal episodes in a chair and did not fall, denies chest pain, SOB, pt was tachycardic on arrival. Coronavirus screen: At this time, the client does not indicate any symptoms associated with coronavirus-19. Ebola Screen: No symptoms or risks identified at this time. Initial Sepsis Screen: Does the patient meet any 2 criteria? HR > 90 bpm. Yes Does the patient have a suspected source of infection? No. Patient's initial sepsis screen is negative. Risk Assessment: Do you want to hurt yourself or someone else? Patient reports no desire to harm self or others. Onset of symptoms was December 23, 2023. 13:41 Method Of Arrival: EMS: [facility] rs5 13:41 Acuity: RHONA 3 rs5 13:41 Care prior to arrival: IV initiated. 18 GA, in the right antecubital area. rs5 Triage Assessment: 13:45 General: Appears in no apparent distress. comfortable, Behavior is calm, cooperative. rs5 Pain: Denies pain. Historical: - Allergies: 13:45 No Known Allergies; rs5 - PMHx: 13:45 Diabetes - NIDDM; Atrial Fib; Hyperlipidemia; Hypertension; Cirrhosis of liver; rs5 - PSHx: 13:45 None; rs5 - Immunization history:: Adult Immunizations up to date. - Infectious Disease History:: Denies. - Social history:: Smoking status: Patient denies any tobacco usage or history of. Screenin:44 [facility] ED Fall Risk Assessment (Adult) History of falling in the last 3 months, rs5 including since admission No falls in past 3 months (0 pts) Confusion or Disorientation No (0 pts) Intoxicated or Sedated No (0 pts) Impaired Gait No (0 pts) Mobility Assist Device Used No (0 pt) Altered Elimination No (0 pt) Score/Fall Risk Level 0 - 2 = Low Risk Oriented to surroundings, Maintained a safe environment. Abuse screen: Denies threats or abuse. Nutritional screening: No deficits noted. Tuberculosis screening: No symptoms or risk factors identified. Assessment: 13:44 General: Appears in no apparent distress. comfortable, Behavior is calm, cooperative. rs5 Pain: Denies pain. Neuro: Level of Consciousness is awake, alert, obeys commands, Oriented to person, place, time, situation. Cardiovascular: Patient's skin is warm and dry. Respiratory: Airway is patent Respiratory effort is even, unlabored, Respiratory pattern is regular, symmetrical. GI: Abdomen is distended. : No signs and/or symptoms were reported regarding the genitourinary system. EENT: No signs and/or symptoms were reported regarding the EENT system. Derm: Skin is intact, Skin is pink, warm \T\ dry. Musculoskeletal: Range of motion: intact in all extremities. 14:58 Reassessment: Patient and/or family updated on plan of care and expected duration. Pain rs5 level reassessed. Patient is alert, oriented x 3, equal unlabored respirations, skin warm/dry/pink. 16:01 Reassessment: Patient and/or family updated on plan of care and expected duration. Pain rs5 level reassessed. Patient is alert, oriented x 3, equal unlabored respirations, skin warm/dry/pink. 16:40 Reassessment: No changes from previously documented assessment. rs5 17:45 Reassessment: Patient and/or family updated on plan of care and expected duration. Pain rs5 level reassessed. Patient is alert, oriented x 3, equal unlabored respirations, skin warm/dry/pink. 18:48 Reassessment: Patient and/or family updated on plan of care and expected duration. Pain rs5 level reassessed. Patient is alert, oriented x 3, equal unlabored respirations, skin warm/dry/pink. 20:29 General: spoke with Eloisa PEREZ, will fax report. vc1 Vital Signs: 13:41 BP 112 / 82; Pulse 145; Resp 18; Pulse Ox 96% on R/A; rs5 14:46 BP 115 / 74; Pulse 110; Resp 17; Pulse Ox 97% on R/A; rs5 14:58 BP 112 / 72; Pulse 94; Resp 18; Pulse Ox 96% on R/A; rs5 15:20 BP 117 / 77; Pulse 74; Resp 17; Pulse Ox 99% on R/A; rs5 16:41 BP 120 / 81; Pulse 77; Resp 17; Pulse Ox 98% on R/A; rs5 18:02 Weight 96.8 kg (M); rs5 18:49 BP 135 / 74; Pulse 71; Resp 16; Pulse Ox 99% on R/A; rs5 20:00 BP 149 / 63; Pulse 70; Resp 19; Pulse Ox 99% ; vc1 ED Course: 13:41 Patient arrived in ED. rs5 13:42 Morro Diaz MD is Attending Physician. qing 13:44 Patient has correct armband on for positive identification. Placed in gown. Bed in low rs5 position. Call light in reach. Side rails up X2. 13:44 No provider procedures requiring assistance completed. rs5 13:45 Triage completed. rs5 13:50 Glen Leal, RN is Primary Nurse. rs5 14:13 XRAY Chest (1 view) In Process Unspecified. EDMS 14:29 CT Head C Spine In Process Unspecified. EDMS 14:29 CT Chest Abdomen Pelvis W/O Contrast In Process Unspecified. EDMS 16:55 Ibrahima Hernandez MD is Hospitalizing Provider. qing 17:15 1715 CM attempted to conduct initial assessment, nurse at bedside administering ane medication. 1720 CM attempted to conduct initial assessment, provider YOSELYN Millan at bedside discussing plan of care. 1736 CM met with , his Deana and his daughter Kaylan at the bedside in the ED exam group. Patient reports that prior to admission, he performs ADLs independently. No DME in the home, no HH, no home oxygen, or other medical services at this time. Patient's PCP is Dr. Crissy Villalpando. Patient states his band teacher is . states has informed him that he she wishes to initiate dialysis. No MPOA in place. Patient states he wishes to return home upon discharge. Kaylan states she will transport him home. CM team will continue to follow and coordinate care during this hospital stay. 18:49 Provided Education on: need for admit. rs5 18:49 Patient admitted, IV remains in place. rs5 Administered Medications: 13:58 Drug: NS 0.9% IV 500 ml 500 ml IV at 1 bolus once; to be given as a bolus over 30 rs5 minutes Volume: 500 ml; Route: IV; Rate: 1 bolus; Site: right antecubital; 14:40 Follow up: Response: No adverse reaction; IV Status: Completed infusion; IV Intake: rs5 500ml 13:58 Drug: Pantoprazole IVP 40 mg IVP once Route: IVP; Site: right antecubital; rs5 14:20 Follow up: Response: No adverse reaction rs5 14:10 Drug: Magnesium Sulfate IVPB 1 grams IVPB once over 1 hrs Route: IVPB; Infused Over: 1 rs5 hrs; Site: right antecubital; 15:00 Follow up: Response: No adverse reaction; IV Status: Completed infusion; IV Intake: rs5 100ml 14:10 Drug: Digoxin IVP 0.5 mg IVP once Route: IVP; Site: right antecubital; rs5 15:00 Follow up: Response: No adverse reaction; Cardiac rhythm changed rs5 14:45 Not Given (Patient Refused): ns 0.9% 1000 ml IV at 125 ml/hr continuous rs5 17:22 Drug: Kayexalate PO 30 grams PO once Route: PO; iw 18:01 Follow up: Response: No adverse reaction rs5 17:22 Drug: Metoprolol PO 50 mg PO once Route: PO; iw 18:04 Follow up: Response: No adverse reaction rs5 18:30 Drug: Heparin (IN-Bolus with thrombolytic) - HEParin IVP 60 units/kg IVP once; Max 4000 rs5 units {Co-Signature: lucero (Joelle Zheng RN).} Route: IVP; Site: right antecubital; 19:20 Follow up: Response: No adverse reaction ha1 18:30 Drug: Heparin (IN Drip) 12 units/kg/[place] - ([place] [address] units, D5W IV 500 ml) IV at rs5 calculated rate Per protocol; Max initial rate 1000 units/hr {Co-Signature: lucero (Joelle Zheng RN).} Route: IV; Rate: calculated rate; Site: right antecubital; 21:30 Follow up: Response: No adverse reaction; IV Status: Infusion continued upon admission ha1 18:48 Drug: Aspirin PO Chewable Tablet 81 mg PO once Route: PO; rs5 20:38 Follow up: Response: No adverse reaction vc1 Medication: 13:59 VIS not applicable for this client. rs5 Intake: 14:40 IV: 500ml; Total: 500ml. rs5 15:00 IV: 100ml; Total: 600ml. rs5 Outcome: 16:57 Decision to Hospitalize by Provider. [facility] 18:49 Admitted to ER Hold. Please see [facility] for further documentation. rs5 18:49 Condition: stable 18:49 Instructed on the need for admit, Demonstrated understanding of instructions, 21:36 Patient left the ED. ha1 Signatures: Dispatcher [employer] EDMS Morro Diaz MD MD cha Williams, Irene, RN RN iw Calcote, Vanessa, RN RN 1 Laurie Nava RN RN 1 Glen Leal RN RN rs5 Dipika Burt RN RN ane Williams, Irene RN iw
[2023-12-23] MEDS ORDERED: SOD POLYSTYREN SUL 15 GM/60 ML UCUP ONE (17:14)
[2023-12-23] MEDS ORDERED: METOPROLOL TAR 50 MG TAB ONE (17:14)
--- NOTE | 2023-12-23 17:56 | P.HP ---
Certification for Inpatient Patient admitted to: Inpatient With expected LOS: >2 Midnights Patient will require the following post-hospital care: None Practitioner: I am a practitioner with admitting privileges, knowledge of patient current condition, hospital course, and medical plan of care. Services: Services provided to patient in accordance with Admission requirements found in Title 42 Section 412.3 of the Code of Federal Regulations Patient History Date of Service: 12/23/23 Reason for admission: Afib RVR, syncope History of Present Illness: 73-year-old male with history of atrial fibrillation, insulin-dependent diabetes, hypertension, hyperlipidemia, CKD, cirrhosis of liver, chronic diastolic congestive heart failure presents to the emergency department chief complaint of syncope. He had gone to the GI clinic for evaluation of possible ascites had a syncopal episode in the seated position, he reports feeling a little dizzy before the episode, EMS was called and patient was brought to the hospital. Upon arrival to the hospital he was in A-fib RVR with rates in 140s. He was given NS, Mag, IV Dig, PO metoprolol and his rate improved. His labs were significant for a sodium of 148 potassium was 5.2 bicarb is 17 creatinine 5.39 GFR 10 high-sensitivity troponin was 209.3 CT chest abdomen pelvis was performed which showed prominent epigastric and reyes hepatis nodes, nonspecific suggesting ongoing infectious or inflammatory process. Mild free ascites. Read wishes to meet patient to hospital for further management of his syncopal episode, CARL with hyperkalemia, elevated troponin and A-fib RVR Allergies No Known Allergies Allergy (Unverified 05/10/13 08:57) Home Medications: Cholecalciferol (Vitamin D3) [Vitamin D3] 1 cap PO DAILY 03/04/18 Cyanocobalamin [Vitamin B-12*] 500 mg PO DAILY AT SUPPER 03/04/18 Furosemide [Lasix] 40 mg PO DAILY 03/04/18 Hydralazine [Apresoline] 50 mg PO BID 03/04/18 Na Bicarb Tab [Sodium Bicarb 325 MG] 650 mg PO DAILY 03/04/18 Simvastatin 40 mg PO BEDTIME 03/04/18 Sotalol HCl [Betapace] 80 mg PO BIDWM 03/04/18 Spironolactone [Aldactone] 25 mg PO BIDWM 03/04/18 Terazosin HCl 2 mg PO BEDTIME 03/04/18 allopurinoL [Zyloprim] 300 mg PO DAILY 03/04/18 Dabigatran Etexilate Mesylate [Pradaxa*] 75 mg PO DAILY 12/18/21 Insulin Glargine,Hum.rec.anlog [Lantus Solostar] 10 unit SQ BEDTIME 12/18/21 Multivit-Min/Folic/Vit K/Lycop [Men's 50 Plus Multivitamin Tab] 1 each PO BEDTIME 12/18/21 Terazosin HCl 2 mg PO BEDTIME 12/18/21 - Past Medical/Surgical History Diabetic: Yes -: Afib -: Anemia -: CKD -: Diabetes -: Hypertension -: CHF-diastolic -: Cirrhosis Psychosocial/ Personal History: Patient is . Lives at home with his - Family History Father -: Hypertension, Diabetes Mother -: Hypertension - Social History Alcohol use: Yes CD- Drugs: No Caffeine use: Yes Place of Residence: Home Review of Systems 10-point ROS is otherwise unremarkable Cardiovascular: Other (syncope) Physical Examination - Physical Exam General: Alert, In no apparent distress, Oriented x3 HEENT: Atraumatic, PERRLA, EOMI Neck: Supple, 2+ carotid pulse no bruit, No LAD Respiratory: Clear to auscultation bilaterally, Normal air movement Cardiovascular: Normal S1 S2, Irregular heart rate/rhythm (afib, rate 80s) Gastrointestinal: Normal bowel sounds, Distended Musculoskeletal: No tenderness Integumentary: No rashes Neurological: Normal gait, Normal speech, Normal strength at 5/5 x4 extr, Normal tone - Studies Laboratory Data (last 24 hrs) 12/23/23 12/23/23 12/23/23 13:57 13:57 13:57 WBC 10.20 Hgb 11.7 L Hct 34.8 L Plt Count 180 PT 13.5 H INR 1.21 Sodium 148 H Potassium 5.2 H BUN 76 H Creatinine 5.39 H Glucose 146 H Magnesium 2.8 H Total Bilirubin 0.7 AST 19 ALT 25 Alkaline Phosphatase 139 H Assessment and Plan - Plan Assessment: Syncope A-fib RVR with history of A-fib NSTEMI CARL on CKD with hyperkalemia Chronic diastolic congestive heart failure Cirrhosis Hypertension Hyperlipidemia Plan: Syncope A-fib RVR with history of A-fib NSTEMI Rate improved with digoxin, metoprolol, given p.o. metoprolol in ED Continue monitoring telemetry, will obtain echocardiogram and cardiology consultation Trend troponins, continue heparin drip CARL on CKD with hyperkalemia Nephrology consult Reportedly had discussed renal replacement therapies with arabic teacher about a month ago Given Kayexalate in ED for hyperkalemia Gentle IV fluids overnight Chronic diastolic congestive heart failure Does not appear grossly overloaded, continue home medications once verified Gentle IV fluids overnight Cirrhosis Hypertension Hyperlipidemia Continue home medications when verified DVT PPX:Heparin drip Code status:Full code Discharge Plan: Home Plan to discharge in: Greater than 2 days - Advance Directives Does patient have a Living Will: No Does patient have a Durable POA for Healthcare: No Critical Care: No Time Spent Managing Pts Care (In Minutes): 70
[2023-12-23] MEDS ORDERED: ASPIRIN 81 MG CHEWABLE TABLET ONE (18:06)
[2023-12-23] MEDS ORDERED: HEPARIN 5000 UNIT/ML 1 ML VIAL ONE (18:06)
[2023-12-23] MEDS ORDERED: HEPARIN/D5W 25,000 UNIT/500 ML BAG IV ONE (18:07)
[2023-12-23] MEDS: INSULIN REGULAR (HUMAN) 100 UNIT/ML SQ SCH (21:21)
[2023-12-23 21:40] VITALS: BMI 30.5
[2023-12-23] MEDS: NACHLORIDE 0.45% 1,000 ML IV SCH (21:58)
[2023-12-24] MEDS: allopurinoL 100 MG TAB PO SCH (08:26)
[2023-12-24] MEDS: ROSUVASTATIN 10 MG TAB PO SCH (08:26)
[2023-12-24] MEDS: TAMSULOSIN 0.4 MG SR CAP PO SCH (08:26)
[2023-12-24] MEDS: HYDRALAZINE HCL 25 MG TABLET PO SCH (08:26)
[2023-12-24] MEDS: METOPROLOL TAR 50 MG TAB PO SCH (08:27)
[2023-12-24 08:30] LABS: Absolute Eosinophils 0.1 K/uL (0-0.5); Absolute Monocytes 0.6 K/uL (0.1-1.3); Absolute Neutrophil 6.7 K/uL (1.8-8.0); Basophils % 0.4 % (0-1.3); Eosinophils % 1.3 % (0-4.4); Hematocrit 33.3 % (39.6-49.0); Hemoglobin 11.1 g/dL (13.6-17.9); Lymphocytes % 11.9 % (15.3-44.8); MCH 29.1 pg (27.0-35.0); MCHC 33.2 g/dL (32.0-36.0); MCV 87.7 fL (80-100); MPV 8.2 fL (7.6-11.3); Monocytes % 7.6 % (3.3-12.3); Neutrophils % 78.8 % (41.7-73.7); Platelets 178 thou/uL (152-406); Red Cell Distribution Width 15.1 % (12.1-15.2)
[2023-12-24 09:33] LABS: Albumin 2.6 g/dL (3.4-5.0); Albumin/Globulin Ratio 0.6 (1.1-1.8); Anion Gap 12.8 mEq/L (5.0-15.0); Bilirubin Total 0.7 mg/dL (0.2-1.0); Globulin 4.5 g/dL (2.3-3.5); Magnesium 3.1 mg/dL (1.6-2.4); Phosphorus 4.3 mg/dL (2.5-4.9); Potassium 4.8 mEq/L (3.5-5.1); Protein, Total 7.1 g/dL (6.4-8.2); Thyroid Stimulating Hormone 0.529 uIU/mL (0.358-3.740); Uric Acid 11.8 mg/dL (3.5-7.2)
--- NOTE | 2023-12-24 10:35 | P.CNS ---
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 Maloney, a hx of hypertension, and some reports of diastolic dysfunction, unspecified Afib on AC/other. Pt had a possible syncopal episode yesterday from seated position, no fall. He was found to have Afib with RVR with rates in 140s. He was given NS, Mag, IV Dig, PO metoprolol per reports and his rate improved. He reports today reduced appetite, nausea when attempting to eat and some weight loss over the past few weeks. He denies any chest pressure or dyspnea currently. He is on a heparin drip with his Afib history and NSTEMI Allergies No Known Allergies Allergy (Unverified 05/10/13 08:57) Home Medications: Furosemide [Lasix] 20 mg PO DAILY 03/04/18 Hydralazine [Apresoline] 50 mg PO BID 03/04/18 Na Bicarb Tab [Sodium Bicarb 325 MG] 325 mg PO BID 03/04/18 Spironolactone [Aldactone] 25 mg PO DAILY 03/04/18 allopurinoL [Zyloprim] 100 mg PO DAILY 03/04/18 Dabigatran Etexilate Mesylate [Pradaxa*] 75 mg PO BID 12/18/21 Insulin Glargine,Hum.rec.anlog [Lantus Solostar] 10 unit SQ BEDTIME 12/18/21 Colchicine 1 tab PO DAILY PRN 12/24/23 Rosuvastatin Calcium [Crestor] 1 tab PO DAILY 12/24/23 Semaglutide [Ozempic] 1 mg SQ EVERY 7TH DAY 12/24/23 Tamsulosin [Flomax*] 1 tab PO DAILY 12/24/23 - Past Medical/Surgical History Diabetic: Yes -: Afib -: Anemia -: CKD V under the care Dr. Maloney -: Diabetes -: Hypertension -: CHF-diastolic -: Cirrhosis Psychosocial/ Personal History: Patient is . Lives at home with his - Family History Father Medical History: Hypertension, Diabetes Mother Medical History: Hypertension - Social History Smoking Status: Never smoker Alcohol use: Yes CD- Drugs: No Caffeine use: Yes Place of Residence: Home Review of Systems General: Weakness, As per HPI Eyes: Unremarkable ENT: Unremarkable Respiratory: Unremarkable Cardiovascular: As per HPI Gastrointestinal: Nausea, Vomiting, As per HPI Genitourinary: Unremarkable Musculoskeletal: Unremarkable Integumentary: Unremarkable Neurological: As per HPI Physical Examination Temp Pulse Resp BP Pulse Ox 97.0 F 84 16 154/81 H 96 12/24/23 08:00 12/24/23 08:27 12/24/23 08:00 12/24/23 08:27 12/24/23 08:00 General: In no apparent distress, Cooperative HEENT: Atraumatic, Normocephalic Neck: Supple Respiratory: Clear to auscultation bilaterally, Normal air movement Cardiovascular: No edema, Other (Tachy, irregular) Gastrointestinal: Soft and benign, No tenderness, No guarding, Other (mild distention) Musculoskeletal: No swelling, No contractures Integumentary: No rashes Neurological: Normal speech, Normal tone, Normal affect Laboratory Data (last 24 hrs) 12/23/23 12/23/23 12/23/23 13:57 13:57 13:57 WBC 10.20 Hgb 11.7 L Hct 34.8 L Plt Count 180 PT 13.5 H INR 1.21 Sodium 148 H Potassium 5.2 H BUN 76 H Creatinine 5.39 H Glucose 146 H Magnesium 2.8 H Total Bilirubin 0.7 AST 19 ALT 25 Alkaline Phosphatase 139 H Conclusions/Impression: A/P) 1. Stage III ARF per EVAN definition as Cr level > 4 mg/dl but on underlying ad vanced CKD, Stage V essentially with eGFR < 15 ml/min late summer on OP labs and with progressive GFR loss over the past 1.5-2 years. Pre dialysis planning had been discussed as OP 2. ARF component in the setting of some vol depletion, dehydration on diuretic therapy and with reduced PO intake, GI losses. Cont gentle hydration. 3. Hypernatremia, metab acidosis -switch NS IVF to 75 meq sodium bicarb in D5W 4. Mod azotemia. N/V. Unclear if early uremia vs other, GLP-1 RA effect or even diabetic gastroparesis but CT scan did not show distended stomach. May need to consider sooner initiation of HD on this admission. Pt interested in in center HD 5. NSTEMI, Afib with RVR -will f/u Cardiology reccs, if pt needs ischemic heart disease eval then will need to initiate HD first. Pt was also on Pradaxa AC at home and that agent is not recommended in low CrCl states and there are other DOAC avail
[2023-12-24 10:42] LABS: Hepatitis B Core Ab, Total Nonreactive (Nonreactive); Hepatitis B surface AG Interp. Nonreactive (Nonreactive)
[2023-12-24 10:44] LABS: Hepatitis B Surface Ab - Quant < 3.10 mIU/mL (<8.0)
[2023-12-24 10:45] LABS: HBsAG Nonreactive Report Report
[2023-12-24] MEDS: D5W 1,000 ML with NA BICARB 8.4% 75 MEQ IV SCH (10:50)
--- NOTE | 2023-12-24 13:27 | ECHO ---
HEIGHT: 5 ft 10 in WEIGHT: 213 lb 0 oz DATE OF STUDY: 12/24/[address]: Monty Teresa NP 2-DIMENSIONAL: YES M.MODE: YES DOPPLER: YES COLOR FLOW: YES TDS: PORTABLE: YES DEFINITY: BUBBLE STUDY: DIAGNOSIS: SYNCOPE, ELEVATED TROPONIN, ATRIAL FIBRILLATION CARDIAC HISTORY: CATHERIZATION: SURGERY: PROSTHETIC VALVE: PACEMAKER: MEASUREMENTS (cm) DIASTOLIC (NORMALS) SYSTOLIC (NORMALS) IVSd 1.4 (0.6-1.2) LA Diam 4.4 (1.9-4.0) LVEF 60-65% LVIDd 4.0 (3.5-5.7) LVIDs 2.2 (2.0-3.5) %FS LVPWd 1.5 (0.6-1.2) Ao Diam 2.8 (2.0-3.7) 2 DIMENSIONAL ASSESSMENT: RIGHT ATRIUM: NORMAL LEFT ATRIUM: NORMAL RIGHT VENTRICLE: NORMAL LEFT VENTRICLE: NORMAL TRICUSPID VALVE: TRACE TRICUSPID REGURGITATION MITRAL VALVE: TRACE MITRAL REGURGITATION PULMONIC VALVE: NORMAL AORTIC VALVE: NORMAL PERICARDIAL EFFUSION: NONE AORTIC ROOT: NORMAL LEFT VENTRICULAR WALL MOTION: NORMAL DOPPLER/COLOR FLOW: NORMAL COMMENTS: 1. MILD CONCENTRIC LEFT VENTRICULAR HYPERTROPHY 2. NORMAL LEFT VENTRICULAR SYSTOLIC FUNCTION, EJECTION FRACTION 60-65%, NORMAL WALL MOTION 3. NORMAL DIASTOLIC FUNCTION 4. NORMAL FILLING PRESSURE TECHNOLOGIST: NORMA JOHANSEN
--- NOTE | 2023-12-24 13:47 | P.CNS ---
Date of Consult: 12/24/23 Chief Complaint: Afib RVR, syncope History of Present Illness: Patient with PMH of atrial fibrillation, Advanced CKD, presented with Syncope, was found to be in AF RVR, denies any cardiac symptoms except that he he has poor po intake and feeling weak, no chest pain, no palpitations, no SOB, no ANTHONY. Allergies No Known Allergies Allergy (Unverified 05/10/13 08:57) Home medications list reviewed: Yes Home Medications: Furosemide [Lasix] 20 mg PO DAILY 03/04/18 Hydralazine [Apresoline] 50 mg PO BID 03/04/18 Na Bicarb Tab [Sodium Bicarb 325 MG] 325 mg PO BID 03/04/18 Spironolactone [Aldactone] 25 mg PO DAILY 03/04/18 allopurinoL [Zyloprim] 100 mg PO DAILY 03/04/18 Dabigatran Etexilate Mesylate [Pradaxa*] 75 mg PO BID 12/18/21 Insulin Glargine,Hum.rec.anlog [Lantus Solostar] 10 unit SQ BEDTIME 12/18/21 RX: Colchicine 1 tab PO DAILY PRN 12/24/23 RX: Rosuvastatin Calcium [Crestor] 1 tab PO DAILY 12/24/23 RX: Semaglutide [Ozempic] 1 mg SQ EVERY 7TH DAY 12/24/23 RX: Tamsulosin [Flomax*] 1 tab PO DAILY 12/24/23 - Past Medical/Surgical History Diabetic: Yes -: Afib -: Anemia -: CKD V under the care Dr. Maloney -: Diabetes -: Hypertension -: CHF-diastolic -: Cirrhosis Psychosocial/ Personal History: Patient is . Lives at home with his - Family History Father Medical History: Hypertension, Diabetes Mother Medical History: Hypertension - Social History Smoking Status: Never smoker Alcohol use: Yes CD- Drugs: No Caffeine use: Yes Place of Residence: Home Review of Systems 10-point ROS is otherwise unremarkable Physical Examination Temp Pulse Resp BP Pulse Ox 97.6 F 74 16 124/68 97 12/24/23 12:00 12/24/23 12:00 12/24/23 12:00 12/24/23 12:00 12/24/23 12:00 General: Alert, In no apparent distress HEENT: Atraumatic, PERRLA, Mucous membr. moist/pink, EOMI, Sclerae nonicteric Neck: Supple, 2+ carotid pulse no bruit, No LAD, Without JVD or thyroid abnormality Respiratory: Clear to auscultation bilaterally, Normal air movement Cardiovascular: Regular rate/rhythm, Normal S1 S2 Gastrointestinal: Normal bowel sounds, No tenderness Musculoskeletal: No tenderness Integumentary: No rashes Neurological: Normal gait, Normal speech, Normal tone, Normal affect Lymphatics: No axilla or inguinal lymphadenopathy Laboratory Data (last 24 hrs) 12/23/23 12/23/23 12/23/23 13:57 13:57 13:57 WBC 10.20 Hgb 11.7 L Hct 34.8 L Plt Count 180 PT 13.5 H INR 1.21 Sodium 148 H Potassium 5.2 H BUN 76 H Creatinine 5.39 H Glucose 146 H Magnesium 2.8 H Total Bilirubin 0.7 AST 19 ALT 25 Alkaline Phosphatase 139 H - Problems (1) NSTEMI (non-ST elevated myocardial infarction) Current Visit: Yes Status: Acute Plan: Patient denies chest pain, but enzymes are tending up, this still can be type 2 DE from RVR and acute on chronic CKD, however patient got multiple risk factors for CAD and will benefit from coronary angiogram, the risk is that patient got advanced CKD and angiogram will worsen that up to the point that he will require dialysis. - Continue to trend enzymes until peak and down trending. - Continue Heparin drip - will re evaluate again over the weekend. (2) Atrial fibrillation with RVR Current Visit: No Status: Acute Plan: currently in Sinus rhythm - continue lopressor 50 mg po BID - continue heparin drip (will switch to Eliquis 2.5 mg po BID on discharge).
--- NOTE | 2023-12-24 14:14 | EKG ---
Test Date: 2023-12-23 Test Time: 14:55:46 Traffic Recorder: HERBER MEASUREMENT RESULTS: Intervals: Rate: 96 WA: 150 QRSD: 78 QT: 332 QTc: 419 [place]: P: -51 WA: 150 QRS: -28 T: -27 INTERPRETIVE STATEMENTS: Atrial fibrillation Nonspecific ST and T wave abnormality Abnormal ECG Compared to ECG 12/23/2023 13:49:32 ST (T wave) deviation now present Supraventricular tachycardia no longer present Left-axis deviation no longer present Myocardial infarct finding no longer present Electronically Signed On 12-24-23 14:12:06 CDT by Dk Rodriguez
--- NOTE | 2023-12-24 14:14 | EKG ---
Test Date: 2023-12-23 Test Time: 13:49:32 Food Supervisor: HERBER MEASUREMENT RESULTS: Intervals: Rate: 145 NH: QRSD: 78 QT: 314 QTc: 487 [place]: P: [place]: QRS: -43 T: 86 INTERPRETIVE STATEMENTS: Supraventricular tachycardia Left axis deviation Septal infarct, age undetermined Abnormal ECG Compared to ECG 12/17/2021 21:38:22 Sinus rhythm no longer present First degree AV block no longer present Myocardial infarct finding still present Electronically Signed On 12-24-23 14:12:23 CDT by Dk Rodriguez
--- NOTE | 2023-12-24 14:59 | P.PN ---
Date of Service: 12/24/23 Subjective: Doing well today Now in NSR family at bedside ROS: 10 point ROS as noted above, otherwise negative Physical exam GEN: Alert, oriented, NAD HEENT: Normal conjunctiva, sclera anicteric CV: Regular rate and rhythm, no edema Pulm: Nonlabored respirations on room air ABD: Soft, nontender, nondistended MSK: No joint tenderness Integumentary: No rashes Neuro: Normal speech, normal affect Vitals reviewed Assessment: Syncope A-fib RVR with history of A-fib NSTEMI CARL on CKD with hyperkalemia Chronic diastolic congestive heart failure Cirrhosis Hypertension Hyperlipidemia Plan: Syncope A-fib RVR with history of A-fib NSTEMI Rate improved with digoxin, metoprolol, given p.o. metoprolol in ED Continue monitoring telemetry, will obtain echocardiogram and cardiology consultation Trend troponins, continue heparin drip Continue metoprolol 50mg PO BID Once needing PO anticoagulation will switch from pradaxa to eliquis given CARL on CKD with hyperkalemia Nephrology consult Reportedly had discussed renal replacement therapies with tree scout about a month ago Given Kayexalate in ED for hyperkalemia Gentle IV fluids per nephrology Some improvement Chronic diastolic congestive heart failure Does not appear grossly overloaded, continue home medications once verified Gentle IV fluids overnight Cirrhosis Hypertension Hyperlipidemia Continue home medications when verified DVT PPX:Heparin drip Code status:Full code Discharge Plan: Home Plan to discharge in: Greater than 2 days Time Spent Managing Pts Care (In Minutes): 35
[2023-12-24] MEDS: AMLODIPINE 5 MG TAB PO SCH (20:14)
[2023-12-24] MEDS ORDERED: HYDRALAZINE HCL 25 MG TABLET PO SCH (21:00)
[2023-12-24] MEDS: HEPARIN/D5W 25,000 UNIT/500 ML BAG IV SCH (21:09)
[2023-12-25 06:52] LABS: Absolute Eosinophils 0.2 K/uL (0-0.5); Absolute Lymphocytes (CBC) 1.4 K/uL (0.7-4.9); Absolute Monocytes 0.7 K/uL (0.1-1.3); Absolute Neutrophil 6.9 K/uL (1.8-8.0); Basophils % 0.4 % (0-1.3); Eosinophils % 2.4 % (0-4.4); Hematocrit 32.3 % (39.6-49.0); Lymphocytes % 14.7 % (15.3-44.8); MCH 29.4 pg (27.0-35.0); MCV 86.4 fL (80-100); MPV 8.4 fL (7.6-11.3); Monocytes % 7.9 % (3.3-12.3); Neutrophils % 74.6 % (41.7-73.7); Nucleated Red Blood Cells % 0.1 % (0-0); Platelets 186 thou/uL (152-406); RBC Red Blood Cell Count 3.74 M/uL (4.33-5.43); Red Cell Distribution Width 14.5 % (12.1-15.2)
[2023-12-25 07:09] LABS: Albumin 2.4 g/dL (3.4-5.0); Albumin/Globulin Ratio 0.6 (1.1-1.8); Anion Gap 10.1 mEq/L (5.0-15.0); Bilirubin Total 0.5 mg/dL (0.2-1.0); Globulin 4.2 g/dL (2.3-3.5); Phosphorus 3.4 mg/dL (2.5-4.9); Potassium 4.1 mEq/L (3.5-5.1); Protein, Total 6.6 g/dL (6.4-8.2)
--- NOTE | 2023-12-25 11:29 | P.PN ---
Date of Service: 12/25/23 Subjective: Doing well today Now in NSR ROS: 10 point ROS as noted above, otherwise negative Physical exam GEN: Alert, oriented, NAD HEENT: Normal conjunctiva, sclera anicteric CV: Regular rate and rhythm, no edema Pulm: Nonlabored respirations on room air ABD: Soft, nontender, nondistended MSK: No joint tenderness Integumentary: No rashes Neuro: Normal speech, normal affect Vitals reviewed Assessment: Syncope A-fib RVR with history of A-fib NSTEMI CARL on CKD with hyperkalemia Chronic diastolic congestive heart failure Cirrhosis Hypertension Hyperlipidemia Plan: Syncope A-fib RVR with history of A-fib NSTEMI Rate improved with digoxin, metoprolol, given p.o. metoprolol in ED Continue monitoring telemetry, will obtain echocardiogram and cardiology consultation Trend troponins to peak, still trending up, continue heparin drip Denies chest pain Continue metoprolol 50mg PO BID Once needing PO anticoagulation will switch from pradaxa to eliquis given renal function CARL on CKD with hyperkalemia Nephrology consult Reportedly had discussed renal replacement therapies with bsa officer about a month ago Given Kayexalate in ED for hyperkalemia Gentle IV fluids per nephrology Some improvement with IVF Chronic diastolic congestive heart failure Does not appear grossly overloaded, continue home medications once verified Gentle IV fluids overnight Cirrhosis Hypertension Hyperlipidemia Continue home medications when verified DVT PPX:Heparin drip Code status:Full code Discharge Plan: Home Plan to discharge in: Greater than 2 days Time Spent Managing Pts Care (In Minutes): 35
[2023-12-25 15:21] LABS: Specific Gravity 1.015 (1.005-1.030); Sqamous Epithelial None Seen /HPF (None Seen); Urine Bacteria <20 /HPF (<20); Urine Bilirubin NEGATIVE (Negative); Urine Blood Negative (Negative); Urine Clarity Clear (Clear); Urine Color Light-Yellow (Yellow); Urine Culture Reflex Order NOT NEEDED; Urine Glucose NEGATIVE (Negative); Urine Ketones NEGATIVE (Negative); Urine Microscopic Reflex YN ORDER UMIC; Urine Mucus Slight /HPF (None Seen); Urine Nitrite NEGATIVE (Negative); Urine Protein 2+ (Negative); Urine RBC <5 /HPF (None Seen); Urine Urobilinogen Normal (Normal); Urine WBC <5 /HPF (<5); Urine pH 5.5 (5.0-7.0)
--- NOTE | 2023-12-25 16:39 | CON ---
Date of Consultation: 12/25/2023 History Of Present Illness: The patient was seen and examined at bedside. He is reporting that he i s having poor appetite and poor p.o. intake since the last 2 weeks. He has a bad taste in his mouth and unable to keep anything down. Physical Examination: Vital Signs: Showing temperature 97.2, pulse rate of 70, respiratory rate of 16, and blood pressure 125/63. General: He appears in no acute distress. Lungs: Clear to auscultation. Abdomen: Soft and nontender. Extremities: Showed no evidence of edema. Neuro: He is alert, awake, and oriented x3. Current Medications: Have been reviewed. Laboratory Data: Showing creatinine of 4.82, which is likely better than 5.3 at the time of admissio n. All other electrolytes are currently stable. CBC showing stable hemoglobin, hematocrit, and plat elet count. Impression: 1.[id number] renal insufficiency with possibly mild uremic symptoms. At this time, the patien t is having significant uremic symptoms. We will discuss with the patient regarding that and he is a greeable to start dialysis. I will go ahead and initiate a tunneled dialysis catheter placement and initiate him on dialysis on Wednesday. He does not have any emergent need, but will need to be started sooner than later. 2.Atrial fibrillation with RVR. Currently rate controlled with digoxin, metoprolol. Continue to mo nitor closely and will follow up. 3.Chronic diastolic heart failure, compensated. The patient remains on IV fluids at this time. IV fluids are not likely to improve his renal function. I will go ahead and discontinue IV fluids to pr event any further volume overload at this time and monitor him. We will discuss also with the primary team regarding initiating dialysis. VV/MODL Voice ID: [id number] Report ID: [id number]
[2023-12-26 04:45] LABS: Specific Gravity 1.016 (1.005-1.030); Sqamous Epithelial <5 /HPF (None Seen); Urine Bacteria None Seen /HPF (<20); Urine Bilirubin NEGATIVE (Negative); Urine Blood Negative (Negative); Urine Clarity Clear (Clear); Urine Color Light-Yellow (Yellow); Urine Culture Reflex Order NOT NEEDED; Urine Glucose NEGATIVE (Negative); Urine Ketones NEGATIVE (Negative); Urine Microscopic Reflex YN ORDER UMIC; Urine Nitrite NEGATIVE (Negative); Urine Protein 2+ (Negative); Urine RBC <5 /HPF (None Seen); Urine Urobilinogen Normal (Normal); Urine WBC <5 /HPF (<5); Urine pH 5.5 (5.0-7.0)
[2023-12-26 06:57] LABS: Absolute Eosinophils 0.3 K/uL (0-0.5); Absolute Monocytes 0.7 K/uL (0.1-1.3); Absolute Neutrophil 6.5 K/uL (1.8-8.0); Basophils % 0.4 % (0-1.3); Eosinophils % 3.2 % (0-4.4); Hematocrit 32.2 % (39.6-49.0); Hemoglobin 10.8 g/dL (13.6-17.9); Lymphocytes % 11.8 % (15.3-44.8); MCH 29.1 pg (27.0-35.0); MCHC 33.6 g/dL (32.0-36.0); MCV 86.7 fL (80-100); MPV 8.6 fL (7.6-11.3); Monocytes % 8.2 % (3.3-12.3); Neutrophils % 76.4 % (41.7-73.7); Platelets 198 thou/uL (152-406); RBC Red Blood Cell Count 3.71 M/uL (4.33-5.43); Red Cell Distribution Width 14.9 % (12.1-15.2)
[2023-12-26 07:12] LABS: Albumin 2.3 g/dL (3.4-5.0); Albumin/Globulin Ratio 0.5 (1.1-1.8); Anion Gap 8.1 mEq/L (5.0-15.0); Bilirubin Total 0.5 mg/dL (0.2-1.0); Globulin 4.3 g/dL (2.3-3.5); Magnesium 2.8 mg/dL (1.6-2.4); Phosphorus 3.4 mg/dL (2.5-4.9); Potassium 4.1 mEq/L (3.5-5.1); Protein, Total 6.6 g/dL (6.4-8.2)
[2023-12-26 07:19] LABS: Troponin High Sensitivity 1286.2 pg/mL (<58.9)
--- NOTE | 2023-12-26 10:45 | P.PN ---
Date of Service: 12/26/23 Subjective: Doing well today Now in NSR ROS: 10 point ROS as noted above, otherwise negative Physical exam GEN: Alert, oriented, NAD HEENT: Normal conjunctiva, sclera anicteric CV: Regular rate and rhythm, no edema Pulm: Nonlabored respirations on room air ABD: Soft, nontender, nondistended MSK: No joint tenderness Integumentary: No rashes Neuro: Normal speech, normal affect Vitals reviewed Assessment: Syncope A-fib RVR with history of A-fib NSTEMI CARL on CKD with hyperkalemia Chronic diastolic congestive heart failure Cirrhosis Hypertension Hyperlipidemia Plan: Syncope A-fib RVR with history of A-fib NSTEMI Continue PO metoprolol Continue monitoring telemetry, will obtain echocardiogram and cardiology consultation Troponins peaked at ~ 1300, continue heparin drip Denies chest pain Continue metoprolol 50mg PO BID Once needing PO anticoagulation will switch from pradaxa to eliquis given renal function CARL on CKD with hyperkalemia Nephrology consult Reportedly had discussed renal replacement therapies with dietary services director about a month ago Given Kayexalate in ED for hyperkalemia Gentle IV fluids per nephrology Some improvement with IVF Plan for HD cath insertion, likely Wednesday with Dr. Murillo Chronic diastolic congestive heart failure Does not appear grossly overloaded, continue home medications once verified Gentle IV fluids Cirrhosis Hypertension Hyperlipidemia Continue home medications when verified DVT PPX:Heparin drip Code status:Full code Discharge Plan: Home Plan to discharge in: Greater than 2 days Time Spent Managing Pts Care (In Minutes): 35
[2023-12-26] MEDS: ONDANSETRON 4 MG/2 ML VIAL IV PRN (13:05)
[2023-12-27] MEDS ORDERED: CEFAZOLIN SODIUM 2 GM in NA CHLORIDE 0.9% 100 ML IVPB SCH (08:00)
[2023-12-27 08:41] LABS: Absolute Eosinophils 0.2 K/uL (0-0.5); Absolute Lymphocytes (CBC) 1.1 K/uL (0.7-4.9); Absolute Monocytes 0.5 K/uL (0.1-1.3); Absolute Neutrophil 5.6 K/uL (1.8-8.0); Basophils % 0.5 % (0-1.3); Eosinophils % 2.9 % (0-4.4); Hematocrit 34.1 % (39.6-49.0); Lymphocytes % 14.4 % (15.3-44.8); MCH 28.4 pg (27.0-35.0); MCHC 32.3 g/dL (32.0-36.0); MCV 88.2 fL (80-100); MPV 8.7 fL (7.6-11.3); Monocytes % 7.3 % (3.3-12.3); Neutrophils % 74.9 % (41.7-73.7); Platelets 193 thou/uL (152-406); RBC Red Blood Cell Count 3.87 M/uL (4.33-5.43); Red Cell Distribution Width 14.9 % (12.1-15.2)
[2023-12-27 09:00] LABS: Albumin 2.5 g/dL (3.4-5.0); Albumin/Globulin Ratio 0.6 (1.1-1.8); Anion Gap 8.3 mEq/L (5.0-15.0); Bilirubin Total 0.5 mg/dL (0.2-1.0); Globulin 4.4 g/dL (2.3-3.5); Magnesium 2.9 mg/dL (1.6-2.4); Potassium 4.3 mEq/L (3.5-5.1); Protein, Total 6.9 g/dL (6.4-8.2)
--- NOTE | 2023-12-27 09:01 | CON ---
Date of Consultation: 12/26/2023 Reason For Consultation: Patient needs dialysis. History Of Present Illness: The patient is a 73-year-old gentleman who came in with weakness, AFib, RVR, and syncope. The patient has a rather long past medical history. Patient has acute renal failure on workup his workup. Patient did have elevated troponin on admission, however, it is trending down. He is on a heparin drip. He will need a cardiac cath after dialysis is initiated. He is awake, alert. He denies any chest pain right now. No fever or chills. No sore throat, runny nose, cough, headaches, or dizziness. Review of Systems: Otherwise, unremarkable. Past Medical History: Significant for AFib, insulin-dependent diabetes, hypertension, hyperlipidemia, cirrhosis of the liver, chronic diastolic congestive heart failure. Past Surgical History: Negative Allergies: NONE. Social History: The patient does drink alcohol. Denies smoking. Family History: Significant for diabetes and hypertension. Physical Examination: Vital Signs: Stable. Afebrile. General: Awake and alert. Head and neck: No masses. No JVD currently. Throat clear. Neck is supple. Chest: Clear. Heart: S1, S2. Abdomen: Soft. Extremities: Neurovascularly intact. Neuro: Nonfocal. Laboratory Data: Reviewed. White count is normal. H and H are 7.8 and 32.2, platelets are 198. INR is 1.21. Patient's troponin is trending down. The patient is on a heparin drip. His PTT is 48.7. BUN is 71, creatinine is 4.6, potassium is 4.1. Assessment: 73-year-old gentleman with multiple medical problems with acute renal failure requiring dialysis. Recommendation: We will place the dialysis catheter in tomorrow morning. Heparin will have to be stopped 4 hours prior. The risks, benefits, and alternatives were explained to the patient. He understands and agrees. Family is present at the bedside as well and plan of care was discussed in detail with the hospitalist team. /MODL Voice ID: [id number] Report ID: [id number] JARVIS
--- NOTE | 2023-12-27 10:18 | P.PN ---
Date of Service: 12/27/23 Subjective: Doing well today Now in NSR No acute events overnight ROS: 10 point ROS as noted above, otherwise negative Physical exam GEN: Alert, oriented, NAD HEENT: Normal conjunctiva, sclera anicteric CV: Regular rate and rhythm, no edema Pulm: Nonlabored respirations on room air ABD: Soft, nontender, nondistended MSK: No joint tenderness Integumentary: No rashes Neuro: Normal speech, normal affect Vitals reviewed Assessment: Syncope A-fib RVR with history of A-fib NSTEMI CARL on CKD with hyperkalemia Chronic diastolic congestive heart failure Cirrhosis Hypertension Hyperlipidemia Plan: Syncope A-fib RVR with history of A-fib NSTEMI Continue PO metoprolol Continue monitoring telemetry, will obtain echocardiogram and cardiology consultation Troponins peaked at ~ 1300, continue heparin drip Plan for coronary angiogram after HD initiated Denies chest pain Continue metoprolol 50mg PO BID Once needing PO anticoagulation will switch from pradaxa to eliquis given renal function CARL on CKD with hyperkalemia Nephrology consult Reportedly had discussed renal replacement therapies with checkman about a month ago Given Kayexalate in ED for hyperkalemia Gentle IV fluids per nephrology Some improvement with IVF Plan for HD cath insertion, likely Wednesday with Dr. Murillo Chronic diastolic congestive heart failure Does not appear grossly overloaded, continue home medications once verified Gentle IV fluids Cirrhosis Hypertension Hyperlipidemia Continue home medications when verified DVT PPX:Heparin drip Code status:Full code Discharge Plan: Home Plan to discharge in: Greater than 2 days Time Spent Managing Pts Care (In Minutes): 35
[2023-12-27] MEDS ORDERED: NA CHLORIDE 0.9% 1,000 ML IV PRN (10:48)
--- NOTE | 2023-12-27 10:51 | P.PN ---
Subjective Date of Service: 12/27/23 Chief Complaint: Afib RVR, syncope Subjective: No new changes, No C/O voiced, Tolerating diet, Ambulating, Improving Review of Systems 10-point ROS is otherwise unremarkable Physical Examination - Vital Signs Temperature: 97.5 F Blood Pressure: 113/69 Pulse: 67 Respirations: 18 Pulse Ox (%): 98 - Physical Exam General: Alert, In no apparent distress HEENT: Atraumatic, PERRLA, EOMI Neck: Supple, JVD not distended Respiratory: Clear to auscultation bilaterally, Normal air movement Cardiovascular: Regular rate/rhythm, Normal S1 S2 Gastrointestinal: Normal bowel sounds, No tenderness Musculoskeletal: No tenderness Integumentary: No rashes Neurological: Normal speech, Normal tone, Normal affect Lymphatics: No axilla or inguinal lymphadenopathy - Studies Medications List Reviewed: Yes Assessment And Plan - Current Problems (Diagnosis) (1) NSTEMI (non-ST elevated myocardial infarction) Current Visit: Yes Status: Acute Plan: Patient denies chest pain, but enzymes are tending up, this still can be type 2 CA from RVR and acute on chronic CKD, however patient got multiple risk factors for CAD and will benefit from coronary angiogram, the risk is that patient got advanced CKD and angiogram will worsen that up to the point that he will require dialysis. - patient is getting dialysis catheter placed tomorrow - Continue to trend enzymes until peak and down trending. - Continue Heparin drip - Plan for coronary angiogram Wednesday (2) Atrial fibrillation with RVR Current Visit: No Status: Acute Plan: currently in Sinus rhythm - continue lopressor 50 mg po BID - continue heparin drip (will switch to Eliquis 2.5 mg po BID on discharge).
[2023-12-27] MEDS ORDERED: ALBUMIN HUMAN 25% 50 ML IV SCH (11:00)
--- NOTE | 2023-12-27 16:18 | RAD REPORT ---
Procedure: Chest Single View HISTORY: Rule out TB COMPARISON: November 2023 FINDINGS: The lungs appear clear of acute infiltrate. No significant pleural effusion noted. The heart is mildly enlarged. IMPRESSION: No radiographic evidence of tuberculosis
--- NOTE | 2023-12-27 19:49 | P.PN ---
Date of Service: 12/27/23 Vital Signs Temp Pulse Resp BP Pulse Ox 97.4 F 65 18 129/65 96 12/27/23 16:00 12/27/23 16:00 12/27/23 16:00 12/27/23 16:00 12/27/23 16:00 Medications Allopurinol (Allopurinol 100 Mg Tab) 100 mg PO DAILY [facility] Last Admin: 12/27/23 09:05 Dose: 100 mg Amlodipine Besylate (Amlodipine 5 Mg Tab) 5 mg PO BEDTIME [facility] Last Admin: 12/26/23 20:13 Dose: 5 mg Epoetin Kishor (Epoetin Kishor 10,000 Unit/Ml Vial) 10,000 unit IV EVERY HD [facility] Heparin Sodium (Porcine) (Heparin 1,000 Unit/Ml Vial) 6,000 unit IV EVERY HD PRN PRN Reason: AFTER EACH Heparin Sodium/Dextrose (Heparin Drip 25,000 Units/5oo Ml Premix) 25,000 unit in 500 mls @ 0 mls/hr IV UD [facility]; Protocol Last Admin: 12/27/23 11:59 Dose: 500 mls Sodium Chloride (Ns 1000 Ml Ivbag) 1,000 mls @ 0 mls/hr IV .Q0M PRN; Protocol PRN Reason: Priming and BP support at HD Stop: 12/27/23 23:59 Albumin Human (Albumin 25%) 50 mls @ 100 mls/hr IV EVERY HD [facility] Insulin Human Regular (Insulin Regular (Human) 100 Unit/Ml) 0 unit SQ ACHS [facility]; Protocol Last Admin: 12/27/23 16:30 Dose: Not Given Mannitol (Mannitol 25% 12.5 Gm/50 Ml Vial) 12.5 gm IV EVERY HD PRN PRN Reason: Titrate to SBP (MUST DEFINE) Metoprolol Tartrate (Metoprolol Tar 50 Mg Tab) 50 mg PO BID [facility] Last Admin: 12/27/23 09:06 Dose: 50 mg Ondansetron HCl (Ondansetron 4 Mg/2 Ml Vial) 4 mg IV Q6H PRN PRN Reason: NAUSEA / VOMITING Last Admin: 12/26/23 13:05 Dose: 4 mg Rosuvastatin Calcium (Rosuvastatin 10 Mg Tab) 20 mg PO DAILY [facility] Last Admin: 12/27/23 09:05 Dose: 20 mg Tamsulosin HCl (Tamsulosin 0.4 Mg Sr Cap) 0.4 mg PO DAILY [facility] Last Admin: 12/27/23 09:06 Dose: 0.4 mg Assessment/ Plan: Nephrology No dyspnea No chest pain No acute events overnight Vitals, medications, blood work and imaging reviewed in the chart NAD. MMM. NCAT. Normal Respiratory Effort. S1S2. ND Abd. No C/C. LE Edema trace. No rash. AAO. Normal speech. LEFT VENTRICULAR WALL MOTION: NORMAL DOPPLER/COLOR FLOW: NORMAL 1. MILD CONCENTRIC LEFT VENTRICULAR HYPERTROPHY 2. NORMAL LEFT VENTRICULAR SYSTOLIC FUNCTION, EJECTION FRACTION 60-65%, NORMAL WALL MOTION 3. NORMAL DIASTOLIC FUNCTIO Stage III CARL with uremic symptoms CKD IV with Proteinuria -No NSAIDs -Surgery consulted for TDC -HD ordered -Placement pending [facility] Dialysis -Hepatitis negative HTN with CKD/ CHF -Continue Metoprolol -Continue Amlodipine Diastolic CHF, chronic -Daily weight -Low sodium diet Hypoalbuminemia -Start Nepro Anemia in chronic illness/ CKD -Monitor H&H -Retacrit qHD BPH with LUTS -Continue tamsulosin Hospitalist and Cardiology notes reviewed
[2023-12-27] MEDS: NEPRO SHAKE 237 ML CAN PO SCH (20:22)
[2023-12-27] MEDS: DOCUSATE NA 100 MG CAP PO SCH (20:22)
[2023-12-28 07:13] LABS: Albumin 2.4 g/dL (3.4-5.0); Albumin/Globulin Ratio 0.5 (1.1-1.8); Anion Gap 10.3 mEq/L (5.0-15.0); Bilirubin Total 0.4 mg/dL (0.2-1.0); Globulin 4.6 g/dL (2.3-3.5); Phosphorus 3.7 mg/dL (2.5-4.9); Potassium 4.3 mEq/L (3.5-5.1)
[2023-12-28 07:20] LABS: Absolute Eosinophils 0.2 K/uL (0-0.5); Absolute Lymphocytes (CBC) 1.2 K/uL (0.7-4.9); Absolute Monocytes 0.7 K/uL (0.1-1.3); Absolute Neutrophil 6.2 K/uL (1.8-8.0); Basophils % 0.4 % (0-1.3); Eosinophils % 2.2 % (0-4.4); Hematocrit 32.1 % (39.6-49.0); Hemoglobin 10.7 g/dL (13.6-17.9); Lymphocytes % 14.1 % (15.3-44.8); MCH 29.1 pg (27.0-35.0); MCHC 33.5 g/dL (32.0-36.0); MCV 86.8 fL (80-100); MPV 8.6 fL (7.6-11.3); Monocytes % 8.6 % (3.3-12.3); Neutrophils % 74.7 % (41.7-73.7); Nucleated Red Blood Cells % 0.1 % (0-0); Platelets 192 thou/uL (152-406); RBC Red Blood Cell Count 3.69 M/uL (4.33-5.43); Red Cell Distribution Width 14.7 % (12.1-15.2)
[2023-12-28] MEDS: NS 0.9% VIAL 0 ML ONE (08:04)
[2023-12-28] MEDS: NA CHLORIDE 0.9% 500 ML ONE (08:14)
[2023-12-28] MEDS ORDERED: ONDANSETRON 4 MG/2 ML VIAL ONE (08:24)
[2023-12-28] MEDS ORDERED: FENTANYL CITR 100 MCG/2 ML ONE (08:24)
[2023-12-28] MEDS ORDERED: LIDOCAINE 2% MPF 5 ML VIAL ONE (08:24)
[2023-12-28] MEDS ORDERED: propofoL 200 MG/20 ML VIAL IV ONE (08:24)
[2023-12-28] MEDS: CEFAZOLIN SODIUM 2 GM/VIAL ONE (08:40)
[2023-12-28] MEDS ORDERED: NS 0.9% VIAL 20 ML ONE (09:00)
[2023-12-28] MEDS: BUPIVACAINE 0.5% PF 10 ML VIAL ONE (09:06)
[2023-12-28] MEDS: HEPARIN 5000 UNIT/ML 1 ML VIAL ONE ×2 (09:24→09:25)
--- NOTE | 2023-12-28 09:25 | P.PN ---
Date of Service: 12/28/23 Subjective: Doing well today Now in NSR No acute events overnight Going for HD cath insertion today ROS: 10 point ROS as noted above, otherwise negative Physical exam GEN: Alert, oriented, NAD HEENT: Normal conjunctiva, sclera anicteric CV: Regular rate and rhythm, no edema Pulm: Nonlabored respirations on room air ABD: Soft, nontender, nondistended MSK: No joint tenderness Integumentary: No rashes Neuro: Normal speech, normal affect Vitals reviewed Assessment: Syncope A-fib RVR with history of A-fib NSTEMI CARL on CKD with hyperkalemia Chronic diastolic congestive heart failure Cirrhosis Hypertension Hyperlipidemia Plan: Syncope A-fib RVR with history of A-fib NSTEMI Continue PO metoprolol Continue monitoring telemetry, will obtain echocardiogram and cardiology consultation Troponins peaked at ~ 1300, continue heparin drip Plan for coronary angiogram after HD initiated Denies chest pain Continue metoprolol 50mg PO BID Once needing PO anticoagulation will switch from pradaxa to eliquis given renal function CARL on CKD with hyperkalemia Now ESRD Nephrology consult Plan for HD cath insertion today with Dr. Murillo Working on OP dialysis chair setup Chronic diastolic congestive heart failure Does not appear grossly overloaded, continue home medications once verified Cirrhosis Hypertension Hyperlipidemia Continue home medications when verified DVT PPX:Heparin drip Code status:Full code Discharge Plan: Home Plan to discharge in: Greater than 2 days Time Spent Managing Pts Care (In Minutes): 35
[2023-12-28] MEDS: NA CHLORIDE 0.9% 100 ML ONE (09:27)
--- NOTE | 2023-12-28 09:45 | P.OP ---
Date of Service: 12/28/23 Preop diagnosis: Acute renal failure Postop diagnosis: Same Procedure performed: Placement of right internal jugular tunneled dialysis catheter with utilization of Doppler and fluoroscopy Surgeon: Ck Murillo MD Bulk Receiver: None Estimated blood loss: Minimal Specimen: None Findings: Normal anatomy Anesthesia: General Complications: None Drains: None Fluids and blood products: Nonapplicable Disposition: Recovery room Operative note: Patient brought to the OR and placed in supine position. General anesthesia began. Patient prepped and draped in the usual sterile fashion lidocaine 1% infiltrated locally. Doppler device used to isolate the right internal jugular vein. 18-gauge needle used to access the right internal jugular vein. Guidewire passed and position confirmed with fluoroscopy. Counter-incision made on the right anterior chest. Tunneling device used to tunnel the catheter between the 2 wounds. Seldinger technique used. Tip of the catheter placed in the SVC/right atrial junction under fluoroscopy. Catheter flushed with heparin and packed with heparin with good blood flow. 3-0 chromic used to approximate subcutaneous tissue and close skin. 3-0 nylon used to secure the catheter to the chest wall. Sterile dressing applied. Patient awakened and taken to recovery room in good general condition. A chest x-ray has been ordered. CC:
[2023-12-28] MEDS ORDERED: HYDROCODONE/APAP 5/325 MG TAB PO PRN (09:51)
--- NOTE | 2023-12-28 10:29 | RAD REPORT ---
Procedure: Chest Single View HISTORY: Device placement. Central venous line placement. FINDINGS: A central venous catheter has been inserted into the superior vena cava. No pneumothorax
[2023-12-28] MEDS: DRISDOL (VITAMIN D=ERGOCALCIFEROL) 50000 UNIT CAP PO SCH (10:46)
--- NOTE | 2023-12-28 12:12 | P.PN ---
Subjective Date of Service: 12/28/23 Chief Complaint: Afib RVR, syncope Subjective: No new changes, No C/O voiced, Tolerating diet, Ambulating, Improving Review of Systems 10-point ROS is otherwise unremarkable Physical Examination - Vital Signs Temperature: 97.3 F Blood Pressure: 158/73 Pulse: 70 Respirations: 16 Pulse Ox (%): 95 - Physical Exam General: Alert, In no apparent distress HEENT: Atraumatic, PERRLA, EOMI Neck: Supple, JVD not distended Respiratory: Clear to auscultation bilaterally, Normal air movement Cardiovascular: Regular rate/rhythm, Normal S1 S2 Gastrointestinal: Normal bowel sounds, No tenderness Musculoskeletal: No tenderness Integumentary: No rashes Neurological: Normal speech, Normal tone, Normal affect Lymphatics: No axilla or inguinal lymphadenopathy - Studies Medications List Reviewed: Yes Assessment And Plan - Current Problems (Diagnosis) (1) NSTEMI (non-ST elevated myocardial infarction) Current Visit: Yes Status: Acute Plan: Patient denies chest pain, but enzymes are tending up, this still can be type 2 UT from RVR and acute on chronic CKD, however patient got multiple risk factors for CAD and will benefit from coronary angiogram. - patient got dialysis catheter placed and going for dialysis today - Continue Heparin drip - Plan for coronary angiogram in am - continue ASA 81 mg daily (2) Atrial fibrillation with RVR Current Visit: No Status: Acute Plan: currently in Sinus rhythm - continue lopressor 50 mg po BID - continue heparin drip (will switch to Eliquis 2.5 mg po BID on discharge).
[2023-12-28] MEDS: EPOETIN ALFA 10,000 UNIT/ML VIAL IV SCH (15:30)
--- NOTE | 2023-12-28 17:51 | RAD REPORT ---
EXAM: Fluoroscopy use, Fluoroscopy <1 Hour HISTORY: [facility] MAIN HD CATH PLACEMENT COMPARISON: None FINDINGS: A total of 3 images were sent to PACS, during a fluoroscopically guided HD catheter placeme nt. No radiologist was involved in protocoling or performance of the study, and no radiologist was present for the duration of the procedure. No interpretation of the saved images will be provided. Total fluoroscopy time: Less than 0.1 minute. IMPRESSION: Documentation of fluoroscopy use as above.
--- NOTE | 2023-12-28 19:43 | P.PN ---
Date of Service: 12/28/23 Vital Signs Temp Pulse Resp BP Pulse Ox 97.2 F 86 16 135/71 96 12/28/23 16:00 12/28/23 16:00 12/28/23 16:00 12/28/23 16:00 12/28/23 16:00 Medications Hydrocodone Bitart/Acetaminophen (Hydrocodone/Apap 5/325 Mg Tab) 1 tab PO Q6H PRN PRN Reason: Pain scale 5-7 (Moderate) Allopurinol (Allopurinol 100 Mg Tab) 100 mg PO DAILY [facility] Last Admin: 12/28/23 10:46 Dose: 100 mg Amlodipine Besylate (Amlodipine 5 Mg Tab) 5 mg PO BEDTIME [facility] Last Admin: 12/27/23 20:21 Dose: 5 mg Docusate Sodium (Docusate Na 100 Mg Cap) 100 mg PO BID [facility] Last Admin: 12/28/23 10:45 Dose: 100 mg Enteral Nutritional Formula (Nepro Shake 237 Ml Can) 237 ml PO TID [facility] Last Admin: 12/28/23 13:02 Dose: 237 ml Epoetin Kishor (Epoetin Kishor 10,000 Unit/Ml Vial) 10,000 unit IV EVERY HD [facility] Last Admin: 12/28/23 15:30 Dose: 10,000 unit Ergocalciferol (Drisdol (Vitamin D=Ergocalciferol) 64240 Unit Cap) 50,000 unit PO DAILY [facility] Stop: 12/29/23 09:01 Last Admin: 12/28/23 10:46 Dose: 50,000 unit Heparin Sodium (Porcine) (Heparin 1,000 Unit/Ml Vial) 6,000 unit IV EVERY HD PRN PRN Reason: AFTER EACH Last Admin: 12/28/23 15:57 Dose: 6,000 unit Heparin Sodium/Dextrose (Heparin Drip 25,000 Units/5oo Ml Premix) 25,000 unit in 500 mls @ 0 mls/hr IV UD [facility]; Protocol Last Admin: 12/27/23 11:59 Dose: 500 mls Albumin Human (Albumin 25%) 50 mls @ 100 mls/hr IV EVERY HD [facility] Insulin Human Regular (Insulin Regular (Human) 100 Unit/Ml) 0 unit SQ ACHS [facility]; Protocol Last Admin: 12/28/23 16:12 Dose: Not Given Mannitol (Mannitol 25% 12.5 Gm/50 Ml Vial) 12.5 gm IV EVERY HD PRN PRN Reason: Titrate to SBP (MUST DEFINE) Metoprolol Tartrate (Metoprolol Tar 50 Mg Tab) 50 mg PO BID [facility] Last Admin: 12/28/23 09:00 Dose: Not Given Ondansetron HCl (Ondansetron 4 Mg/2 Ml Vial) 4 mg IV Q6H PRN PRN Reason: NAUSEA / VOMITING Last Admin: 12/26/23 13:05 Dose: 4 mg Rosuvastatin Calcium (Rosuvastatin 10 Mg Tab) 20 mg PO DAILY [facility] Last Admin: 12/28/23 10:45 Dose: 20 mg Tamsulosin HCl (Tamsulosin 0.4 Mg Sr Cap) 0.4 mg PO DAILY [facility] Last Admin: 12/28/23 10:45 Dose: 0.4 mg Assessment/ Plan: Nephrology No dyspnea No chest pain No acute events overnight Vitals, medications, blood work and imaging reviewed in the chart NAD. MMM. NCAT. Normal Respiratory Effort. S1S2. ND Abd. No C/C. LE Edema none. No rash. AAO. Normal speech. LEFT VENTRICULAR WALL MOTION: NORMAL DOPPLER/COLOR FLOW: NORMAL 1. MILD CONCENTRIC LEFT VENTRICULAR HYPERTROPHY 2. NORMAL LEFT VENTRICULAR SYSTOLIC FUNCTION, EJECTION FRACTION 60-65%, NORMAL WALL MOTION 3. NORMAL DIASTOLIC FUNCTION Stage III CARL with uremic symptoms CKD IV with Proteinuria -No NSAIDs -Surgery placed TDC 12-28-23 -HD initiated 12-28-23 -Placement pending [facility] Dialysis -Hepatitis negative HTN with CKD/ CHF -Continue Metoprolol -Continue Amlodipine Diastolic CHF, chronic -Daily weight -Low sodium diet Hypoalbuminemia -Continue Nepro Anemia in chronic illness/ CKD -Monitor H&H -Retacrit qHD BPH with LUTS -Continue tamsulosin Hospitalist and Cardiology notes reviewed
[2023-12-29 06:50] LABS: Hematocrit 30.8 % (39.6-49.0); Hemoglobin 10.4 g/dL (13.6-17.9); MCH 29.5 pg (27.0-35.0); MCHC 33.6 g/dL (32.0-36.0); MCV 87.9 fL (80-100); MPV 8.7 fL (7.6-11.3); Platelets 183 thou/uL (152-406); RBC Red Blood Cell Count 3.51 M/uL (4.33-5.43); Red Cell Distribution Width 14.9 % (12.1-15.2)
[2023-12-29 07:05] LABS: Anion Gap 10.4 mEq/L (5.0-15.0); Potassium 4.4 mEq/L (3.5-5.1)
[2023-12-29] MEDS ORDERED: HEPARIN 10,000 UNIT/10 ML VIAL IV ONE (08:32)
[2023-12-29] MEDS ORDERED: MIDAZOLAM HCL 2 MG/2 ML INJ ONE (08:33)
[2023-12-29] MEDS ORDERED: ATROPINE SULF 1 MG/10 ML SYR IV ONE (08:33)
[2023-12-29] MEDS ORDERED: CLOPIDOGREL 75 MG TABLET ONE (08:34)
[2023-12-29] MEDS ORDERED: HEPA 1000U/500MLS 2,000 UNIT/1,000 ML BAG IV ONE (08:34)
[2023-12-29] MEDS ORDERED: TICAGRELOR 90 MG TABLET PO ONE (08:35)
[2023-12-29] MEDS ORDERED: HEPARIN 5000 UNIT/ML 1 ML VIAL ONE (08:35)
[2023-12-29] MEDS ORDERED: FENTANYL CITR 100 MCG/2 ML ONE (08:35)
[2023-12-29] MEDS ORDERED: ASPIRIN 325 MG TAB ONE (08:35)
[2023-12-29] MEDS ORDERED: LIDOCAINE 1% 20 ML MDV ONE (08:37)
[2023-12-29] MEDS ORDERED: NA CHLORIDE 0.9% 500 ML ONE (08:53)
--- NOTE | 2023-12-29 13:11 | P.PN ---
Subjective Date of Service: 12/29/23 Chief Complaint: Afib RVR, syncope Subjective: No new changes, No C/O voiced, Tolerating diet, Ambulating, Improving Review of Systems 10-point ROS is otherwise unremarkable Physical Examination - Vital Signs Temperature: 97.5 F Blood Pressure: 155/74 Pulse: 70 Respirations: 16 Pulse Ox (%): 97 - Physical Exam General: Alert, In no apparent distress HEENT: Atraumatic, PERRLA, EOMI Neck: Supple, JVD not distended Respiratory: Clear to auscultation bilaterally, Normal air movement Cardiovascular: Irregular heart rate/rhythm Gastrointestinal: Normal bowel sounds, No tenderness Musculoskeletal: No tenderness Integumentary: No rashes Neurological: Normal speech, Normal tone, Normal affect Lymphatics: No axilla or inguinal lymphadenopathy - Studies Medications List Reviewed: Yes Assessment And Plan - Current Problems (Diagnosis) (1) NSTEMI (non-ST elevated myocardial infarction) Current Visit: Yes Status: Acute Plan: Coronary angiogram done today and patient is s/p PCI of LAD. - continue ASA 81 mg daily - Brilinta 90 mg po X1 tonight - Plavix 300 mg po x1 tonight then continue Plavix 75 mg daily for 12 months starting tomorrow - Lipitor 40 mg daily (2) Atrial fibrillation with RVR Current Visit: No Status: Acute Plan: currently in Sinus rhythm - continue lopressor 50 mg po BID - continue heparin drip (will switch to Eliquis 2.5 mg po BID on discharge).
--- NOTE | 2023-12-29 14:48 | P.PN ---
Date of Service: 12/29/23 Subjective: Heart cath this AM, PCI to LAD no new complaints ROS: 10 point ROS as noted above, otherwise negative Physical exam GEN: Alert and oriented x3, NAD HEENT: Normal conjunctiva, sclera anicteric CV: RRR, S1 S2 present, no edema Pulm: Nonlabored respirations on room air ABD: Soft and benign on palpation, NT/ND, bowel sounds present MSK: No joint tenderness Integumentary: No rashes Neuro: Normal speech, normal affect Vitals reviewed Assessment: Syncope A-fib RVR with history of A-fib NSTEMI S/P PCI LAD CARL on CKD with hyperkalemia Chronic diastolic congestive heart failure Cirrhosis Hypertension Hyperlipidemia Plan: Syncope A-fib RVR with history of A-fib NSTEMI -Continue PO metoprolol -Continue monitoring telemetry, will obtain echocardiogram and cardiology consultation -Troponins peaked at ~ 1300 -heart cath today 12/28, PCI to LAD -Denies chest pain -Continue metoprolol 50mg PO BID -heparin Gtt til discharged then start eliquis - continue ASA 81 mg daily - Brilinta 90 mg po X1 tonight - Plavix 300 mg po x1 tonight then continue Plavix 75 mg daily for 12 months starting tomorrow - Lipitor 40 mg daily CARL on CKD with hyperkalemia Now ESRD -Nephrology consult -HD cath insertion 12/[address] Murillo -Working on OP dialysis chair setup -HD scheduled for today 12/28 Chronic diastolic congestive heart failure -Does not appear grossly overloaded, continue home medications once verified Cirrhosis Hypertension Hyperlipidemia -Continue home medications when verified DVT PPX:Heparin drip Code status:Full code Discharge Plan: Home Plan to discharge in: Greater than 2 days
[2023-12-29] MEDS: MANNITOL 25% 12.5 GM/50 ML VIAL IV PRN (16:10)
[2023-12-29] MEDS: ATORVASTATIN 40 MG TAB PO SCH (20:35)
[2023-12-29] MEDS: TICAGRELOR 90 MG TABLET PO SCH (20:35)
[2023-12-29] MEDS: CLOPIDOGREL 75 MG TABLET PO ONE (20:36)
[2023-12-29] MEDS ORDERED: ATORVASTATIN 40 MG TAB PO SCH (21:00)
[2023-12-30 07:36] LABS: Hematocrit 29.2 % (39.6-49.0); Hemoglobin 9.7 g/dL (13.6-17.9); MCH 29.2 pg (27.0-35.0); MCHC 33.3 g/dL (32.0-36.0); MCV 87.8 fL (80-100); MPV 8.8 fL (7.6-11.3); Platelets 173 thou/uL (152-406); RBC Red Blood Cell Count 3.33 M/uL (4.33-5.43)
[2023-12-30 07:44] LABS: Anion Gap 12.1 mEq/L (5.0-15.0); Potassium 4.1 mEq/L (3.5-5.1)
[2023-12-30] MEDS: ASPIRIN 81 MG CHEWABLE TABLET PO SCH (09:17)
[2023-12-30] MEDS: CLOPIDOGREL 75 MG TABLET PO SCH (09:18)
--- NOTE | 2023-12-30 10:22 | P.PN ---
Subjective Date of Service: 12/30/23 Chief Complaint: Afib RVR, syncope Subjective: No new changes, No C/O voiced, Tolerating diet, Ambulating, Improving Review of Systems 10-point ROS is otherwise unremarkable Physical Examination - Vital Signs Temperature: 97.8 F Blood Pressure: 153/73 Pulse: 88 Respirations: 18 Pulse Ox (%): 97 - Physical Exam General: Alert, In no apparent distress HEENT: Atraumatic, PERRLA, EOMI Neck: Supple, JVD not distended Respiratory: Clear to auscultation bilaterally, Normal air movement Cardiovascular: Irregular heart rate/rhythm Gastrointestinal: Normal bowel sounds, No tenderness Musculoskeletal: No tenderness Integumentary: No rashes Neurological: Normal speech, Normal tone, Normal affect Lymphatics: No axilla or inguinal lymphadenopathy - Studies Medications List Reviewed: Yes Assessment And Plan - Current Problems (Diagnosis) (1) NSTEMI (non-ST elevated myocardial infarction) Current Visit: Yes Status: Acute Plan: Coronary angiogram done today and patient is s/p PCI of LAD. - continue ASA 81 mg daily - Plavix 75 mg daily for 12 months - Lipitor 40 mg daily (2) Atrial fibrillation with RVR Current Visit: No Status: Acute Plan: currently in Sinus rhythm - continue lopressor 50 mg po BID - Eliquis 2.5 mg po BID.
[2023-12-30] MEDS ORDERED: ALBUMIN HUMAN 25% 100 ML IV ONE (11:00)
--- NOTE | 2023-12-30 11:37 | P.PN ---
Date of Service: 12/30/23 Vital Signs Temp Pulse Resp BP Pulse Ox 97.8 F 88 18 153/73 H 97 12/30/23 10:22 12/30/23 10:22 12/30/23 10:22 12/30/23 10:22 12/30/23 10:22 Medications Hydrocodone Bitart/Acetaminophen (Hydrocodone/Apap 5/325 Mg Tab) 1 tab PO Q6H PRN PRN Reason: Pain scale 5-7 (Moderate) Allopurinol (Allopurinol 100 Mg Tab) 100 mg PO DAILY [facility] Last Admin: 12/30/23 09:17 Dose: 100 mg Amlodipine Besylate (Amlodipine 5 Mg Tab) 5 mg PO BEDTIME [facility] Last Admin: 12/29/23 21:00 Dose: Not Given Aspirin (Aspirin 81 Mg Chewable Tablet) 81 mg PO DAILY [facility] Last Admin: 12/30/23 09:17 Dose: 81 mg Atorvastatin Calcium (Atorvastatin 40 Mg Tab) 40 mg PO BEDTIME [facility] Last Admin: 12/29/23 20:35 Dose: 40 mg Clopidogrel Bisulfate (Clopidogrel 75 Mg Tablet) 75 mg PO DAILY [facility] Last Admin: 12/30/23 09:18 Dose: 75 mg Docusate Sodium (Docusate Na 100 Mg Cap) 100 mg PO BID [facility] Last Admin: 12/30/23 09:00 Dose: Not Given Enteral Nutritional Formula (Nepro Shake 237 Ml Can) 237 ml PO TID [facility] Last Admin: 12/30/23 09:20 Dose: 237 ml Epoetin Kishor (Epoetin Kishor 10,000 Unit/Ml Vial) 10,000 unit IV EVERY HD [facility] Last Admin: 12/29/23 16:30 Dose: 10,000 unit Heparin Sodium (Porcine) (Heparin 1,000 Unit/Ml Vial) 6,000 unit IV EVERY HD PRN PRN Reason: AFTER EACH Last Admin: 12/29/23 17:09 Dose: 6,000 unit Heparin Sodium/Dextrose (Heparin Drip 25,000 Units/5oo Ml Premix) 25,000 unit in 500 mls @ 0 mls/hr IV UD [facility]; Protocol Last Admin: 12/27/23 11:59 Dose: 500 mls Albumin Human (Albumin 25%) 50 mls @ 100 mls/hr IV EVERY HD [facility] Insulin Human Regular (Insulin Regular (Human) 100 Unit/Ml) 0 unit SQ ACHS [facility]; Protocol Last Admin: 12/30/23 07:30 Dose: Not Given Mannitol (Mannitol 25% 12.5 Gm/50 Ml Vial) 12.5 gm IV EVERY HD PRN PRN Reason: Titrate to SBP (MUST DEFINE) Last Admin: 12/29/23 16:10 Dose: 12.5 gm Metoprolol Tartrate (Metoprolol Tar 50 Mg Tab) 50 mg PO BID [facility] Last Admin: 12/30/23 09:00 Dose: Not Given Ondansetron HCl (Ondansetron 4 Mg/2 Ml Vial) 4 mg IV Q6H PRN PRN Reason: NAUSEA / VOMITING Last Admin: 12/30/23 09:17 Dose: 4 mg Tamsulosin HCl (Tamsulosin 0.4 Mg Sr Cap) 0.4 mg PO DAILY [facility] Last Admin: 12/30/23 09:17 Dose: 0.4 mg Ticagrelor (Ticagrelor 90 Mg Tablet) 90 mg PO BID [facility] Last Admin: 12/30/23 09:18 Dose: 90 mg Assessment/ Plan: Nephrology No dyspnea No chest pain No acute events overnight Episode of hypotension with HD yesterday Vitals, medications, blood work and imaging reviewed in the chart NAD. MMM. NCAT. Normal Respiratory Effort. S1S2. ND Abd. No C/C. LE Edema none. No rash. AAO. Normal speech. LEFT VENTRICULAR WALL MOTION: NORMAL DOPPLER/COLOR FLOW: NORMAL 1. MILD CONCENTRIC LEFT VENTRICULAR HYPERTROPHY 2. NORMAL LEFT VENTRICULAR SYSTOLIC FUNCTION, EJECTION FRACTION 60-65%, NORMAL WALL MOTION 3. NORMAL DIASTOLIC FUNCTION Stage III CARL with uremic symptoms CKD IV with Proteinuria -No NSAIDs -Surgery placed TDC 12-28-23 -HD initiated 12-28-23 -Placement ready for [facility] Dialysis tomorrow -Hepatitis negative HTN with CKD/ CHF -Continue Metoprolol -Continue Amlodipine Diastolic CHF, chronic -Daily weight -Low sodium diet Hypoalbuminemia -Continue Nepro Anemia in chronic illness/ CKD -Monitor H&H -Retacrit qHD BPH with LUTS -Continue tamsulosin Hospitalist and Cardiology notes reviewed Case reviewed with Dr. Anderson
[2023-12-30 12:25] VITALS: O2SAT 97
[2023-12-30 12:38] VITALS: BP 144/71; TEMP 97.6
--- NOTE | 2023-12-30 13:43 | P.DS ---
Admission Date: 12/23/23 Discharge Date: 12/30/23 Disposition: ROUTINE DISCHARGE Discharge Condition: GOOD Reason for Admission: Afib RVR, syncope Brief History of Present Illness: Diagnosis Syncope A-fib RVR with history of A-fib NSTEMI S/P PCI LAD CARL on CKD with hyperkalemia Chronic diastolic congestive heart failure Cirrhosis Hypertension Hyperlipidemia HPI 12/23/2023 Win Zheng is a 73-year-old male with history of atrial fibrillation, insulin-dependent diabetes, hypertension, hyperlipidemia, CKD, cirrhosis of liver, chronic diastolic congestive heart failure presents to the emergency department chief complaint of syncope. He had gone to the GI clinic for evaluation of possible ascites had a syncopal episode in the seated position, he reports feeling a little dizzy before the episode, EMS was called and patient was brought to the hospital. Upon arrival to the hospital he was in A-fib RVR with rates in 140s. He was given NS, Mag, IV Dig, PO metoprolol and his rate improved. His labs were significant for a sodium of 148 potassium was 5.2 bicarb is 17 creatinine 5.39 GFR 10 high-sensitivity troponin was 209.3 CT chest abdomen pelvis was performed which showed prominent epigastric and reyes hepatis nodes, nonspecific suggesting ongoing infectious or inflammatory process. Mild free ascites. Admission to the hospitalist service for further management of his syncopal episode, CARL with hyperkalemia, elevated troponin and A-fib RVR Hospital Course: Win Zheng is a pleasant 73-year-old male with a past medical history significant for atrial fibrillation, insulin-dependent diabetes, hypertension, hyperlipidemia, CKD, cirrhosis of liver, chronic diastolic congestive heart failure who was admitted to the [facility] on 12/23/2023 for syncope, CARL, NSTEMI, A-fib with RVR. Win presented to the ED after having a syncopal episode at the GI clinic. On evaluation in the ED, he was found to be in Afib with RVR with HR in 140s with elevated troponin. Cardiology was consulted and his troponin continued to elevate significantly. Metoprolol was used to control his heart rate but he remained in Afib. He tolerated the heparin gtt and a heart cath was performed on 12/28, PCI to LAD. Kidney failure was noted and nephrology was consulted who initiated hemodialysis. HD catheter placed by Dr. Murillo on 12/27. A dialysis chair is scheduled at [facility] HD MWF at 2PM. He is tolerating PO diet and hemodynamically stable for discharge. On 12/30/2023, Win was seen on morning rounds and deemed medically stable for discharge. Win was discharged with instructions to schedule follow-up appointments with Dr. Steele, PCP and Dr. Rodriguez. Win was provided prescriptions for aspirin, Eliquis, Brilinta, Lipitor, Lopressor. Physical exam GEN: AAO x3, NAD HEENT: Normal conjunctiva, sclera anicteric CV: RRR, S1 S2 present, no edema Pulm: Nonlabored respirations, symmetrical chest wall movement, on room air ABD: Soft and benign on palpation, NT/ND, bowel sounds present MSK: No joint tenderness Integumentary: No rashes Neuro: Normal speech, normal affect Vital Signs/Physical Exam: Temp Pulse Resp BP Pulse Ox 97.6 F 86 20 144/71 H 97 12/30/23 12:00 12/30/23 12:00 12/30/23 12:00 12/30/23 12:00 12/30/23 12:00 Laboratory Data at Discharge: WBC 10.70 thou/uL (4.3-10.9) 12/30/23 07:12 Hgb 9.7 g/dL (13.6-17.9) L 12/30/23 07:12 Hct 29.2 % (39.6-49.0) L 12/30/23 07:12 Plt Count 173 thou/uL (152-406) 12/30/23 07:12 PT 13.5 SECONDS (9.4-12.5) H 12/23/23 13:57 INR 1.21 12/23/23 13:57 APTT 29.4 SECONDS (24.3-36.9) 12/30/23 07:12 Sodium 140 mEq/L (136-145) 12/30/23 07:12 Potassium 4.1 mEq/L (3.5-5.1) 12/30/23 07:12 BUN 41 mg/dL (7-18) H 12/30/23 07:12 Creatinine 4.23 mg/dL (0.70-1.30) H 12/30/23 07:12 Glucose 120 mg/dL (74-106) H 12/30/23 07:12 Uric Acid 11.8 mg/dL (3.5-7.2) H 12/24/23 08:12 Phosphorus 3.7 mg/dL (2.5-4.9) 12/28/23 06:27 Magnesium 3.0 mg/dL (1.6-2.4) H 12/28/23 06:27 Total Bilirubin 0.4 mg/dL (0.2-1.0) 12/28/23 06:27 AST 21 U/L (15-37) 12/28/23 06:27 ALT 29 U/L (16-61) 12/28/23 06:27 Alkaline Phosphatase 141 U/L (45-117) H 12/28/23 06:27 Triglycerides 104 mg/dL (<150) 12/24/23 08:12 Cholesterol 160 mg/dL (<200) 12/24/23 08:12 HDL Cholesterol 41 mg/dL (40-60) 12/24/23 08:12 Cholesterol/HDL Ratio 3.90 12/24/23 08:12 Home Medications: Furosemide [Lasix] 20 mg PO DAILY 03/04/18 Hydralazine [Apresoline*] 50 mg PO BID 03/04/18 Na Bicarb Tab [Sodium Bicarb 325 MG Tab*] 325 mg PO BID 03/04/18 Spironolactone [Aldactone] 25 mg PO DAILY 03/04/18 allopurinoL [Zyloprim*] 100 mg PO DAILY 03/04/18 Dabigatran Etexilate Mesylate [Pradaxa*] 75 mg PO BID 12/18/21 Insulin Glargine,Hum.rec.anlog [Lantus Solostar] 10 unit SQ BEDTIME 12/18/21 Colchicine 1 tab PO DAILY PRN 12/24/23 Rosuvastatin Calcium [Crestor] 1 tab PO DAILY 12/24/23 Semaglutide [Ozempic] 1 mg SQ EVERY 7TH DAY 12/24/23 Tamsulosin [Flomax*] 1 tab PO DAILY 12/24/23 Amlodipine [Norvasc*] 5 mg PO BEDTIME 30 Days #30 tab 12/30/23 Aspirin Chewable [Aspirin Chewable*] 81 mg PO DAILY 30 Days #30 tab.chew 10/31/24 Atorvastatin Calcium [Lipitor] 40 mg PO BEDTIME 30 Days #30 tab 12/30/23 Clopidogrel Bisulfate [Plavix*] 75 mg PO DAILY 30 Days #30 tab 12/30/23 Metoprolol Tartrate [Lopressor*] 50 mg PO BID 30 Days #60 tab 12/30/23 Nepro Shake [Nepro*] 237 ml PO TID 30 Days #90 can 12/30/23 Ticagrelor [Brilinta*] 90 mg PO BID 30 Days #60 tab 12/30/23 Apixaban [Eliquis] 2.5 mg PO BID 30 Days #15 tablet 12/31/23 New Medications: Aspirin Chewable [Aspirin Chewable*] 81 mg PO DAILY 30 Days #30 tab.chew Ticagrelor [Brilinta*] 90 mg PO BID 30 Days #60 tab Apixaban [Eliquis] 2.5 mg PO BID 30 Days #15 tablet Atorvastatin Calcium [Lipitor] 40 mg PO BEDTIME 30 Days #30 tab Metoprolol Tartrate [Lopressor*] 50 mg PO BID 30 Days #60 tab Nepro Shake [Nepro*] 237 ml PO TID 30 Days #90 can Amlodipine [Norvasc*] 5 mg PO BEDTIME 30 Days #30 tab Clopidogrel Bisulfate [Plavix*] 75 mg PO DAILY 30 Days #30 tab Physician Discharge Instructions: 1. Please call and schedule a follow-up appointment with your PCP in 3-5 days - Please follow-up with your PCP for medication refills/adjustments 2. Please call and schedule a follow-up appointment with Dr. Steele in 3-5 days -Continued kidney management 3. please call and schedule follow-up appointments with Dr. Rodriguez in 1 week -He will manage Plavix, Lopressor, and Eliquis 3. Continue renal diet 4. activity restrictions fall precautions 5. Return to the ED if symptoms worsen New medications Plavix 75 mg daily for 12 months Lipitor 40 mg daily Aspirin 81 mg daily Eliquis 2.5 mg twice daily x 30 days Lopressor 50 mg p.o. twice daily x 30 days Dialysis chair at [facility] HD Wednesday, Wednesday, and Wednesday's at 2:00PM Diet: Renal Activity: Fall precautions Followup: Galen Steele DO [ACTIVE - CAN ADMIT] - 1-2 Weeks Dk Rodriguez MD [ACTIVE - CAN ADMIT] - 1-2 Weeks Crissy Villalpando MD [Primary Care Provider] - 1-2 Weeks
--- NOTE | 2023-12-30 20:33 | P.PN ---
Date of Service: 12/29/23 Vital Signs Temp Pulse Resp BP Pulse Ox 97.6 F 86 20 144/71 H 97 12/30/23 12:00 12/30/23 12:00 12/30/23 12:00 12/30/23 12:00 12/30/23 12:00 Assessment/ Plan: Nephrology No dyspnea No chest pain No acute events overnight Vitals, medications, blood work and imaging reviewed in the chart NAD. MMM. NCAT. Normal Respiratory Effort. S1S2. ND Abd. No C/C. LE Edema none. No rash. AAO. Normal speech. LEFT VENTRICULAR WALL MOTION: NORMAL DOPPLER/COLOR FLOW: NORMAL 1. MILD CONCENTRIC LEFT VENTRICULAR HYPERTROPHY 2. NORMAL LEFT VENTRICULAR SYSTOLIC FUNCTION, EJECTION FRACTION 60-65%, NORMAL WALL MOTION 3. NORMAL DIASTOLIC FUNCTION Stage III CARL with uremic symptoms CKD IV with Proteinuria -No NSAIDs -Surgery placed TDC 12-28-23 -HD initiated 12-28-23 -Placement pending for [facility] Dialysis tomorrow -Hepatitis negative HTN with CKD/ CHF -Continue Metoprolol -Continue Amlodipine Diastolic CHF, chronic -Daily weight -Low sodium diet Hypoalbuminemia -Continue Nepro Anemia in chronic illness/ CKD -Monitor H&H -Retacrit qHD BPH with LUTS -Continue tamsulosin Hospitalist and Cardiology notes reviewed Case reviewed with Dr. Anderson
--- NOTE | 2023-12-30 21:32 | OP ---
Date of Procedure: 12/29/2023 Surgeon: Dk Rodriguez Procedures Performed: 1.Left heart catheterization. 2.Selective coronary angiogram. 3.PCI of the LAD with Synergy 3.5 x 24 mm drug-eluting stent. Indication For Procedure: [id number]. Complications: None. Estimated Blood Loss: Less than 50 cc. Access: Right radial, closed by TR band. Sedation Time: 30 minutes with 1 of Versed and 25 of fentanyl. Description Of Procedure: After risks, benefits, and alternatives were explained to the patient, pat ient agreed to proceed with procedure and signed informed consent. The patient was brought back to [facility], prepped and draped in sterile fashion. Time-out was performed. Sedation was administer ed. Next, the right radial access was obtained. Lowpoint 4.0 catheter was advanced to the LV cavity. LVEDP was obtained. Pullback did not show any gradient. Same catheter was used for selective angiog erick of the left and right coronary systems. That catheter was later exchanged for an XB LAD 3.5 mm g uide. Heparin was administered. ACT was therapeutic. Runthrough wire was passed across the lesion, pre-dilated the lesion with an NC 3.0 mm balloon. Next, the Synergy 3.5 x 24 mm drug-eluting stent was placed across the lesion that was postdilated with a 3.75 mm NC balloon. Final angiogram shows T IMI-3 flow. Wires were removed. Catheter was removed over a J-wire. Sheath was removed. TR band a pplied. Hemostasis was achieved and patient was moved back to Recovery in stable condition. Findings: 1.Left main normal. 2.LAD; proximal 60% disease with mid 80% disease, PCI done with Synergy 3.5 x 24 mm drug-eluting samuel nt from ostium LAD down to the mid LAD, mid to distal mild luminal irregularities. 3.Left circ; mild luminal irregularities. 4.RCA; mild luminal irregularities. 5.LVEDP 8 mmHg. Assessment And Plan: Significant proximal to mid LAD disease, status post PCI with Synergy 3.5 x 24 mm drug-eluting stent that extends from the ostium down to the mid LAD. Plan will be: 1.To continue aspirin 81 mg daily for life. 2.Plavix 75 mg daily for 12 months. 3.We will resume Eliquis 2.5 b.i.d. since the patient is in AFib and has a history of end-stage josy l disease on dialysis. 4.Continue medical management for CAD. KENDRA/LINCOLN Voice ID: [id number] Report ID: [id number]
== END 2023-12-30 15:35 | disposition home or self-care (01) | DRG 673 ==
LOC: ER 13:36 → ERHOLD 17:40 → 4TH 21:04
PROVIDERS: ADMIT Hospitalist; ATTEND Internal Medicine
PROC: 0JH63XZ Insertion of Tunneled Vascular Access Device into Chest Subcutaneous Tissue and Fascia, Percutaneous Approach (ICD-10-PCS; 2023-12-28)
PROC: 02HV33Z Insertion of Infusion Device into Superior Vena Cava, Percutaneous Approach (ICD-10-PCS; 2023-12-28)
PROC: 5A1D70Z Performance of Urinary Filtration, Intermittent, Less than 6 Hours Per Day (ICD-10-PCS; principal; 2023-12-28 08:30)
PROC: 027034Z Dilation of Coronary Artery, One Artery with Drug-eluting Intraluminal Device, Percutaneous Approach (ICD-10-PCS; 2023-12-29)
PROC: 4A023N7 Measurement of Cardiac Sampling and Pressure, Left Heart, Percutaneous Approach (ICD-10-PCS; 2023-12-29)
PROC: B2111ZZ Fluoroscopy of Multiple Coronary Arteries using Low Osmolar Contrast (ICD-10-PCS; 2023-12-29)
DX: N17.9 Acute kidney failure, unspecified (principal); I21.A1 Myocardial infarction type 2; E87.20 Acidosis, unspecified; I50.32 Chronic diastolic (congestive) heart failure; I13.2 Hypertensive heart and chronic kidney disease with heart failure and with stage 5 chronic kidney disease, or end stage renal disease; I48.3 Typical atrial flutter; I48.0 Paroxysmal atrial fibrillation; N18.6 End stage renal disease; E87.5 Hyperkalemia; E11.22 Type 2 diabetes mellitus with diabetic chronic kidney disease; D63.1 Anemia in chronic kidney disease; E86.0 Dehydration; E78.5 Hyperlipidemia, unspecified; K74.60 Unspecified cirrhosis of liver; E88.09 Other disorders of plasma-protein metabolism, not elsewhere classified; N40.1 Benign prostatic hyperplasia with lower urinary tract symptoms; Z79.4 Long term (current) use of insulin; Z79.899 Other long term (current) drug therapy
CPT/HCPCS: 36415; 70450; 71045; 71250; 72125; 74176; 76000; 76937; 80048; 80053; 80061; 80076; 81001; 82140; 82947; 83735; 83880; 84100; 84439; 84443; 84484; 84550; 85025; 85027; 85347; 85610; 85730; 86704; 86706; 87340; 90935; 93005; 93306; 93458; 96365; 96366; 96367; 96375; 99152; 99153; 99285; A4216; C1725; C1752; C1769; C1877; C1893; C9600; J0461; J1160; J1644; J2003; J2150; J2250; J2405; J2470; J2704; J3010; J3475; J7040; P9047; Q4081; Q9967

== ENCOUNTER 2024-01-04 10:13 | Emergency (ER) | payer OTHER ==
[2024-01-04] MEDS ORDERED: ATROPINE SULF 1 MG/10 ML SYR IV ONE (10:14)
[2024-01-04] MEDS ORDERED: ROCURONIUM 50 MG/5 ML VIAL IV ONE (10:14)
[2024-01-04] MEDS ORDERED: EPINEPHrine 1 MG/10 ML SYR IV ONE (10:14)
[2024-01-04] MEDS ORDERED: AMIODARONE HCL 150 MG/3 ML INJ IV ONE (10:14)
[2024-01-04] MEDS ORDERED: Calcium Chloride 10% INJ SYR IV ONE ×3 (10:14→10:55)
[2024-01-04] MEDS ORDERED: ETOMIDATE 20 MG/10 ML VIAL IV ONE (10:14)
[2024-01-04] MEDS ORDERED: NA CHLORIDE 0.9% 250 ML IV ONE (10:14)
[2024-01-04] MEDS ORDERED: DOPAMINE 400 MG/250 ML D5W PREMIX IV ONE (10:14)
--- OUTSIDE RECORDS SUMMARY | 2024-01-04 10:17 | XMS REPORT | Continuity of Care Document ---
Author Name Unknown Address [address] [facility] [address] [place], [place] [id number] [place] [address] thconnect Address [address] [facility] [address] [place] [address] Care Team Providers Care Organisation And Methods Analyst Name Role Phone Crissy Villalpando Attending Clinician Unavailable Alycia Hoffman Attending Clinician Unavailable Payers Payer Name Policy Type Policy Number Effective Date Expirati on Date Source [employer] MEDICARE 53 [id number] 2021 00:00:00 [facility] AETNA 53 [id number] 00:00:00 [facility] MEDICARE NOVITAS [id number] 2014 00:00:00 [facility] Problems Condition Name Condition Details Condition Category Status Onset Date Resolution Date Last Treatment Date Treating Clinician Comments Source [id number] 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 Problem [facility] [id number] Chronic gout involving toe without tophus, unspecifie d cause, unspecifie d laterality Problem [facility] [id number] Benign prostatic hyperplasi a with lower urinary tract symptoms Problem [facility] Hypertensi on HTN (hypertens ion) Problem [facility] Vitamin B12 deficiency Vitamin B12 deficiency Problem [facility] [id number] Encounter for immunizati on Problem [facility] [id number] CKD (chronic kidney disease) stage 4, GFR 15-29 ml/min Problem [facility] [id number] Mixed hyperlipid emia Problem [facility] [id number] History of colon polyps Problem [facility] Coronary artery disease CAD (coronary artery disease) Problem [facility] [id number] Type 2 diabetes mellitus with diabetic chronic kidney disease Problem [facility] [id number] Longstandi ng persistent atrial fibrillati on Problem [facility] [id number] Anemia in chronic kidney disease Problem [facility] [id number] Chronic kidney disease, unspecifie d Problem [facility] [id number] Other ascites Problem [facility] [id number] Anorexia Problem [facility] [id number] Asymptomat ic cholelithi asis Problem [facility] Social History Social Habit Start Date Stop Date Quantity Comments Source History of Tobacco Use [facility] Sex Assigned At [facility] Smoking Status Start Date Stop Date Source Never Smoker [facility] Medications Ordered Medication Name Filled Medication Name Start Date Stop Date Current Medication? Ordering Clinician Indication Dosage Frequency Signature (SIG) Comments Components Source Lantus SoloStar 100 UNIT/ML Lantus SoloStar 100 UNIT/ML 11-21 00:00: 00 No QD Lantus SoloStar 100 UNIT/ML Vitamin B12 (Cyanocobal sesay) Vitamin B12 (Cyanocobal sesay) - 00:00: 00 No 1000ug [facility] Ferrous Sulfate 325 (65 Fe) MG Ferrous [...] Vaccine Moderna COVID-19 Vaccine 2020-05-01 11:51:00 Completed [facility] Moderna COVID-19 Vaccine Moderna COVID-19 Vaccine 2020-05-01 11:51:00 Completed [facility] Moderna COVID-19 Vaccine Moderna COVID-19 Vaccine 2020-05-01 11:51:00 Completed [facility] Moderna COVID-19 Vaccine Moderna COVID-19 Vaccine 2020-05-01 11:51:00 Completed [facility] Moderna COVID-19 Vaccine Moderna COVID-19 Vaccine 2020-05-01 11:51:00 Completed [facility] Moderna COVID-19 Vaccine Moderna COVID-19 Vaccine 2020-05-01 11:51:00 Completed [facility] Moderna COVID-19 Vaccine Moderna COVID-19 Vaccine 2020-05-01 11:51:00 Completed [facility] Moderna COVID-19 Vaccine Moderna COVID-19 Vaccine 2020-05-01 11:51:00 Completed [facility] Moderna COVID-19 Vaccine Moderna COVID-19 Vaccine 2020-04-02 11:50:00 Completed [facility] Moderna COVID-19 Vaccine Moderna COVID-19 Vaccine 2020-04-02 11:50:00 Completed [facility] Moderna COVID-19 Vaccine Moderna COVID-19 Vaccine 2020-04-02 11:50:00 Completed [facility] Moderna COVID-19 Vaccine Moderna COVID-19 Vaccine 2020-04-02 11:50:00 Completed [facility] Moderna COVID-19 Vaccine Moderna COVID-19 Vaccine 2020-04-02 11:50:00 Completed [facility] Moderna COVID-19 Vaccine Moderna COVID-19 Vaccine 2020-04-02 11:50:00 Completed [facility] Moderna COVID-19 Vaccine Moderna COVID-19 Vaccine 2020-04-02 11:50:00 Completed [facility] Moderna COVID-19 Vaccine Moderna COVID-19 Vaccine 2020-04-02 11:50:00 Completed [facility] FLUZONE HIGH DOSE OVER 65 FLUZONE HIGH DOSE OVER 65 2019-12-05 11:07:00 Completed [facility] FLUZONE HIGH DOSE OVER 65 FLUZONE HIGH DOSE OVER 65 2019-12-05 11:07:00 Completed [facility] FLUZONE HIGH DOSE OVER 65 FLUZONE HIGH DOSE OVER 65 2019-12-05 11:07:00 Completed [facility] FLUZONE HIGH DOSE OVER 65 FLUZONE HIGH DOSE OVER 65 2019-12-05 11:07:00 Completed [facility] FLUZONE HIGH DOSE OVER 65 FLUZONE HIGH DOSE OVER 65 2019-12-05 11:07:00 Completed [facility] FLUZONE HIGH DOSE OVER 65 FLUZONE HIGH DOSE OVER 65 2019-12-05 11:07:00 Completed [facility] FLUZONE HIGH DOSE OVER 65 FLUZONE HIGH DOSE OVER 65 2019-12-05 11:07:00 Completed [facility] FLUZONE HIGH DOSE OVER 65 FLUZONE HIGH DOSE OVER 65 2019-12-05 11:07:00 Completed [facility] Prevnar 20 (PCV20) Prevnar 20 (PCV20) Unknown Completed [facility] FluAD Quad SD FluAD Quad SD Unknown Completed [facility] Moderna COVID-19 Vaccine Moderna COVID-19 Vaccine Unknown Completed [facility] FLUZONE HIGH DOSE OVER 65 FLUZONE HIGH DOSE OVER 65 Unknown Completed [facility] Prevnar 20 (PCV20) Prevnar 20 (PCV20) Unknown Completed [facility] FluAD Quad SD FluAD Quad SD Unknown Completed [facility] Moderna COVID-19 Vaccine Moderna COVID-19 Vaccine Unknown Completed [facility] FLUZONE HIGH DOSE OVER 65 FLUZONE HIGH DOSE OVER 65 Unknown Completed [facility] Prevnar 20 (PCV20) Prevnar 20 (PCV20) Unknown Completed [facility] FluAD Quad SD FluAD Quad SD Unknown Completed [facility] Moderna COVID-19 Vaccine Moderna COVID-19 Vaccine Unknown Completed [facility] FLUZONE HIGH DOSE OVER 65 FLUZONE HIGH DOSE OVER 65 Unknown Completed [facility] Prevnar 20 (PCV20) Prevnar 20 (PCV20) Unknown Completed [facility] FluAD Quad SD FluAD Quad SD Unknown Completed [facility] Moderna COVID-19 Vaccine Moderna COVID-19 Vaccine Unknown Completed [facility] FLUZONE HIGH DOSE OVER 65 FLUZONE HIGH DOSE OVER 65 Unknown Completed [facility] Prevnar 20 (PCV20) Prevnar 20 (PCV20) Unknown Completed [facility] FluAD Quad SD FluAD Quad SD Unknown Completed [facility] Moderna COVID-19 Vaccine Moderna COVID-19 Vaccine Unknown Completed [facility] FLUZONE HIGH DOSE OVER 65 FLUZONE HIGH DOSE OVER 65 Unknown Completed [facility] Prevnar 20 (PCV20) Prevnar 20 (PCV20) Unknown Completed [facility] Fluad (aIIV4) - SDS - 0.5mL Fluad (aIIV4) - SDS - 0.5mL Unknown Completed [facility] Moderna COVID-19 Vaccine Moderna COVID-19 Vaccine Unknown Completed [facility] FLUZONE HIGH DOSE OVER 65 FLUZONE HIGH DOSE OVER 65 Unknown Completed [facility] Prevnar 20 (PCV20) Prevnar 20 (PCV20) Unknown Completed [facility] Fluad (aIIV4) - SDS - 0.5mL Fluad (aIIV4) - SDS - 0.5mL Unknown Completed [facility] Moderna COVID-19 Vaccine Moderna COVID-19 Vaccine Unknown Completed [facility] FLUZONE HIGH DOSE OVER 65 FLUZONE HIGH DOSE OVER 65 Unknown Completed [facility] Prevnar 20 (PCV20) Prevnar 20 (PCV20) Unknown Completed [facility] Fluad (aIIV4) - SDS - 0.5mL Fluad (aIIV4) - SDS - 0.5mL Unknown Completed [facility] Moderna COVID-19 Vaccine Moderna COVID-19 Vaccine Unknown Completed [facility] FLUZONE HIGH DOSE OVER 65 FLUZONE HIGH DOSE OVER 65 Unknown Completed [facility] Prevnar 20 (PCV20) Prevnar 20 (PCV20) Unknown Completed [facility] Fluad (aIIV4) - SDS - 0.5mL Fluad (aIIV4) - SDS - 0.5mL Unknown Completed [facility] Moderna COVID-19 Vaccine Moderna COVID-19 Vaccine Unknown Completed [facility] FLUZONE HIGH DOSE OVER 65 FLUZONE HIGH DOSE OVER 65 Unknown Completed [facility] Prevnar 20 (PCV20) Prevnar 20 (PCV20) Unknown Completed [facility] Fluad (aIIV4) - SDS - 0.5mL Fluad (aIIV4) - SDS - 0.5mL Unknown Completed [facility] Moderna COVID-19 Vaccine Moderna COVID-19 Vaccine Unknown Completed [facility] FLUZONE HIGH DOSE OVER 65 FLUZONE HIGH DOSE OVER 65 Unknown Completed [facility] Prevnar 20 (PCV20) Prevnar 20 (PCV20) Unknown Completed [facility] Fluad (aIIV4) - SDS - 0.5mL Fluad (aIIV4) - SDS - 0.5mL Unknown Completed [facility] Moderna COVID-19 Vaccine Moderna COVID-19 Vaccine Unknown Completed [facility] FLUZONE HIGH DOSE OVER 65 FLUZONE HIGH DOSE OVER 65 Unknown Completed [facility] Vital Signs Vital Name Observation Time Observation Value Comments S ource height 2023-12-21 07:50:00 71 [in_i] Commo n [facility] weight 2023-12-21 07:50:00 230 [lb_av] Comm on [facility] bmi 2023-12-21 07:50:00 32.07 kg/m2 Comm on [facility] height 2023-11-09 10:00:00 71 [in_i] Commo n [facility] weight 2023-11-09 10:00:00 237 [lb_av] Comm on [facility] temperature 2023-11-09 10:00:00 97.3 [degF] Com mon [facility] bmi 2023-11-09 10:00:00 33.05 kg/m2 Comm on [facility] oximetry 2023-11-09 10:00:00 98 % Commo n [facility] respiratory rate 2023-11-09 10:00:00 16 /min [facility] blood pressure systolic 2023-11-09 10:00:00 122 mm[Hg[facility] diastolic 2023-11-09 10:00:00 68 mm[Hg] [facility] height 2023-08-06 13:20:00 71 [in_i] Commo n [facility] weight 2023-08-06 13:20:00 251 [lb_av] Comm on [facility] temperature 2023-08-06 13:20:00 97.4 [degF] Com [facility] bmi 2023-08-06 13:20:00 35 kg/m2 Commo n [facility] oximetry 2023-08-06 13:20:00 98 % Commo n [facility] respiratory rate 2023-08-06 13:20:00 16 /min [facility] blood pressure systolic 2023-08-06 13:20:00 126 mm[Hg] [facility] blood pressure diastolic 2023-08-06 13:20:00 68 mm[Hg] [facility] height 2023-08-06 13:20:00 71 [in_i] Commo n [facility] weight 2023-08-06 13:20:00 251 [lb_av] Comm on [facility] temperature 2023-08-06 13:20:00 97.4 [degF] Com [facility] bmi 2023-08-06 13:20:00 35 kg/m2 Commo n [facility] oximetry 2023-08-06 13:20:00 98 % Commo n [facility] respiratory rate 2023-08-06 13:20:00 16 /min [facility] blood pressure systolic 2023-08-06 13:20:00 126 mm[Hg] [facility] blood pressure diastolic 2023-08-06 13:20:00 68 mm[Hg] [facility] height 2023-04-23 11:40:00 71 [in_i] Commo n [facility] weight 2023-04-23 11:40:00 245 [lb_av] Comm on [facility] bmi 2023-04-23 11:40:00 34.17 kg/m2 Comm on [facility] height 2022-12-28 15:00:00 71 [in_i] Commo n [facility] weight 2022-12-28 15:00:00 249 [lb_av] Comm on [facility] temperature 2022-12-28 15:00:00 96.5 [degF] Com mon [facility] bmi 2022-12-28 15:00:00 34.72 kg/m2 Comm on [facility] oximetry 2022-12-28 15:00:00 97 % Commo n [facility] respiratory rate 2022-12-28 15:00:00 16 /min [facility] blood pressure systolic 2022-12-28 15:00:00 130 mm[Hg] [facility] blood pressure diastolic 2022-12-28 15:00:00 74 mm[Hg] [facility] height 2022-10-28 15:20:00 71 [in_i] Commo n [facility] weight 2022-10-28 15:20:00 243 [lb_av] Comm on [facility] temperature 2022-10-28 15:20:00 97.1 [degF] Com mon [facility] bmi 2022-10-28 15:20:00 33.89 kg/m2 Comm on [facility] oximetry 2022-10-28 15:20:00 99 % Commo n [facility] respiratory rate 2022-10-28 15:20:00 16 /min [facility] blood pressure systolic 2022-10-28 15:20:00 130 mm[Hg] [facility] blood pressure diastolic 2022-10-28 15:20:00 72 mm[Hg] [facility] height 2022-09-28 15:40:00 71 [in_i] Commo n [facility] weight 2022-09-28 15:40:00 247 [lb_av] Comm on [facility] temperature 2022-09-28 15:40:00 97.5 [degF] Com mon [facility] bmi 2022-09-28 15:40:00 34.45 kg/m2 Comm on [facility] oximetry 2022-09-28 15:40:00 98 % Commo n [facility] respiratory rate 2022-09-28 15:40:00 16 /min [facility] blood pressure systolic 2022-09-28 15:40:00 132 mm[Hg] [facility] blood pressure diastolic 2022-09-28 15:40:00 78 mm[Hg] [facility] height 2022-08-28 15:20:00 71 [in_i] Commo n [facility] weight 2022-08-28 15:20:00 249 [lb_av] Comm on [facility] temperature 2022-08-28 15:20:00 97.2 [degF] Com [facility] bmi 2022-08-28 15:20:00 34.72 kg/m2 Comm on [facility] oximetry 2022-08-28 15:20:00 99 % Commo n [facility] respiratory rate 2022-08-28 15:20:00 16 /min [facility] blood pressure systolic 2022-08-28 15:20:00 122 mm[Hg] [facility] blood pressure diastolic 2022-08-28 15:20:00 70 mm[Hg] [facility] height 2022-05-27 14:00:00 71 [in_i] Commo n [facility] weight 2022-05-27 14:00:00 244 [lb_av] Comm on [facility] temperature 2022-05-27 14:00:00 97.6 [degF] Com mon [facility] bmi 2022-05-27 14:00:00 34.03 kg/m2 Comm on [facility] oximetry 2022-05-27 14:00:00 98 % Commo n [facility] respiratory rate 2022-05-27 14:00:00 16 /min [facility] blood pressure systolic 2022-05-27 14:00:00 134 mm[Hg] [facility] blood pressure diastolic 2022-05-27 14:00:00 78 mm[Hg] [facility] height 2022-05-27 14:40:00 71 [in_i] Commo n [facility] weight 2022-05-27 14:40:00 244 [lb_av] Comm on [facility] temperature 2022-05-27 14:40:00 97.6 [degF] Com mon [facility] bmi 2022-05-27 14:40:00 34.03 kg/m2 Comm on [facility] oximetry 2022-05-27 14:40:00 98 % Commo n [facility] respiratory rate 2022-05-27 14:40:00 16 /min Common [facility] blood pressure systolic 2022-05-27 14:40:00 134 mm[Hg] [facility] blood pressure diastolic 2022-05-27 14:40:00 78 mm[Hg] [facility] height 2021-12-31 13:20:00 71 [in_i] Commo n [facility] weight 2021-12-31 13:20:00 246.2 [lb_av] Co mmon [facility] temperature 2021-12-31 13:20:00 97.8 [degF] Com mon [facility] bmi 2021-12-31 13:20:00 34.33 kg/m2 Comm on [facility] oximetry 2021-12-31 13:20:00 97 % Commo n [facility] respiratory rate 2021-12-31 13:20:00 17 /min [facility] blood pressure systolic 2021-12-31 13:20:00 124 mm[Hg] [facility] blood pressure diastolic 2021-12-31 13:20:00 63 mm[Hg] [facility] height 2021-11-20 08:00:00 71 [in_i] Commo n [facility] weight 2021-11-20 08:00:00 250 [lb_av] Comm on [facility] temperature 2021-11-20 08:00:00 98.6 [degF] Com mon [facility] bmi 2021-11-20 08:00:00 34.86 kg/m2 Comm on [facility] height 2021-08-19 09:40:00 71 [in_i] Commo n [facility] weight 2021-08-19 09:40:00 257.6 [lb_av] Co mmon [facility] temperature 2021-08-19 09:40:00 97.8 [degF] Com mon [facility] bmi 2021-08-19 09:40:00 35.92 kg/m2 Comm on [facility] oximetry 2021-08-19 09:40:00 98 % Commo n [facility] respiratory rate 2021-08-19 09:40:00 17 /min Common [facility] blood pressure systolic 2021-08-19 09:40:00 128 mm[Hg] [facility] blood pressure diastolic 2021-08-19 09:40:00 76 mm[Hg] [facility] height 2021-07-09 15:00:00 71 [in_i] Commo n [facility] weight 2021-07-09 15:00:00 259.8 [lb_av] Co mmon [facility] temperature 2021-07-09 15:00:00 97.9 [degF] Com [facility] bmi 2021-07-09 15:00:00 36.23 kg/m2 Comm on [facility] oximetry 2021-07-09 15:00:00 98 % Commo n [facility] respiratory rate 2021-07-09 15:00:00 16 /min Common [facility] blood pressure systolic 2021-07-09 15:00:00 128 mm[Hg] [facility] blood pressure diastolic 2021-07-09 15:00:00 72 mm[Hg] [facility] height 2021-05-27 13:00:00 71 [in_i] Commo n [facility] weight 2021-05-27 13:00:00 259.4 [lb_av] Co [facility] temperature 2021-05-27 13:00:00 98.1 [degF] Com [facility] bmi 2021-05-27 13:00:00 36.18 kg/m2 Comm on [facility] oximetry 2021-05-27 13:00:00 97 % Commo n [facility] respiratory rate 2021-05-27 13:00:00 16 /min Common [facility] blood pressure systolic 2021-05-27 13:00:00 142 mm[Hg] [facility] blood pressure diastolic 2021-05-27 13:00:00 80 mm[Hg] Common [facility] height 2021-04-28 15:40:00 71 [in_i] Commo n [facility] weight 2021-04-28 15:40:00 264.0 [lb_av] Co [facility] temperature 2021-04-28 15:40:00 97.9 [degF] Com mon [facility] bmi 2021-04-28 15:40:00 36.82 kg/m2 Comm on [facility] oximetry 2021-04-28 15:40:00 97 % Commo n [facility] respiratory rate 2021-04-28 15:40:00 18 /min Common [facility] blood pressure systolic 2021-04-28 15:40:00 138 mm[Hg] [facility] blood pressure diastolic 2021-04-28 15:40:00 74 mm[Hg] [facility] height 2021-01-08 14:20:00 71 [in_i] Commo n [facility] weight 2021-01-08 14:20:00 269 [lb_av] Comm on [facility] temperature 2021-01-08 14:20:00 97.1 [degF] Com [facility] bmi 2021-01-08 14:20:00 37.51 kg/m2 Comm on [facility] oximetry 2021-01-08 14:20:00 97 % Commo n [facility] respiratory rate 2021-01-08 14:20:00 16 /min [facility] blood pressure systolic 2021-01-08 14:20:00 124 mm[Hg] [facility] blood pressure diastolic 2021-01-08 14:20:00 80 mm[Hg] [facility] Encounters Start Date/Time End Date/Time Encounter Type Admission Type Attending Clinicians Care Facility Care Department Encounter ID Source 2024-01-03 08:44:00 Outpatient Crissy Villalpando [facility] [id number] [facility] 2022-01-05 14:08:00 Outpatient Crissy Villalpando [facility] [id number] [facility] 2021-12-30 08:21:00 Outpatient VillalpandoCrissy [facility] [id number] [facility] 2021-11-18 07:19:00 Outpatient VillalpandoCrissy [facility] [id number] [facility] 2021-08-15 15:22:00 Outpatient VillalpandoCrissy [facility] [id number] [facility] 2021-07-10 08:37:01 Outpatient VillalpandoEvei [facility] [id number] [facility] 2021-07-07 14:02:01 Outpatient VillalpandoCrissy [facility] [id number] [facility] 2021-05-23 09:30:01 Outpatient VillalpandoCrissy [facility] [id number] [facility] 2021-05-15 13:36:01 Outpatient VillalpandoEvei [facility] [id number] [facility] 2021-04-25 11:06:01 Outpatient VillalpandoEvei [facility] [id number] [facility] 2021-04-11 08:20:00 Outpatient SlovanAlycia mena [facility] [id number] [facility] 2021-04-04 13:56:00 Outpatient SlovanAlycia mena [facility] [id number] [facility] 2021-03-26 14:13:45 Outpatient Slovan, Alycia [facility] [id number] [facility] 2021-03-26 14:10:24 Outpatient Slovan, Alycia [facility] [id number] [facility] 2021-03-26 14:07:08 Outpatient Alycia Hoffman [facility] [id number] [facility] 2021-03-26 12:28:12 Outpatient Alycia Hoffman [facility] [id number] [facility] 2021-03-26 11:29:17 Outpatient Alycia Hoffman [facility] [id number] [facility] 2023-12-21 00:00:00 2023-12-21 00:00:00 OFFICE VISIT ESTAB PT LEVEL 4 [facility] [id number] [facility] 2023-12-20 00:00:00 2023-12-20 00:00:00 (TEL) [facility] [id number] [facility] 2023-12-15 00:00:00 2023-12-15 00:00:00 (TEL) [facility] [id number] [facility] 2023-11-09 00:00:00 2023-11-09 00:00:00 OFFICE VISIT ESTAB PT LEVEL 4 STLMLC STLMLC [id number] [facility] 2023-08-09 00:00:00 2023-08-09 00:00:00 (TEL) STLMLC STLMLC [id number] [facility] 2023-08-06 00:00:00 2023-08-06 00:00:00 SUB ANNUAL [facility] WELLNESS VISIT STLMLC STLMLC [id number] [facility] 2023-08-06 00:00:00 2023-08-06 00:00:00 OFFICE VISIT ESTAB PT LEVEL 4 STLMLC STLMLC [id number] [facility] 2023-04-23 00:00:00 2023-04-23 00:00:00 OFFICE VISIT ESTAB PT LEVEL 4 STLMLC STLMLC [id number] [facility] 2023-01-15 00:00:00 2023-01-15 00:00:00 (TEL) STLMLC STLMLC [id number] [facility] 2022-12-28 00:00:00 2022-12-28 00:00:00 OFFICE VISIT ESTAB PT LEVEL 4 STLMLC STLMLC [id number] [facility] 2022-10-28 00:00:00 2022-10-28 00:00:00 OFFICE VISIT ESTAB PT LEVEL 4 STLMLC STLMLC [id number] [facility] 2022-10-21 00:00:00 2022-10-21 00:00:00 (TEL) STLMLC STLMLC [id number] [facility] 2022-09-28 00:00:00 2022-09-28 00:00:00 OFFICE VISIT ESTAB PT LEVEL 4 STLMLC STLMLC [id number] [facility] 2022-08-28 00:00:00 2022-08-28 00:00:00 OFFICE VISIT ESTAB PT LEVEL 5 STLMLC STLMLC [id number] [facility] 2022-07-31 00:00:00 2022-07-31 00:00:00 (TEL) STLMLC STLMLC [id number] [facility] 2022-05-27 00:00:00 2022-05-27 00:00:00 SUB ANNUAL [facility] WELLNESS VISIT STLMLC STLMLC [id number] [facility] 2022-05-27 00:00:00 2022-05-27 00:00:00 OFFICE VISIT ESTAB PT LEVEL 4 STLMLC STLMLC [id number] [facility] 2022-04-02 00:00:00 2022-04-02 00:00:00 (TEL) STLMLC STLMLC [id number] [facility] 2021-12-31 00:00:00 2021-12-31 00:00:00 (TEL) STLMLC STLMLC [id number] [facility] 2021-12-31 00:00:00 2021-12-31 00:00:00 OFFICE VISIT EST PT LEVEL 3 STLMLC STLMLC [id number] [facility] 2021-12-23 00:00:00 2021-12-23 00:00:00 (TEL) STLMLC STLMLC [id number] [facility] 2021-11-21 00:00:00 2021-11-21 00:00:00 (TEL) STLMLC STLMLC [id number] [facility] 2021-11-20 00:00:00 2021-11-20 00:00:00 OFFICE VISIT ESTAB PT LEVEL 4 STLMLC STLMLC [id number] [facility] 2021-11-14 00:00:00 2021-11-14 00:00:00 (TEL) STLMLC STLMLC [id number] [facility] 2021-09-11 00:00:00 2021-09-11 00:00:00 (TEL) STLMLC STLMLC [id number] [facility] 2021-09-11 00:00:00 2021-09-11 00:00:00 (TEL) STLMLC STLMLC [id number] [facility] 2021-08-27 00:00:00 2021-08-27 00:00:00 (TEL) STLMLC STLMLC [id number] [facility] 2021-08-19 00:00:00 2021-08-19 00:00:00 OFFICE VISIT EST PT LEVEL 3 STLMLC STLMLC [id number] [facility] 2021-07-09 00:00:00 2021-07-09 00:00:00 OFFICE VISIT ESTAB PT LEVEL 4 STLMLC STLMLC [id number] [facility] 2021-05-27 00:00:00 2021-05-27 00:00:00 OFFICE VISIT ESTAB PT LEVEL 4 STLMLC STLMLC [id number] [facility] 2021-04-28 00:00:00 2021-04-28 00:00:00 OFFICE VISIT ESTAB PT LEVEL 4 STLMLC STLMLC [id number] [facility] 2021-01-08 00:00:00 2021-01-08 00:00:00 OFFICE VISIT ESTAB PT LEVEL 4 STLMLC STLMLC [id number] [facility] 2020-11-13 00:00:00 2020-11-13 00:00:00 Outpatient STLMLC STLMLC [id number] [facility] 2020-10-01 00:00:00 2020-10-01 00:00:00 Outpatient STLMLC STLMLC [id number] [facility] 2020-07-17 00:00:00 2020-07-17 00:00:00 Outpatient STLMLC STLMLC [id number] [facility] 2020-06-25 00:00:00 2020-06-25 00:00:00 Outpatient STLMLC STLMLC [id number] [facility] 2020-03-27 00:00:00 2020-03-27 00:00:00 Outpatient STLMLC STLMLC [id number] [facility] 2019-12-05 00:00:00 2019-12-05 00:00:00 Outpatient STLMLC STLMLC [id number] [facility] 2019-09-04 08:20:00 2019-09-04 08:20:00 [facility] [id number] [facility] 2019-03-06 08:00:00 2019-03-06 08:00:00 [facility] [id number] [facility] 2018-10-03 10:15:00 2018-10-03 10:15:00 [facility] [id number] [facility] 2018-08-30 13:00:00 2018-08-30 13:00:00 [facility] [id number] [facility] 2018-06-17 09:30:00 2018-06-17 09:30:00 [facility] [id number] [facility] 2018-02-16 08:30:00 2018-02-16 08:30:00 Outpatient [facility] [id number] [facility] Results Test Description Test Time Test Comments Results Result Co mments Source HEMOGLOBIN [id number] 00:00:00* Test Item Value Reference Range Interpretation [...] result as normal/abnormal. CALCIUM (test code = 86360-8) 9.2 mg/dL See_Comment N [Automated messa ge] [...] result as normal/abnormal. GLOBULIN (test code = 24713-1) 3.2 g/dL (calc) See_Comment N [Automated message] [...] result as normal/abnormal. CALCIUM (test code = 46674-2) 9.8 mg/dL See_Comment N [Automated messa ge] [...] result as normal/abnormal. GLOBULIN (test code = 39274-3) 3.4 g/dL (calc) See_Comment N [Automated message] [...] = 2885-2) 7.3 g/dL See_Comment N [Automated [employer]] The system which generated this result transmitted reference range: 6.1-8.1 g/dL. The reference range was not used to interpret this result as normal/abnormal. SODIUM (test code = 2951-2) 133 mmol/L See_Comment L [Automated [employer] e994] The system which generated this result transmitted reference range: 135-146 mmol/L. The reference range was not used to interpret this result as normal/abnormal. UREA NITROGEN (BUN) (test code = 3094-0) 39 mg/dL See_Comment H [Automated message] The system which generated this result transmitted reference range: 7-25 mg/dL. The reference range was not used to interpret this result as normal/abnormal. HEMOGLOBIN [id number] 00:00:00* Test Item Value Reference Range Interpretation Comme nts A1C (test code = 4548-4) 8.1 HEMOGLOBIN [id number] 00:00:00* Test Item Value Reference Range Interpretation Comme nts A1C (test code = 4548-4) 8.8 ColonoscopyColonoscopy
[2024-01-04] MEDS ORDERED: NA CHLORIDE 0.9% 2,000 ML ONE (10:21)
[2024-01-04] MEDS ORDERED: CALCIUM GLUCONATE 1 GM IVPB 2 GM/100 ML BAG IV ONE (10:27)
[2024-01-04] MEDS ORDERED: NOREPINEPHRINE BITARTRATE/D5W 4 MG/250 ML KIT IV ONE (10:46)
[2024-01-04 11:17] LABS: Absolute Basophils 0.1 K/uL (0-0.5); Absolute Eosinophils 0.1 K/uL (0-0.5); Absolute Lymphocytes (CBC) 2.2 K/uL (0.7-4.9); Absolute Monocytes 0.7 K/uL (0.1-1.3); Absolute Neutrophil 10.4 K/uL (1.8-8.0); Basophils % 0.4 % (0-1.3); Eosinophils % 0.7 % (0-4.4); Hemoglobin 7.3 g/dL (13.6-17.9); Lymphocytes % 16.7 % (15.3-44.8); MCH 28.5 pg (27.0-35.0); MCHC 30.5 g/dL (32.0-36.0); MCV 93.4 fL (80-100); MPV 8.9 fL (7.6-11.3); Monocytes % 5.1 % (3.3-12.3); Neutrophils % 77.1 % (41.7-73.7); Nucleated Red Blood Cells % 0.1 % (0-0); Platelets 201 thou/uL (152-406); RBC Red Blood Cell Count 2.57 M/uL (4.33-5.43); Red Cell Distribution Width 15.8 % (12.1-15.2)
[2024-01-04 11:21] LABS: PT Prothrombin Time 16.4 SECONDS (9.4-12.5); PTT, Activated Partial Thromb 35.5 SECONDS (24.3-36.9); Protime INR 1.48
--- NOTE | 2024-01-04 11:35 | RAD REPORT ---
Procedure: Chest Single View HISTORY: Hypotension COMPARISON: November 2023 FINDINGS: Endotracheal tube with its tip at the level of the aortic arch. Nasogastric tube within the stomach. Central venous catheter in good position. Lungs appear grossly clear. Heart is mildly to moderately enlarged.
[2024-01-04 11:36] LABS: Albumin 2.1 g/dL (3.4-5.0); Albumin/Globulin Ratio 0.5 (1.1-1.8); Anion Gap 23.8 mEq/L (5.0-15.0); Bilirubin Total 0.7 mg/dL (0.2-1.0); Globulin 4.4 g/dL (2.3-3.5); Potassium 5.8 mEq/L (3.5-5.1); Protein, Total 6.5 g/dL (6.4-8.2)
[2024-01-04 11:39] LABS: Troponin High Sensitivity 1516.4 pg/mL (<58.9)
[2024-01-04] MEDS ORDERED: NA CHLORIDE 0.9% 250 ML ONE ×2 (11:52→13:02)
--- NOTE | 2024-01-04 12:01 | ER ---
Nurse's Notes [facility] Name: Win Zheng Age: 73 yrs Sex: Male : 1950 Arrival Date: 01/04/2024 Time: 10:13 Bed 3 Private MD: Diagnosis: Altered mental status, GI bleed, renal failure, cardiopulmonary resuscitation with ROSC, shock, NSTEMI Presentation: 01/03 10:15 Chief complaint: EMS states: Family called because pt passed out on the toilet, BP low ph for EMS 80s systolic, pt hx of dialysis, due for dialysis today, also had recent cardiac catheterization, upon arrival to ED pt has decreased LOC. 10:15 Method Of Arrival: EMS: [facility] ph 10:15 Care prior to arrival: Medication(s) given: zofran 4 mg, Glucose check: 200. ph 10:55 Compressions began at 10:55. ph 11:10 Acuity: RHONA 1 ph 12:14 Risk Assessment: Do you want to hurt yourself or someone else? Unable to obtain. ph 13:13 Coronavirus screen: Vaccine status: unable to obtain. Ebola Screen: No symptoms or ph risks identified at this time. Initial Sepsis Screen: Does the patient meet any 2 criteria? No. Patient's initial sepsis screen is negative. Does the patient have a suspected source of infection? No. Patient's initial sepsis screen is negative. Onset of symptoms was January 04, 2024. Historical: - Allergies: 13:02 No Known Allergies; ph - PMHx: 13:02 Atrial Fib; cirrhosis of liver; Diabetes - NIDDM; Hyperlipidemia; Hypertension; ph - Immunization history:: Adult Immunizations unknown. - Infectious Disease History:: unable to obtain. - Social history:: Smoking status: unknown. Screenin:13 Abuse screen: Denies threats or abuse. Denies injuries from another. Nutritional ph screening: No deficits noted. Tuberculosis screening: No symptoms or risk factors identified. 12:55 [facility] ED Fall Risk Assessment (Adult) History of falling in the last 3 months, ph including since admission No falls in past 3 months (0 pts) Confusion or Disorientation Yes (5 pts) Intoxicated or Sedated No (0 pts) Impaired Gait Yes (1 pt) Mobility Assist Device Used No (0 pt) Altered Elimination Yes (1 pt) Score/Fall Risk Level 3 or more points = High Risk Oriented to surroundings, Maintained a safe environment, Hourly rounding (assess needs \T\ fall precautionary measures) done, Used ambulatory aids as needed (educated on \T\ assisted with). Assessment: 10:15 General: Appears distressed, Behavior is drowsy, listless, quiet. Pain: Unable to use ph pain scale. Patient is disoriented. Neuro: Level of Consciousness is awake, lethargic, listless, Oriented to person, place, situation, Facial symmetry appears normal. Cardiovascular: Capillary refill is sluggish in bilateral fingers. Cardiovascular: Dialysis shunt: in the anterior aspect of right upper chest. Respiratory: Airway is patent Respiratory effort is shallow, Respiratory pattern is agonal. GI: Abdomen is round Last BM was January 04, 2024. stool dark in appearance. Derm: Skin is clammy, Skin is dusky, Skin temperature is cool. 10:17 Reassessment: BP low and pt noted to have agonal respirations and decreased LOC, Dr sindy Conway notified and at bedside, preparing to intubate pt, defibrillator pads placed to pt. 10:55 Cardiovascular: Rhythm is asystole. ph 10:55 CPR assessment: unresponsive, intubated, Ambu ventilation, pulses present w/ ph compressions. 11:00 Cardiovascular: Rhythm is ventricular fibrillation. ph 11:02 Cardiovascular: Rhythm is ventricular fibrillation. ph 12:05 Reassessment: ROSC achieved, HR 66. ph 12:53 Reassessment: Report called to ANA Suarez at [facility], [facility] at bedside to transport pt. 01/04 05:30 Reassessment: received report from lab about blood culture results. Blood cultures ha1 positive for gram positive, aerobic culture. Vital Signs: 01/03 11:10 BP 92 / 48; Pulse 71; Resp 16 A; Pulse Ox 97% on ETT vent; ph 11:22 Weight 96.62 kg; ph 12:14 BP 68 / 37; Pulse 77; Resp 18; Temp 93.5(Ca); Pulse Ox 100% on ETT vent; ph ED Course: 10:14 Patient arrived in ED. ph 10:14 Yamilet Conway MD is Attending Physician. sp3 10:15 Arm band placed on Patient placed in an exam room. ph 10:20 Inserted saline lock: 20 gauge in right antecubital area, using aseptic technique. ph 10:42 Assisted provider with central line placement. Set up central line tray. Triple lumen ph line placed in left subclavian. Line placed by Lucita Roa tech ed/woodshop teacher verified by blood return, Dressed with Tape, Tegaderm, Blood was collected. Patient tolerated poorly. Patient \T\ family education about procedure, CLABSI prevention and S/S of infection? No. Time-out/Briefing performed prior to start of procedure? Yes. Was handwashing/sanitizing done immediately prior to procedure? Yes. Was patient positioned to in a way to prevent air embolism? Yes. Was procedure site sterilized? Yes, with Was the site allowed to dry? Yes. Was local anesthetic and/or sedation utilized? Yes. During the procedure, did the Practitioner(s) maintain a sterile field? Yes. Were unused ports clamped during insertion? Yes. Was a 2nd qualified MD obtained after 3 unsuccessful insertion attempts? No. Was blood aspirated from each lumen? Yes. After the procedure, did the Practitioner(s) clean the site and apply a sterile dressing? Yes. 10:51 Assisted provider with intubation using 7.5 mm ETT via oral route. ET tube secured at ph 23cm at the lips. Set up intubation tray. Intubated by Yamilet Conway MD Placement verified by CO2 detector w/ + color change, auscultating bilateral breath sounds, Patient tolerated well. 10:52 NGT: inserted other via oral route verified placement of air over stomach, verified ph return of gastric contents, to intermittent suction. Returned bright red blood. 11:00 Defibrillated with 200 joules. Defibrillated with 200 joules. ph 11:10 Lucita Roa, RN is Primary Nurse. ph 11:10 Triage completed. ph 11:23 Chest Single View XRAY In Process Unspecified. EDMS 11:50 Early cath inserted, using sterile technique, 16 Fr., by ED staff, balloon inflated, to ph gravity drainage, urine specimen collected. 11:55 Thermoregulation: Chato blanket applied. ph 12:02 Defibrillated with 200 joules. ph 12:15 Cleaned of incontinence. ph 12:40 Inserted saline lock: 20 gauge in right upper arm, using aseptic technique. Accessed ss peripheral vein via ultrasound, utilizing dynamic ultrasound technique 20 gauge 10 CM POWERGLIDE MIDLINE Good blood return. Flushes easily. per Hui Singh RN. 13:03 Patient has correct armband on for positive identification. Placed in gown. Bed in low ph position. Call light in reach. Side rails up X2. Client placed on continuous cardiac and pulse oximetry monitoring. NIBP monitoring applied. hand paint mixer on. Pulse ox on. 13:22 Patient transferred, IV remains in place. ph 13:25 pt accepted in transfer to [facility] by dr Whalen admin approval given by Andreea Ruiz,pt going to Er. Administered Medications: 10:48 Drug: Etomidate IVP 20 mg IVP once Route: IVP; Site: left subclavian; ph 11:00 Follow up: Response: No adverse reaction ph 10:49 Drug: Rocuronium IVP 80 mg IVP once Route: IVP; Site: left subclavian; ph 11:00 Follow up: Response: No adverse reaction ph 10:50 Drug: NS 0.9% IV 1000 ml IV at 1000 ml once; to be given as a bolus over 60 minutes ph Route: IV; Rate: 1000 ml; Site: left subclavian; 12:00 Follow up: Response: No adverse reaction; IV Status: Completed infusion; IV Intake: ph 1000ml 10:50 Drug: EPINEPHrine 0.1mg/mL 1:10,000 1 mg IVP once Route: IVP; Site: left subclavian; ph 11:00 Follow up: Response: No adverse reaction ph 10:50 Drug: Atropine 1 mg IVP once Route: IVP; Site: left subclavian; ph 11:10 Follow up: Response: No adverse reaction ph 10:50 Drug: Calcium Chloride 1 grams IVP once Route: IVP; Site: left subclavian; ph 11:00 Follow up: Response: No adverse reaction ph 10:56 Drug: EPINEPHrine 0.1mg/mL 1:10,000 1 mg IVP once Route: IVP; Site: left subclavian; ph 11:00 Follow up: Response: No adverse reaction ph 10:56 Drug: Calcium Chloride 1 grams IVP once Route: IVP; Site: left subclavian; ph 11:10 Follow up: Response: No adverse reaction ph 10:56 Drug: Calcium Chloride 1 grams IVP once Route: IVP; Site: left subclavian; ph 11:00 Follow up: Response: No adverse reaction ph 10:57 Drug: Sodium Bicarbonate IVP 50 mEq IVP once Route: IVP; Site: left subclavian; ph 11:00 Follow up: Response: No adverse reaction ph 10:57 Drug: Sodium Bicarbonate 1 amp IVP once; (50 mL); equals 50 mEq Route: IVP; Site: left ph subclavian; 11:00 Follow up: Response: No adverse reaction ph 10:59 Drug: Calcium Chloride 1 grams IVP once Route: IVP; Site: left subclavian; ph 11:00 Follow up: Response: No adverse reaction ph 10:59 Drug: Calcium Chloride 1 grams IVP once Route: IVP; Site: left subclavian; ph 11:00 Follow up: Response: No adverse reaction ph 11:01 Drug: EPINEPHrine 0.1mg/mL 1:10,000 1 mg IVP once Route: IVP; Site: left subclavian; ph 11:05 Follow up: Response: No adverse reaction ph 12:00 Drug: Sodium Bicarbonate 1 amp IVP once; (50 mL); equals 50 mEq Route: IVP; Site: left ph subclavian; 12:30 Follow up: Response: No adverse reaction ph 12:03 Drug: Calcium Gluconate IVPB 2 grams IVPB once over 60 mins; (mix in NS 100 mL) Route: ph IVPB; Infused Over: 60 mins; Site: left subclavian; 13:00 Follow up: Response: No adverse reaction; IV Status: Completed infusion ph 12:04 Drug: amiodarone 300 mg IVP once Route: IVP; Site: left subclavian; ph 12:30 Follow up: Response: No adverse reaction ph 12:05 Drug: Sodium Bicarbonate 1 amp IVP once; (50 mL); equals 50 mEq Route: IVP; Site: left ph subclavian; 12:30 Follow up: Response: No adverse reaction ph 12:05 Drug: Calcium Chloride 1 grams IVP once Route: IVP; Site: left subclavian; ph 12:30 Follow up: Response: No adverse reaction ph 12:05 Drug: Calcium Chloride 1 grams IVP once Route: IVP; Site: left subclavian; ph 12:30 Follow up: Response: No adverse reaction ph 12:06 Drug: Atropine 1 mg IVP once Route: IVP; Site: left subclavian; ph 12:30 Follow up: Response: No adverse reaction ph 12:09 Drug: NS 0.9% IV 1000 ml IV at 1000 ml once; to be given as a bolus over 10 minutes ph Route: IV; Rate: 1000 ml; Site: left subclavian; 13:00 Follow up: Response: No adverse reaction; IV Status: Completed infusion; IV Intake: ph 1000ml 12:20 Drug: Norepinephrine IV 0.1 mcg/kg/min IV at calculated rate See Administration ph Instructions; (Standard concentration 4 mg / 250 mL D5W); Recommended max rate 3 mcg/kg/min; Titrate 0.05 mcg/kg/min as often as every 5 minutes to achieve goal (see titration policy); Goal parameter MAP greater than 65 mmHg. Route: IV; Rate: calculated rate; Site: left subclavian; 12:30 Follow up: Response: No adverse reaction; IV Status: Infusion continued upon transfer ph 12:25 Drug: DOPamine IV (400mg/250mL Premix) 5 mcg/kg/min IV at calculated rate See ph Administration Instructions; Recommended max rate 20 mcg/kg/min; Titrate 2.5 mcg/kg/min as often as every 5 minutes to achieve goal (see titration policy); Goal parameter MAP greater than 65 mmHg. [*Low doses 1 to 4 mcg/kg/min may result in hypotension, decreased SVR*] Route: IV; Rate: calculated rate; Site: left subclavian; 12:30 Follow up: Response: No adverse reaction; IV Status: Infusion continued upon transfer ph 12:37 Drug: Pantoprazole IVP 80 mg IVP once Route: IVP; Site: left subclavian; ph 12:40 Follow up: Response: No adverse reaction ph 12:37 Drug: Cefepime IVPB 1 grams IVPB at 200 ml/hr once over 30 mins; (mix in NS 100 mL) ph Route: IVPB; Rate: 200 ml/hr; Infused Over: 30 mins; Site: left subclavian; 13:10 Follow up: Response: No adverse reaction; IV Status: Completed infusion ph 12:37 Drug: Octreotide IV 50 mcg IV at bolus once Route: IV; Rate: bolus; Site: left subclavian; 12:45 Follow up: Response: No adverse reaction; IV Status: Completed infusion ph 12:51 Drug: Octreotide Infusion (50 mcg/hr) - (Octreotide IV 500 mcg, NS 0.9% IV 500 ml) IV ph at 50 ml/hr continuous Route: IV; Rate: 50 ml/hr; Site: right upper arm; 13:00 Follow up: Response: No adverse reaction; IV Status: Infusion continued upon transfer ph 12:52 Drug: Pantoprazole IV 8 mg/hr IV at 25 ml/hr continuous; (Standard dilution is 80 mg in ph 250 mL NS) Route: IV; Rate: 25 ml/hr; Site: right upper arm; 13:00 Follow up: Response: No adverse reaction; IV Status: Infusion continued upon transfer ph Medication: 12:00 Blood products: PRBCs X 1 unit given. ph 12:45 Blood products: PRBCs X 1 unit given. ph 13:23 VIS not applicable for this client. ph Intake: 12:00 IV: 1000ml; Total: 1000ml. ph 13:00 IV: 1000ml; Total: 2000ml. ph Outcome: 11:59 ER care complete, transfer ordered by . sp3 13:14 Outcome Resuscitation successful ph 13:14 Transferred by ground EMS [facility]. to [facility], Transfer form completed. X-rays sent w/ patient. 13:14 Condition: stable 13:35 Patient left the ED. ph Signatures: Dispatcher [employer] EDMS Hui López, RN ANA Lucita Roa RN RN ph Patel, Setul, MD MD sp3 Laurie Nava RN RN [facility] Melinda Dee 6 Corrections: (The following items were deleted from the chart) 12:25 12:11 Rocuronium IVP 80 mg IVP in left subclavian ph ph 12:25 12:12 Etomidate IVP 20 mg IVP in left subclavian ph ph 12:26 12:25 NS 0.9% IV 1000 ml IV at 1000 ml in left subclavian ph ph 12:28 10:40 Etomidate IVP 20 mg IVP in left subclavian ph ph 12:28 10:11 Rocuronium IVP 80 mg IVP in left subclavian ph ph 12:29 12:09 Sodium Bicarbonate IVP 50 mEq IVP in left subclavian ph ph 12:29 12:29 Sodium Bicarbonate IVP 1 amp IVP in left subclavian ph ph 12:31 12:09 Calcium Gluconate IVPB 2 grams IVPB in left subclavian over 60 mins ph ph 12:32 12:09 DOPamine IV (400mg/250mL Premix) 483.1 mcg/min IV at calculated rate in left ph subclavian ph 12:32 12:09 Norepinephrine IV 9.662 mcg/min IV at calculated rate in left subclavian ph ph 12:33 10:56 Calcium Chloride IVP 1 grams IVP in left subclavian ph ph 12:34 12:33 Calcium Chloride IVP 1 grams IVP in left subclavian ph ph 12:39 12:37 Calcium Chloride IVP 1 grams IVP in left subclavian ph ph 12:40 12:40 Calcium Chloride IVP 1 grams IVP in left subclavian ph ph 12:40 12:40 Atropine IVP 1 mg IVP in left subclavian ph ph 13:12 10:15 Compressions began at 10:55. ph ph 13:16 12:40 Inserted saline lock: 20 gauge in right upper arm, using aseptic technique. ss Accessed peripheral vein via ultrasound, utilizing dynamic ultrasound technique Good blood return. Flushes easily. per Hui Singh RN. ph
--- NOTE | 2024-01-04 12:01 | EDPHYS ---
Physician Documentation [facility] Name: Win Zheng Age: 73 yrs Sex: Male : 1950 Arrival Date: 01/04/2024 Time: 10:13 Bed 3 Private MD: ED Physician Yamilet Conway HPI: 01/03 10:15 This 73 yrs old Black Male presents to ER via Unassigned with complaints of Weakness, sp3 Blood Pressure Problem - LOW. 11:48 73-year-old male with history of hepatic cirrhosis, end-stage renal disease with sp3 dialysis due today, hypertension, diabetes, GI bleed now presents to the ED via EMS for chief complaint syncope, altered mental status and generalized weakness. EMS was activated by family for patient being altered. Patient unable to answer questions and history, physical and ROS severely limited due to this. Please see MDM for continued critical care notes and CODE BLUE and subsequent resuscitation.. Historical: - Allergies: 13:02 No Known Allergies; ph - PMHx: 13:02 Atrial Fib; cirrhosis of liver; Diabetes - NIDDM; Hyperlipidemia; Hypertension; ph - Immunization history:: Adult Immunizations unknown. - Infectious Disease History:: unable to obtain. - Social history:: Smoking status: unknown. ROS: 11:49 Unable to obtain ROS due to altered mental status, obtunded state, CODE BLUE, sp3 Exam: 11:49 Constitutional: The patient appears Patient with gag reflex but severely altered and sp3 not protecting airway well. Melanotic stool noted. Distended abdomen. Coarse breath sounds bilaterally. Poor peripheral pulses. Patient maloney and ashy. 11:49 Unable to obtain exam due to altered mental status, 12:22 ECG was reviewed by the Attending Physician. EKG demonstrates sinus rhythm at 77 bpm sp3 with right bundle branch block nonspecific diffuse ST/T changes Vital Signs: 11:10 BP 92 / 48; Pulse 71; Resp 16 A; Pulse Ox 97% on ETT vent; ph 11:22 Weight 96.62 kg; ph 12:14 BP 68 / 37; Pulse 77; Resp 18; Temp 93.5(Ca); Pulse Ox 100% on ETT vent; ph Procedures: 11:56 CPR: See CPR flow sheet. Defibrillation: 200 joules X 2. regained rhythm. Intubation: sp3 Intubated orally using # 3 Walter blade with 7.5 mm ETT. was successful on first attempt. Ventilated with Ambu bag. ventilator. Tube secured with ETT palafox Placement verified by CXR, CO2 detector with (+) color change, auscultating bilateral breath sounds, Patient tolerated well. Central Line: the site was prepped with Betadine, in sterile fashion, a triple lumen catheter was inserted, in the left subclavian vein, in 1 attempts. placement was verified, by CXR, by blood return, the site was dressed with using sterile technique, the patient tolerated the procedure, well. MDM: 10:14 Medical Screening Exam initiated sp3 11:51 ED course: Patient arrived in an extremis with hypotension and heart rate in the 70s. I sp3 believe patient is on a beta-jalen. Patient was supposed to go to dialysis today. Patient started to hemodynamically deteriorate. I had emergency meeting with the family who Patient is a full code. The decision was made to intubate patient however vascular access was lost. Emergency left subclavian central line was placed by me in sterile fashion with subsequent intubation using a 4-0 Mac blade and 7.5 ET tube with direct laryngoscopy. Orogastric tube was also placed. Good breath sounds post procedures. Rocuronium and etomidate were used for intubation. Levophed was immediately started afterwards coupled with calcium gluconate. Chest x-ray demonstrates no pneumothorax and adequate placement of all tubes. Subsequent to this within the next 15 minutes patient arrested. Please see CODE BLUE sheet for series of medications including epinephrine, atropine, sodium bicarb, calcium chloride, amiodarone. Patient had 2 episodes of ventricular fibrillation for which patient was defibrillated. ROSC was returned and patient is now currently maximized on Levophed and dopamine. Fluid resuscitation is also commenced. Uncrossed match blood is been given due to continued melena and bleeding from the orogastric tube. Antibiotics also given. Protonix bolus and drip given. I had extensive conversation with family multiple times and currently patient is still full code.. 01/03 10:15 Order name: Blood Culture Adult (2) sp3 01/03 10:15 Order name: CBC with Diff; Complete Time: 11:23 sp3 01/03 10:15 Order name: CMP; Complete Time: 12:00 sp3 01/03 10:15 Order name: Lactate w/ 2H reflex if indic. sp3 01/03 10:15 Order name: Protime (+inr); Complete Time: 11:23 3 01/03 10:15 Order name: Ptt, Activated; Complete Time: 11:23 [facility] 01/03 10:15 Order name: Troponin High Sensitivity; Complete Time: 12:00 3 01/03 10:15 Order name: AMMONIA [facility] 01/03 11:31 Order name: Type And Screen bd 01/03 11:31 Order name: Bb Add On bd 01/03 11:40 Order name: PRBC [facility] 01/03 11:43 Order name: ABO/RH typing [facility] 01/03 11:43 Order name: Antibody Screen [facility] 01/03 12:32 Order name: Packed RBC Leukored [facility] 01/03 10:15 Order name: Chest Single View XRAY; Complete Time: 12:00 [facility] 01/03 10:15 Order name: Accucheck; Complete Time: 12:12 [facility] 01/03 10:15 Order name: Cardiac monitoring; Complete Time: 12:12 [facility] 01/03 10:15 Order name: Cath; Complete Time: 12:12 3 01/03 10:15 Order name: EKG - Nurse/Tech; Complete Time: 12:12 3 01/03 10:15 Order name: IV Saline Lock - Large Bore; Complete Time: 12:12 3 01/03 10:15 Order name: Labs collected and sent; Complete Time: 12:12 3 01/03 10:15 Order name: O2 Per Protocol; Complete Time: 12:12 3 01/03 10:15 Order name: O2 Sat Monitoring; Complete Time: 12:12 3 01/03 10:15 Order name: Vital Signs; Complete Time: 12:12 3 01/03 11:40 Order name: Transfuse; Complete Time: 12:11 3 Administered Medications: 10:48 Drug: Etomidate IVP 20 mg IVP once Route: IVP; Site: left subclavian; ph 11:00 Follow up: Response: No adverse reaction ph 10:49 Drug: Rocuronium IVP 80 mg IVP once Route: IVP; Site: left subclavian; ph 11:00 Follow up: Response: No adverse reaction ph 10:50 Drug: NS 0.9% IV 1000 ml IV at 1000 ml once; to be given as a bolus over 60 minutes ph Route: IV; Rate: 1000 ml; Site: left subclavian; 12:00 Follow up: Response: No adverse reaction; IV Status: Completed infusion; IV Intake: ph 1000ml 10:50 Drug: EPINEPHrine 0.1mg/mL 1:10,000 1 mg IVP once Route: IVP; Site: left subclavian; ph 11:00 Follow up: Response: No adverse reaction ph 10:50 Drug: Atropine 1 mg IVP once Route: IVP; Site: left subclavian; ph 11:10 Follow up: Response: No adverse reaction ph 10:50 Drug: Calcium Chloride 1 grams IVP once Route: IVP; Site: left subclavian; ph 11:00 Follow up: Response: No adverse reaction ph 10:56 Drug: EPINEPHrine 0.1mg/mL 1:10,000 1 mg IVP once Route: IVP; Site: left subclavian; ph 11:00 Follow up: Response: No adverse reaction ph 10:56 Drug: Calcium Chloride 1 grams IVP once Route: IVP; Site: left subclavian; ph 11:10 Follow up: Response: No adverse reaction ph 10:56 Drug: Calcium Chloride 1 grams IVP once Route: IVP; Site: left subclavian; ph 11:00 Follow up: Response: No adverse reaction ph 10:57 Drug: Sodium Bicarbonate IVP 50 mEq IVP once Route: IVP; Site: left subclavian; ph 11:00 Follow up: Response: No adverse reaction ph 10:57 Drug: Sodium Bicarbonate 1 amp IVP once; (50 mL); equals 50 mEq Route: IVP; Site: left ph subclavian; 11:00 Follow up: Response: No adverse reaction ph 10:59 Drug: Calcium Chloride 1 grams IVP once Route: IVP; Site: left subclavian; ph 11:00 Follow up: Response: No adverse reaction ph 10:59 Drug: Calcium Chloride 1 grams IVP once Route: IVP; Site: left subclavian; ph 11:00 Follow up: Response: No adverse reaction ph 11:01 Drug: EPINEPHrine 0.1mg/mL 1:10,000 1 mg IVP once Route: IVP; Site: left subclavian; ph 11:05 Follow up: Response: No adverse reaction ph 12:00 Drug: Sodium Bicarbonate 1 amp IVP once; (50 mL); equals 50 mEq Route: IVP; Site: left subclavian; 12:30 Follow up: Response: No adverse reaction ph 12:03 Drug: Calcium Gluconate IVPB 2 grams IVPB once over 60 mins; (mix in NS 100 mL) Route: ph IVPB; Infused Over: 60 mins; Site: left subclavian; 13:00 Follow up: Response: No adverse reaction; IV Status: Completed infusion ph 12:04 Drug: amiodarone 300 mg IVP once Route: IVP; Site: left subclavian; ph 12:30 Follow up: Response: No adverse reaction ph 12:05 Drug: Sodium Bicarbonate 1 amp IVP once; (50 mL); equals 50 mEq Route: IVP; Site: left subclavian; 12:30 Follow up: Response: No adverse reaction ph 12:05 Drug: Calcium Chloride 1 grams IVP once Route: IVP; Site: left subclavian; ph 12:30 Follow up: Response: No adverse reaction ph 12:05 Drug: Calcium Chloride 1 grams IVP once Route: IVP; Site: left subclavian; ph 12:30 Follow up: Response: No adverse reaction ph 12:06 Drug: Atropine 1 mg IVP once Route: IVP; Site: left subclavian; ph 12:30 Follow up: Response: No adverse reaction ph 12:09 Drug: NS 0.9% IV 1000 ml IV at 1000 ml once; to be given as a bolus over 10 minutes ph Route: IV; Rate: 1000 ml; Site: left subclavian; 13:00 Follow up: Response: No adverse reaction; IV Status: Completed infusion; IV Intake: ph 1000ml 12:20 Drug: Norepinephrine IV 0.1 mcg/kg/min IV at calculated rate See Administration ph Instructions; (Standard concentration 4 mg / 250 mL D5W); Recommended max rate 3 mcg/kg/min; Titrate 0.05 mcg/kg/min as often as every 5 minutes to achieve goal (see titration policy); Goal parameter MAP greater than 65 mmHg. Route: IV; Rate: calculated rate; Site: left subclavian; 12:30 Follow up: Response: No adverse reaction; IV Status: Infusion continued upon transfer ph 12:25 Drug: DOPamine IV (400mg/250mL Premix) 5 mcg/kg/min IV at calculated rate See ph Administration Instructions; Recommended max rate 20 mcg/kg/min; Titrate 2.5 mcg/kg/min as often as every 5 minutes to achieve goal (see titration policy); Goal parameter MAP greater than 65 mmHg. [*Low doses 1 to 4 mcg/kg/min may result in hypotension, decreased SVR*] Route: IV; Rate: calculated rate; Site: left subclavian; 12:30 Follow up: Response: No adverse reaction; IV Status: Infusion continued upon transfer ph 12:37 Drug: Pantoprazole IVP 80 mg IVP once Route: IVP; Site: left subclavian; ph 12:40 Follow up: Response: No adverse reaction ph 12:37 Drug: Cefepime IVPB 1 grams IVPB at 200 ml/hr once over 30 mins; (mix in NS 100 mL) ph Route: IVPB; Rate: 200 ml/hr; Infused Over: 30 mins; Site: left subclavian; 13:10 Follow up: Response: No adverse reaction; IV Status: Completed infusion ph 12:37 Drug: Octreotide IV 50 mcg IV at bolus once Route: IV; Rate: bolus; Site: left ph subclavian; 12:45 Follow up: Response: No adverse reaction; IV Status: Completed infusion ph 12:51 Drug: Octreotide Infusion (50 mcg/hr) - (Octreotide IV 500 mcg, NS 0.9% IV 500 ml) IV ph at 50 ml/hr continuous Route: IV; Rate: 50 ml/hr; Site: right upper arm; 13:00 Follow up: Response: No adverse reaction; IV Status: Infusion continued upon transfer ph 12:52 Drug: Pantoprazole IV 8 mg/hr IV at 25 ml/hr continuous; (Standard dilution is 80 mg in ph 250 mL NS) Route: IV; Rate: 25 ml/hr; Site: right upper arm; 13:00 Follow up: Response: No adverse reaction; IV Status: Infusion continued upon transfer ph Disposition Summary: 01/04/24 11:59 Transfer Ordered Notes: Transfer Location: [facility] sp3 Reason: Higher level of care sp3 Condition: Critical sp3 Problem: an acute exacerbation sp3 Symptoms: have worsened sp3 Accepting Physician: ALYSIA [facility]'s ICU(01/04/24 13:35) ph Diagnosis - Altered mental status, GI bleed, renal failure, cardiopulmonary resuscitation with sp3 ROSC, shock, NSTEMI Forms: - Medication Reconciliation Form sp3 - SBAR form sp3 Critical care time excluding procedures: 11:58 Critical care time: Bedside Care: 40 minutes, Consultation: 10 minutes, Family sp3 Intervention: 20 minutes. Total time: 70 minutes Signatures: Dispatcher [employer] Lucita Francis RN RN Conway, MD ADILSON Woodard sp3 Corrections: (The following items were deleted from the chart) 10:54 10:54 BLOOD CULTURE*+BA.LAB.BRZ ordered. EDMS EDMS 10:54 10:54 CBC+H.LAB.BRZ ordered. EDMS EDMS 10:54 10:54 COMPREHENSIVE METABOLIC PANEL+C.LAB.BRZ ordered. EDMS EDMS 10:54 10:54 LACTATE+C.LAB.BRZ ordered. EDMS EDMS 10:54 10:54 PROTIME (+INR)+COAG.LAB.BRZ ordered. EDMS EDMS 10:54 10:54 PTT, ACTIVATED+COAG.LAB.BRZ ordered. EDMS EDMS 10:54 10:54 Urinalysis+U.LAB.BRZ ordered. EDMS EDMS 10:54 10:54 Troponin High Sensitivity+C.LAB.BRZ ordered. EDMS EDMS 10:54 10:54 Chest Single View+RAD.RAD.BRZ ordered. EDMS EDMS 10:55 10:55 AMMONIA+C.LAB.BRZ ordered. EDMS EDMS 11:18 11:17 Sling ordered. sp3 sp3 11:26 10:49 Chest Single View ordered. EDMS EDMS 11:52 11:48 73-year-old male with history of hepatic cirrhosis, hypertension, diabetes, GI sp3 bleed now presents to the ED via EMS for chief complaint syncope, altered mental status and generalized weakness. EMS was activated by family for patient being altered. Patient unable to answer questions and history, physical and ROS severely limited due to this. Please see [facility] for continued critical care notes and CODE BLUE and subsequent resuscitation.. sp3 11:56 11:51 ED course: Patient arrived in an extremis with hypotension and heart rate in the sp3 70s. I believe patient is on a beta-jalen. Patient was supposed to go to dialysis today. sp3 13:35 11:59 TBD [facility]'s ICU sp3 ph
[2024-01-04] MEDS ORDERED: PANTOPRAZOLE 40 MG INJ ONE (12:18)
[2024-01-04] MEDS ORDERED: NA CHLORIDE 0.9% 100 ML ONE (12:18)
[2024-01-04] MEDS ORDERED: CEFEPIME 1 GM/VIAL ONE (12:19)
[2024-01-04] MEDS ORDERED: OCTREOTIDE ACETATE 100 MCG/ML ONE (12:23)
[2024-01-04] MEDS ORDERED: PANTOPRAZOLE INJ 80 MG in NA CHLORIDE 0.9% 250 ML IV SCH (13:00)
[2024-01-04] MEDS ORDERED: OCTREOTIDE 500 MCG in NA CHLORIDE 0.9% 500 ML IV SCH (13:00)
[2024-01-04] MEDS ORDERED: DOPAMINE HCL IN DEXTROSE 5 % 400 MG/250 ML KIT IV ONE (13:01)
[2024-01-04 13:50] VITALS: BP 68/37; TEMP 93.5; O2SAT 100
== END 2024-01-04 13:35 | disposition short-term general hospital (02) ==
LOC: ER 10:13
DX: K92.2 Gastrointestinal hemorrhage, unspecified (principal); I21.4 Non-ST elevation (NSTEMI) myocardial infarction; R57.9 Shock, unspecified; E11.22 Type 2 diabetes mellitus with diabetic chronic kidney disease; I12.0 Hypertensive chronic kidney disease with stage 5 chronic kidney disease or end stage renal disease; N18.6 End stage renal disease; I48.91 Unspecified atrial fibrillation; K74.60 Unspecified cirrhosis of liver; Z99.2 Dependence on renal dialysis
CPT/HCPCS: 92960; 87040; 85025; 36415; 82140; 86900 ×2; 86850 ×2; 87205; 85610; 86901 ×2; 83605; 85730; 86920 ×2; 84484; 80053; 71045; 31500; 36430; 51702; 43753; 92950 ×2; 99291; 36556; 36600; 94002; J2354 ×2; J0612; J0282; J0461; J2470 ×2; J0171; P9016 ×2; J1265; J7050 ×4; J7040; J7030; J0692; J2704